=== PATIENT | male | born 1960 | race Caucasian/White ===

== ENCOUNTER 2020-04-03 06:25 | Observation (INO) ==
[2020-04-03] MEDS ORDERED: ONDANSETRON INJ 2 MG/ML 2 ML VIAL IV STA (06:56)
[2020-04-03] MEDS ORDERED: MoRPHine SULFATE 4 MG/ML 1 ML CARP\\VIAL IV PRN (06:56)
[2020-04-03] MEDS ORDERED: SODIUM CHLORIDE 0.9% 500 ML IV SCH (07:00)
[2020-04-03] MEDS: SODIUM CHLORIDE 0.9% 1000ML 1,000 ML IV SCH ×3 (07:56→18:18)
[2020-04-03 08:24] LABS: Basophils # (auto) 0.01 K/uL (0-0.2); Basophils % (auto) 0.1 %; Eosinophils # (auto) 0.01 K/uL (0-0.5); Eosinophils % (auto) 0.1 %; Hematocrit (blood only) 47.6 % (42-52); Hemoglobin 17.2 g/dL (14.0-18.0); Immature Granulocytes # (auto) 0.03 K/uL (0.00-0.02); Immature Granulocytes % (auto) 0.2 %; Lymphocytes # (auto) 1.15 K/uL (1.2-3.4); Lymphocytes % (auto) 7.4 %; Mean Corpuscular Hemoglobin 32.1 pg (25-34); Mean Corpuscular Hgb Conc 36.1 g/dL (32-36); Mean Corpuscular Volume 88.8 fL (80-100); Mean Platelet Volume 11.2 fL (7.4-10.4); Monocytes # (auto) 0.97 K/uL (0.11-0.59); Monocytes % (auto) 6.2 %; Neutrophils # (auto) 13.42 K/uL (1.4-6.5); Platelet Count 254 K/uL (130-400); RDW Coefficient of Variation 12.6 % (11.5-14.5); RDW Standard Deviation 40.2 fL (36.4-46.3); Red Blood Count 5.36 M/uL (4.7-6.1); White Blood Count 15.59 K/uL (4.8-10.8)
[2020-04-03 08:44] LABS: Albumin Level 3.9 gm/dl (3.4-5.0); BUN Creatinine Ratio 9.6 (10-20); Calcium 9.9 mg/dl (8.5-10.1); Creatinine Clr Calc Pharmacy 39.3 ml/min; Est GFR (African American) 35.9; Potassium 4.1 mmol/L (3.5-5.1)
[2020-04-03 08:47] LABS: Albumin Globulin Ratio 0.9 (0.9-2); Bilirubin,Total 0.8 mg/dl (0.2-1); Globulin 4.3 gm/dl (2.5-4.0); Total Protein 8.2 gm/dl (6.4-8.2)
[2020-04-03] MEDS ORDERED: PIPERACILLIN/TAZOBACTAM 4.5 GM/120 ML BAG IV ONE (09:24)
[2020-04-03] MEDS ORDERED: PIPERACILL/TAZOBAC CONSULT ACTIVE PRN (09:24)
[2020-04-03] MEDS ORDERED: SODIUM CHLORIDE 0.9% 1000ML 500 ML IV ONE (09:25)
--- NOTE | 2020-04-03 09:53 | XRay Report ---
XR chest 1V portable CLINICAL HISTORY: SOB, fevers, syncope pain. Dyspnea. COMPARISON STUDY: 11/27/2019 FINDINGS: The bones soft tissues and hemidiaphragms are normal. The cardiomediastinal silhouette is n ormal. The lungs are clear. The pulmonary vasculature is normal. IMPRESSION: Negative chest. ACT 112: Negative or not required by law. The above report was generated using voice recognition software. It may contain grammatical, syntax or spelling errors. Electronically signed by: Krishna Park M.D. 04/03/2020 9:52 AM
--- NOTE | 2020-04-03 12:37 | CT Scan Report ---
CT abd pelvis wo con CT DOSE: 880.13 mGycm HISTORY: Pelvic and left lower quadrant pain diverticulitis, ARF TECHNIQUE: Multiaxial CT images of the abdomen and pelvis were performed without contrast. A dose lo wering technique was utilized adhering to the principles of ALARA. COMPARISON STUDY: None. FINDINGS: Lung bases are clear. Liver spleen and pancreas are unremarkable. 2 mm nonobstructing cortical right renal calcification. No evidence for renal hydronephrosis. The upper abdominal bowel pattern is nonobstructive. Dilation of the bowel within the pelvic region demonstrates considerable wall thickening of the sigmo id colon. There is a trace amount of pericolonic infiltrative change. This appears to be a combinatio n of acute diverticulitis superimposed upon chronic diverticular change. No evidence for abscess collection or obstruction. IMPRESSION: 1. Chronic sigmoid diverticulosis with a small component of acute superimposed diverticulitis. 2. No evidence for abscess collection or obstruction. ACT 112: Negative or not required by law. The above report was generated using voice recognition software. It may contain grammatical, syntax or spelling errors. Electronically signed by: Krishna Park M.D. 04/03/2020 12:30 PM
--- NOTE | 2020-04-03 13:39 | History & Physical Report ---
Date of Service April 03, 2020 Assessment & Plan (1) Diverticulitis: H/O Outpatient CT abd/pelvis on 02/11/2020 with probable mild sigmoid diverticulitis. Was prescribed Cipro 500mg BID and Flagyl 500mg TID x 10 days however reports took 3 days and discontinued secondary to not tolerating No h/o colonoscopy in past In ER pt afebrile, P: 50-66, R: 26 down to 18, BP: 101/63, 97/55, 109/62, 95% on RA WBC: 15, Initial lactate 2.[address] ABD/PELVIS: 1. Chronic sigmoid diverticulosis with a small component of acute superimposed diverticulitis. 2. No evidence for abscess collection or obstruction. -In ER given Zosyn, 1L NSS, zofran -Continue Zosyn with renal dosing -IVF -Clear liquid diet -GI consult -CBC, BMP in am (2) Fever: Likely secondary to diverticulitis reported fever and chills past couple of days Afebrile in ER. WBC: 15, Initial lactate 2.2 down to 1.6 CXR: no acute infiltrate -Covid 19 swab pending from ER -Airborne, contact precautions at this time -CBC in am (3) JOSH (acute kidney injury): Cr: 2.2. Baseline Cr: 1.2 -Monitor renal functions -Hold lisinopril, HCTZ and adjust home meds for renal dosing -Avoid nephrotoxic agents when possible -IVF -If no improvement or worsening consider nephrology consult (4) Syncope: Reported 3 syncopal events over past 24 hours Likely secondary to underlying illness -Tele to monitor for any arrhythmias -orthostatic vital signs (5) HTN (hypertension): BP's on low side in ER -Hold lisinopril and HCTZ (6) Gout: -Decrease allopurinol from 100mg daily to 50mg daily secondary to JOSH. Monitor and may need further decreased dosing if worsening renal functions (7) Depression: Recently started duloxetine -Continue duloxetine, however if renal functions worsen and CrCl<30 plan to hold duloxetine DVT Prophylaxis -SCDs Full Code as per discussion with pt Follows with Dr Herrera for routine care Pt seen by Dr Melgoza. Pt care coordinated with Dr Melgoza. HPI and PE per Dr Melgoza, See addendum for further assessment and plan History of Present Illness This is 59 year old with incompletely treated acute diverticulitis as outpatient and then had 3 syncope episodes at home, first one started the night before ED presentation when he was urinating and felt like he was seeing tunnel vision and then passed out for a couple minutes and found by his girlfriend Ada, then again in subsequent morning when he was about to make bowel movement with bad abdomen pain while bearing down to defecate a loose bowel movement) and he was able to get from toilet to bath tub and passed out there and also found by Ada after some minutes, and then after some time he had a vomiting episode, and then he reports third syncope while EMS tries to get him from chair to stretcher on review of systems: no fever, no headache, no current dizziness or lightheadedness. no abdomen pain. no nausea now. no chest pain. no palpitations. no shortness of breath. -he did not complete outpatient 10 day course of ciprofloxacin for diverticul itis and only around 3 days of outpatient medication due to problems with medication tolerance -ALLERGIES: he denies allergies to medications or foods -FAMILY HISTORY: reports family history of colon cancer of father, patient denies ever having colonoscopy in his own life. -ADMISSION imaging: CT abdomen: Chronic sigmoid diverticulosis with a small component of acute superimposed diverticulitis. No evidence for abscess collection or obstruction -ADMISSION labs: elevated lactic acid of 2.2 and downtrended with IV fluids, WBC on admission 15K/ul, ED physician started IV Zosyn. Continue IV Zosyn and follow the blood cultures Chief Complaint: Fever Primary Care Provider: Kb Herrera DO Allergies Allergy/AdvReac Type Severity Reaction Status Date / Time No Known Allergies Allergy Unverified 04/03/20 06:34 Home Medications Home Medications Medication Instructions Recorded Confirmed Type allopurinol 100 mg PO DAILY 04/03/20 04/03/20 History duloxetine 30 mg PO BID 04/03/20 04/03/20 History hydrochlorothiazide 25 mg PO DAILY 04/03/20 04/03/20 History lisinopril 40 mg PO DAILY 04/03/20 04/03/20 History nicotine 1 patch TRANSDERMAL DAILY 04/03/20 04/03/20 History Past Med/Surg History Medical History (Updated 04/03/20 @ 13:54 by Rlua Leivne PA-C) Depression Gout HTN (hypertension) Osteoarthritis Surgical History (Updated 04/03/20 @ 13:37 by Rula Levine PA-C) No significant past surgical history Family History (Updated 04/03/20 @ 13:43 by Rula Levine PA-C) Father Colorectal cancer Social History (Updated 04/03/20 @ 13:43 by Rula Levine PA-C) Preferred Language: Sami Feels Safe at Home: Yes Smoking Status: Former smoker Hx Alcohol Use: No Hx Substance Use: Yes substance use type: marijuana Last Used Substance Other:: daily use; last used 04/02/2020 Review of Systems Review of Systems: All systems reviewed & are unremarkable except as noted in Subjective Physical Exam Constitutional: comfortable Eyes: PERRL, conjunctivae normal, anicteric sclerae EOM intact bilaterally ENMT: external ear and nose normal, oropharynx normal Neck: trachea midline, no thyromegaly normal visual inspection Respiratory: normal respiratory effort, lungs clear to auscultation Cardiovascular: Rate/Rhythm: + bradycardic Gastrointestinal (Abdomen): Percussion/Palpation: + abdomen tender and abdomen soft Neurologic: PERRL, EOMI, accommodation nl, no face palsy, no dysarthria CN's II-XI intact bilaterally Psychiatric: A+Ox3, euthymic affect Results & Data Results & Data ([facility]) Vital Signs (Past 12 Hours) Vital Signs Temp Pulse Pulse Resp BP BP Pulse Ox 04/03/20 12:40 66 18 109/62 98 04/03/20 11:32 62 12 128/81 99 04/03/20 10:00 68 14 97/55 L 98 04/03/20 08:30 56 L 20 105/59 L 95 04/03/20 07:26 58 L 20 113/75 100 04/03/20 07:07 97 04/03/20 06:39 36.4 C L 50 L 26 H 101/63 95 Laboratory Results Short CBC 04/03/20 Range/Units 07:45 WBC 15.59 H (4.8-10.8) K/uL Hgb 17.2 (14.0-18.0) g/dL Hct 47.6 (42-52) % Plt Count 254 (130-400) K/uL BMP 04/03/20 07:45 Sodium 134 L Potassium 4.1 Chloride 100 Carbon Dioxide 24 BUN 21 H Creatinine 2.21 H Glucose 180 H Calcium 9.9 Liver Function 04/03/20 Range/Units 07:45 Total Bilirubin 0.8 (0.2-1) mg/dl AST 9 L (15-37) U/L ALT 22 (12-78) U/L Alkaline Phosphatase 87 (45-117) U/L Albumin 3.9 (3.4-5.0) gm/dl Diagnostic Findings CT ABD/PELVIS: IMPRESSION: 1. Chronic sigmoid diverticulosis with a small component of acute superimposed diverticulitis. 2. No evidence for abscess collection or obstruction. CXR: IMPRESSION: Negative chest. ECG Rate (beats per minute): 73 Rhythm: sinus rhythm Code Status & VTE Plan VTE Prophylaxis Plan VTE Prophylaxis will be ordered: Yes Supervising Physician Co-Signing Physician Notes I, Dr. Ata Melgoza, have seen and examined the patient and agrees with physician group fitness assistant department head and would like to comment that On exam General: no acute distress HEENT: normal Heart: bradycardia Lungs: clear to auscultation bilaterally Abdomen: soft, tenderness to palpation of lower to left abdomen Neuro/Extremities: no deficits, awake and alert and oriented x 3 Assessment and Plan Syncope -This is 59 year old with incompletely treated acute diverticulitis as outpatient and then had 3 syncope episodes at home, first one started the night before ED presentation when he was urinating and felt like he was seeing tunnel vision and then passed out for a couple minutes and found by his girlfriend Cris guzman, then again in subsequent morning when he was about to make bowel movement with bad abdomen pain while bearing down to defecate a loose bowel movement) and he was able to get from toilet to bath tub and passed out there and also found by Ada after some minutes, and then after some time he had a vomiting episode, and then he reports third syncope while EMS tries to get him from chair to stretcher. -these syncope episodes appear to be vasovagal versus from illness from diverticulitis, infection -rule out COVID-19 -monitor on telemetry ACUTE DIVERTICULITIS -he did not complete outpatient 10 day course of ciprofloxacin for diverticulitis and only around 3 days of outpatient medication due to problems with medication tolerance -denies allergies to medications -reports family history of colon cancer of father, patient denies ever having colonoscopy in his own life. -CT abdomen: Chronic sigmoid diverticulosis with a small component of acute superimposed diverticulitis. No evidence for abscess collection or obstruction -elevated lactic acid of 2.2 and downtrended with IV fluids, WBC on admission 15K/ul, ED physician started IV Zosyn. Continue IV Zosyn and follow the blood cultures -prn pain medication and prn antimetics -request gastroenterology consult to follow while inpatient, patient may benefit from outpatient colonoscopy after resolution of acute inflammation ACUTE KIDNEY INJURY -admission creatinine 2.2, give IV fluids and follow the creatinine Hypertension -blood pressure is not elevated on admission -hold home dose HCTZ and Lisinopril History of gout -no acute flares -continue home dose allopurinol History of Joint pain -continue home dose duloxetine Marijuana use -reports daily marijuana use to help calm him Tobacco History -reports 30 year smoking history but quit 1 month ago Code Status is full code as per my discussion with patient Ada ([phone]) is patients [facility] girlfriend whom he lives with and he would allow her to help with medical decision making if he becomes unable to make medical decisions -My colleague Dr. Oneal will be taking over the care of the patient as hospitalist starting on 04/04/2020
[2020-04-03] MEDS ORDERED: ACETAMINOPHEN 325 MG TAB PO PRN (15:54)
[2020-04-03] MEDS ORDERED: PROMETHAZINE HCL 12.5 MG in SODIUM CHLORIDE 0.9% 50 ML IV PRN (15:54)
--- NOTE | 2020-04-03 16:17 | Electrocardiogram Report ---
Test Reason : Blood Pressure : / mmHG Vent. Rate : 073 BPM Atrial Rate : 073 BPM P-R Int : 194 ms QRS Dur : 090 ms QT Int : 436 ms P-R-T Axes : 055 035 033 degrees QTc Int : 480 ms Normal sinus rhythm Minor Anterior ST elevation, most consistent with repolarization variant Prolonged QT Abnormal ECG No previous ECGs available Confirmed by Melchor Resendiz ([id number]) on 04/03/2020 4:16:57 PM Referred By: REFERRED SELF Confirmed By:Melchor Resendiz
[2020-04-03] MEDS: PIPERACILLIN/TAZOBACTAM 3.375 GM in DEXTROSE 5% 100 ML IV SCH (17:14)
--- NOTE | 2020-04-03 17:14 | Emergency Department Note ---
History of Present Illness General Chief complaint: Syncope Time Seen by Provider: 04/03/20 06:41 Source: patient and RN notes reviewed Mode of arrival: ambulatory Limitations: no limitations History of Present Illness Provider complaint: Syncope, abdominal pain Maximum Pain Intensity: 1 This patient is a 59-year-old male who presents to the emergency department by ambulance after a syncopal episode. Patient states he has had some abdominal pain since early this morning. He felt lightheaded and apparently had a syncopal episode. Patient states he felt as though he might have a bowel movement and "forced" himself up onto the toilet. The patient strained to have a bowel movement and had a subsequent syncopal episode. Patient's significant other called the ambulance. Patient admits to some subjective fevers and chills, left lower quadrant abdominal pain and some shortness of breath. He denies any blood in the stools. Patient was recently treated for diverticulitis as an outpatient. Home Medications Home Medications Medication Instructions Recorded Confirmed Type allopurinol 100 mg PO DAILY 04/03/20 04/03/20 History duloxetine 30 mg PO BID 04/03/20 04/03/20 History hydrochlorothiazide 25 mg PO DAILY 04/03/20 04/03/20 History lisinopril 40 mg PO DAILY 04/03/20 04/03/20 History nicotine 1 patch TRANSDERMAL DAILY 04/03/20 04/03/20 History Allergies Allergy/AdvReac Type Severity Reaction Status Date / Time No Known Allergies Allergy Unverified 04/03/20 06:34 Past Med/Surg History Medical History Depression Gout HTN (hypertension) Osteoarthritis Surgical History No significant past surgical history Family History Father Colorectal cancer Social History Preferred Language: Kuwaiti Communication Ability: Effective 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 and A total of 10 systems reviewed and were otherwise negative Physical Exam Vital Signs Vital Signs - 24 hr 04/03/20 07:26 04/03/20 08:30 04/03/20 10:00 Pulse Rate [Right Finger] 58 L 56 L 68 Pulse Rhythm [Right Finger] Pulse Strength [Right Finger] Respiratory Rate 20 20 14 Respiratory Effort / Characteristics Non-Labored Respiratory Depth Normal Respiratory Pattern Blood Pressure [Right Arm] 113/75 105/59 L 97/55 L Blood Pressure Mean [Right Arm] 87 74 69 Blood Pressure Position [Right Arm] Pulse Oximetry 100 95 98 Oxygen Delivery Method Room Air Room Air Room Air 04/03/20 11:32 04/03/20 12:40 Pulse Rate [Right Finger] 62 66 Pulse Rhythm [Right Finger] Regular Pulse Strength [Right Finger] Normal Respiratory Rate 12 18 Respiratory Effort / Characteristics Non-Labored Spontaneous Respiratory Depth Normal Respiratory Pattern Regular Blood Pressure [Right Arm] 128/81 109/62 Blood Pressure Mean [Right Arm] 96 77 Blood Pressure Position [Right Arm] Lying Pulse Oximetry 99 98 Oxygen Delivery Method Room Air Room Air Vital signs reviewed. General: Generally well-appearing 59-year-old male lying on his right side in some discomfort. HEENT: No scleral icterus, PERRLA, neck supple. Atraumatic. Cardiovascular: Regular rate and rhythm, no extra sounds. Pulmonary: Clear to auscultation bilaterally, normal work of breathing. Abdomen: Soft, some tenderness noted to the left lower quadrant, no rebound or guarding, nondistended, positive bowel sounds. Musculoskeletal: Atraumatic, no peripheral edema. Neurologic: Patient awake alert and oriented x 3. Skin: Warm, dry, no rash Course Administered Medications Duloxetine HCl (Cymbalta) 30 mg PO BID [facility] Stop: 05/03/20 20:59 Last Admin: 04/03/20 20:39 Dose: 30 mg Documented by: [id number] Sodium Chloride (Nss 1000ml) 1,000 mls @ 100 mls/hr IV .Q10H [facility] Stop: 04/04/20 11:53 Last Admin: 04/04/20 01:37 Dose: 100 mls/hr Documented by: [id number] Infusion: 04/04/20 01:37 Dose: 100 mls/hr Documented by: [id number] Admin: 04/03/20 17:14 Dose: 100 mls/hr Documented by: [id number] Piperacillin Sod/Tazobactam (Sod 3.375 gm/ Dextrose) 115 mls @ 28.75 mls/hr IV Q8H [facility]OB[facility]; Protocol Stop: 04/13/20 16:59 Last Infusion: 04/04/20 05:38 Dose: 0 mls/hr Documented by: [id number] Admin: 04/04/20 01:37 Dose: 28.8 mls/hr Documented by: [id number] Infusion: 04/03/20 21:30 Dose: 0 mls/hr Documented by: [id number] Admin: 04/03/20 17:14 Dose: 28.8 mls/hr Documented by: [id number] Discontinued Medications Sodium Chloride (Nss) 500 mls @ 999 mls/hr IV .Q31M [facility] Stop: 04/03/20 07:30 Last Infusion: 04/03/20 09:19 Dose: 0 mls/hr Documented by: [id number] Admin: 04/03/20 07:56 Dose: 999 mls/hr Documented by: [id number] Sodium Chloride (Nss 1000ml) 1,000 mls @ 125 mls/hr IV .Q8H [facility] Stop: 05/03/20 06:59 Last Admin: 04/03/20 18:18 Dose: Not Given Documented by: [id number] Infusion: 04/03/20 18:16 Dose: 0 mls/hr Documented by: [id number] Admin: 04/03/20 07:56 Dose: 125 mls/hr Documented by: [id number] Piperacillin Sod/Tazobactam Sod (Zosyn) 4.5 gm in 120 mls @ 240 mls/hr IV NOW ONE Stop: 04/03/20 09:53 Last Infusion: 04/03/20 12:40 Dose: 0 mls/hr Documented by: [id number] Admin: 04/03/20 11:23 Dose: 240 mls/hr Documented by: [id number] Sodium Chloride (Nss 1000ml) 500 mls @ 999 mls/hr IV .Q31M ONE Stop: 04/03/20 09:55 Last Infusion: 04/03/20 11:53 Dose: 0 mls/hr Documented by: [id number] Admin: 04/03/20 11:24 Dose: 999 mls/hr Documented by: [id number] Morphine Sulfate (Morphine Sulfate) 4 mg IV Q15M PRN PRN Reason: Pain Stop: 04/17/20 06:55 Last Admin: 04/03/20 07:56 Dose: 4 mg Documented by: [id number] Ondansetron HCl (Zofran) 4 mg IV NOW STA Stop: 04/03/20 06:57 Last Admin: 04/03/20 07:56 Dose: 4 mg Documented by: [id number] Medical Decision Making Differential Diagnosis Differential diagnosis: Etiologies such as COVID, biliary colic, cholecystitis, hepatitis, pancreatitis, cardiac disease, pancreatitis, gastritis, peptic ulcer disease, appendicitis, cystitis, diverticulitis, mesenteric ischemia, inflammatory bowel disease, ileus, bowel obstruction, testicular torsion, aortic pathology, shingles, as well as others were considered. Medical Records Attestation: I reviewed the patient's medical records. Home Medications Current Medication List: was personally reviewed by me Laboratory Data Attestation: I reviewed the patient's lab results. Result diagrams: 04/03/20 07:45 04/03/20 07:45 Lab Results 04/03/20 04/03/20 04/03/20 Range/Units 07:45 07:45 07:45 WBC 15.59 H (4.8-10.8) K/uL RBC 5.36 (4.7-6.1) M/uL Hgb 17.2 (14.0-18.0) g/dL Hct 47.6 (42-52) % MCV 88.8 (80-100) fL MCH 32.1 (25-34) pg MCHC 36.1 H (32-36) g/dL RDW Std Deviation 40.2 (36.4-46.3) fL RDW Coeff of Tavares 12.6 (11.5-14.5) % Plt Count 254 (130-400) K/uL MPV 11.2 H (7.4-10.4) fL Immature Gran % (Auto) 0.2 % Neut % (Auto) 86.0 % Lymph % (Auto) 7.4 % [place] % (Auto) 6.2 % Eos % (Auto) 0.1 % Baso % (Auto) 0.1 % Neut # (Auto) 13.42 H (1.4-6.5) K/uL Lymph # (Auto) 1.15 L (1.2-3.4) K/uL [place] # (Auto) 0.97 H (0.11-0.59) K/uL Eos # (Auto) 0.01 (0-0.5) K/uL Baso # (Auto) 0.01 (0-0.2) K/uL Immature Gran # (Auto) 0.03 H (0.00-0.02) K/uL Sodium 134 L (136-145) mmol/L Potassium 4.1 (3.5-5.1) mmol/L Chloride 100 (98-107) mmol/L Carbon Dioxide 24 (21-32) mmol/L Anion Gap 9.0 (3-11) BUN 21 H (7-18) mg/dl Creatinine 2.21 H (0.6-1.4) mg/dl Est Cr Clr Drug Dosing 39.3 ml/min Est GFR ( Amer) 35.9 Est GFR (Non-Af Amer) 31.0 BUN/Creatinine Ratio 9.6 L (10-20) Glucose 180 H (70-99) mg/dl Lactate 2.2 H* (0.4-2.0) mmol/L Calcium 9.9 (8.5-10.1) mg/dl Total Bilirubin 0.8 (0.2-1) mg/dl AST 9 L (15-37) U/L ALT 22 (12-78) U/L Alkaline Phosphatase 87 (45-117) U/L Total Protein 8.2 (6.4-8.2) gm/dl Albumin 3.9 (3.4-5.0) gm/dl Globulin 4.3 H (2.5-4.0) gm/dl Albumin/Globulin Ratio 0.9 (0.9-2) Lipase 84 (73-393) U/L Hepatitis C Ab Screen (Neg) 04/03/20 04/03/20 Range/Units 07:58 09:37 WBC (4.8-10.8) K/uL RBC (4.7-6.1) M/uL Hgb (14.0-18.0) g/dL Hct (42-52) % MCV (80-100) fL MCH (25-34) pg MCHC (32-36) g/dL RDW Std Deviation (36.4-46.3) fL RDW Coeff of Tavares (11.5-14.5) % Plt Count (130-400) K/uL MPV (7.4-10.4) fL Immature Gran % (Auto) % Neut % (Auto) % Lymph % (Auto) % [place] % (Auto) % Eos % (Auto) % Baso % (Auto) % Neut # (Auto) (1.4-6.5) K/uL Lymph # (Auto) (1.2-3.4) K/uL [place] # (Auto) (0.11-0.59) K/uL Eos # (Auto) (0-0.5) K/uL Baso # (Auto) (0-0.2) K/uL Immature Gran # (Auto) (0.00-0.02) K/uL Sodium (136-145) mmol/L Potassium (3.5-5.1) mmol/L Chloride (98-107) mmol/L Carbon Dioxide (21-32) mmol/L Anion Gap (3-11) BUN (7-18) mg/dl Creatinine (0.6-1.4) mg/dl Est Cr Clr Drug Dosing ml/min Est GFR ( Amer) Est GFR (Non-Af Amer) BUN/Creatinine Ratio (10-20) Glucose (70-99) mg/dl Lactate 1.6 (0.4-2.0) mmol/L Calcium (8.5-10.1) mg/dl Total Bilirubin (0.2-1) mg/dl AST (15-37) U/L ALT (12-78) U/L Alkaline Phosphatase (45-117) U/L Total Protein (6.4-8.2) gm/dl Albumin (3.4-5.0) gm/dl Globulin (2.5-4.0) gm/dl Albumin/Globulin Ratio (0.9-2) Lipase (73-393) U/L Hepatitis C Ab Screen Neg (Neg) Imaging Data Radiologist's Impression: CT abd pelvis wo con CT DOSE: 880.13 mGycm HISTORY: Pelvic and left lower quadrant pain diverticulitis, ARF TECHNIQUE: Multiaxial CT images of the abdomen and pelvis were performed without contrast. A dose lowering technique was utilized adhering to the principles of ALARA. COMPARISON STUDY: None. FINDINGS: Lung bases are clear. Liver spleen and pancreas are unremarkable. 2 mm nonobstructing cortical right renal calcification. No evidence for renal hydronephrosis. The upper abdominal bowel pattern is nonobstructive. Dilation of the bowel within the pelvic region demonstrates considerable wall thickening of the sigmoid colon. There is a trace amount of pericolonic i nfiltrative change. This appears to be a combination of acute diverticulitis superimposed upon chronic diverticular change. No evidence for abscess collection or obstruction. IMPRESSION: 1. Chronic sigmoid diverticulosis with a small component of acute superimposed diverticulitis. 2. No evidence for abscess collection or obstruction. ACT 112: Negative or not required by law. The above report was generated using voice recognition software. It may contain grammatical, syntax or spelling errors. Electronically signed by: Krishna Park M.D. 04/03/2020 12:30 PM Dictated: 04/03/20 1225 Transcribed: 04/03/201224 XR chest 1V portable CLINICAL HISTORY: SOB, fevers, syncope pain. Dyspnea. COMPARISON STUDY: 11/27/2019 FINDINGS: The bones soft tissues and hemidiaphragms are normal. The cardiomediastinal silhouette is normal. The lungs are clear. The pulmonary vasculature is normal. IMPRESSION: Negative chest. ACT 112: Negative or not required by law. The above report was generated using voice recognition software. It may contain grammatical, syntax or spelling errors. Electronically signed by: Krishna Park M.D. 04/03/2020 9:52 AM Dictated: 04/03/20 0952 Transcribed: 04/03/2052 ECG Data Attestation: I personally reviewed and interpreted this ECG as follows: Indication: + abdominal pain Rate (beats per minute): 73 Rhythm: + normal sinus ECG Intervals/blocks: + Normal QT-c (480) ECG ST segments: + ST elevation (anterior. likely repolarization variant) ECG Findings: no PACs and no PVCs Blood Pressure Blood Pressure Findings: Normal blood pressure Blood Pressure Disposition: further management by hospitalist MDM Narrative This patient was evaluated and appeared to be in no significant distress. Patient was placed on airborne precautions. IV access was obtained and laboratory work was drawn. An order for cardiac monitoring was placed and the patient is found to be in a normal sinus rhythm with ST elevation in the anterior leads, more likely repolarization abnormality as opposed to ischemic change. Patient's laboratory work is significant for a leukocytosis of 15.6 and a creatinine of 2.2. This is an acute change from just several months ago. Patient does have a lactate of 2.2. He did receive IV hydration with a subsequent lactate at 1.6. CT scan of the abdomen pelvis was ordered however there was a significant delay in obtaining the study. Patient did receive 1 dose of IV Zosyn for an apparent diverticulitis on CT scan. Case was discussed with the [facility] hospitalist service who evaluated the patient for admission and further management. Patient is aware of the plan and agrees. I did speak with his significant other at his request. There was a significant delay in obtaining the CAT scan with a subsequent delay in transfer from the emergency department to his admission bed. Impression & Plan Diverticulitis, Elevated lactic acid level Discharge Plan Visit Data *Final* Discharge Date/Time: 04/03/20 15:12 Chief Complaint: Syncope ED Provider: Mariana Muller Discharge Problem: Diverticulitis, Elevated lactic acid level Patient Disposition: Admitted As Inpatient Discharge Instructions Interventions: ED Discharge Assessment Last Done: 04/03/20 15:12
[2020-04-03] MEDS: DULOXETINE HCL 30 MG CAP PO SCH (20:39)
[2020-04-04] MEDS: PIPERACILLIN/TAZOBACTAM 3.375 GM in DEXTROSE 5% 100 ML IV SCH ×2 (01:37→08:00)
[2020-04-04] MEDS: SODIUM CHLORIDE 0.9% 1000ML 1,000 ML IV SCH (01:37)
[2020-04-04 06:28] LABS: Appearance Urine Clear (Clear); Bacteria Urine Automated Negative (Negative); Bilirubin Urine Negative (Negative); Blood Urine Trace (Negative); Color Urine Yellow; Glucose Urine UA Negative (Negative); Ketones Urine Negative (Negative); Leukocyte Esterase Urine Negative (Negative); Nitrite Urine Negative (Negative); Protein Urine Trace (Negative); RBC Urine Automated 0-4 /hpf (0-4); Specific Gravity Urine 1.016 (1.000-1.030); Urobilinogen Urine Negative (Negative); pH Urine 5.5 (4.5-7.5)
[2020-04-04] MEDS: DULOXETINE HCL 30 MG CAP PO SCH (07:58)
[2020-04-04 08:44] LABS: BUN Creatinine Ratio 14.1 (10-20); Calcium 8.9 mg/dl (8.5-10.1); Creatinine Clr Calc Pharmacy 54.8 ml/min; Est GFR (African American) 53.5; Est GFR (Non-African American) 46.2; Magnesium 2.1 mg/dl (1.8-2.4); Phosphorus 2.8 mg/dl (2.5-4.9); Potassium 3.9 mmol/L (3.5-5.1)
[2020-04-04 08:48] LABS: Basophils # (auto) 0.01 K/uL (0-0.2); Basophils % (auto) 0.1 %; Eosinophils # (auto) 0.03 K/uL (0-0.5); Eosinophils % (auto) 0.3 %; Hematocrit (blood only) 42.1 % (42-52); Hemoglobin 14.3 g/dL (14.0-18.0); Immature Granulocytes # (auto) 0.02 K/uL (0.00-0.02); Immature Granulocytes % (auto) 0.2 %; Lymphocytes # (auto) 1.68 K/uL (1.2-3.4); Lymphocytes % (auto) 15.6 %; Mean Corpuscular Hemoglobin 31.1 pg (25-34); Mean Corpuscular Volume 91.5 fL (80-100); Mean Platelet Volume 10.9 fL (7.4-10.4); Monocytes # (auto) 0.91 K/uL (0.11-0.59); Monocytes % (auto) 8.4 %; Neutrophils # (auto) 8.14 K/uL (1.4-6.5); Neutrophils % (auto) 75.4 %; Platelet Count 236 K/uL (130-400); RDW Coefficient of Variation 12.7 % (11.5-14.5); RDW Standard Deviation 42.6 fL (36.4-46.3); White Blood Count 10.79 K/uL (4.8-10.8)
[2020-04-04] MEDS ORDERED: NICOTINE 21 MG/24 HR TDSY TD SCH (09:00)
[2020-04-04] MEDS ORDERED: allopurinoL 100 MG TAB PO SCH (09:00)
[2020-04-04] MEDS ORDERED: HydrALAZINE HCL 20 MG/ML VIAL IV PRN (11:57)
--- NOTE | 2020-04-04 12:04 | Gastrointestinal Consultation ---
Date of Consultation April 04, 2020 Assessment & Plan (1) Diverticulitis: I discussed with the patient the importance of medication compliance, as he did not complete his antibiotic regimen in January. I would recommend Cipro 500 mg by mouth BID for 10 days and Flagyl 500 mg by mouth TID for 10 days. I would recommend a low fiber diet Will need colonoscopy as an outpatient in 6-8 weeks with [facility] Discussed case with Dr. Oneal History of Present Illness Reason for Consultation: Diverticulitis Attending Physician: Fidelia Oneal MD History of Present Illness Alirio Galeana presented to the ER yesterday with complaints of syncope, as well as LLQ abdominal pain. He was subsequently found to have a fever, elevated WBC count, elevated Cr and CT evidence of diverticulitis. He was subsequently admitted and placed on IVF and IV abx. Of note, he was diagnosed with Diverticulitis on outpatient CT imaging in late January, however, he did not complete his course of antibiotics as prescribed. At the time I saw the patient, he states that he is feeling much better. He has minimal LLQ abdominal pain, 1-2/10 in intensity, chronic, non-radiating, without exacerbating factors. He denies any fevers, chills, nausea, vomiting, hematemesis, melena, hematochezia or further episodes of syncope. He has tolerated clear liquid diet. He is requesting to go home, as he is feeling better. Allergies Allergy/AdvReac Type Severity Reaction Status Date / Time No Known Allergies Allergy Unverified 04/03/20 06:34 Home Medications Home Medications Medication Instructions Recorded Confirmed Type allopurinol 100 mg PO DAILY 04/03/20 04/03/20 History duloxetine 30 mg PO BID 04/03/20 04/03/20 History hydrochlorothiazide 25 mg PO DAILY 04/03/20 04/03/20 History lisinopril 40 mg PO DAILY 04/03/20 04/03/20 History nicotine 1 patch TRANSDERMAL DAILY 04/03/20 04/03/20 History Patient History Medical History Depression Gout HTN (hypertension) Osteoarthritis Surgical History No significant past surgical history Family History Father Colorectal cancer Social History Preferred Language: Scottish 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 Beliefs That Will Affect Care: None Current Living Situation: Significant Other Other Information That Helps Us Care for You: No Feels Safe at Home: Yes Safety Concerns: Feels Safe At This Time Smoking Status: Former smoker Tobacco Type: cigarettes ; Do You Dip or Chew Tobacco: No ; Second Hand Exposure: Yes ; Tobacco Cessation Education Requested by Patient: No Hx Alcohol Use: No Hx Substance Use: Yes substance use type: marijuana Last Used Substance: Hours (ago) Last Used Substance Other:: daily use; last used 04/02/2020 Review of Systems Constitutional: as per Subjective / HPI Eyes: as per Subjective / HPI Ear, Nose, Mouth, Throat: as per Subjective / HPI Respiratory: as per Subjective / HPI Cardiovascular: as per Subjective / HPI Gastrointestinal: as per Subjective / HPI Musculoskeletal: as per Subjective / HPI Integumentary: as per Subjective / HPI Neurologic: as per Subjective / HPI Psychiatric: as per Subjective / HPI Endocrine: as per Subjective / HPI Hematologic / Lymphatic: as per Subjective / HPI Allergy / Immunological: as per Subjective / HPI Physical Exam Constitutional: WD/WN, vitals as above Eyes: PERRL, conjunctivae normal, anicteric sclerae ENMT: external ear and nose normal, oropharynx normal Neck: trachea midline, no thyromegaly Respiratory: normal respiratory effort, lungs clear to auscultation Cardiovascular: RRR, no murmur, no edema Gastrointestinal (Abdomen): Inspection/Auscultation: normal bowel sounds; abdomen not distended Percussion/Palpation: + abdomen tender (LLQ) and abdomen soft; no guarding and abdomen not rigid Skin: no rashes, warm and dry Psychiatric: A+Ox3, euthymic affect Results & Data ([facility]) Vital Signs (Past 12 Hours) Vital Signs Temp Pulse Pulse Resp BP BP Pulse Ox 04/04/20 11:22 36.8 C 68 16 174/94 H 97 04/04/20 08:42 75 04/04/20 07:27 36.8 C 74 18 145/79 H 97 04/04/20 04:05 36.7 C 79 18 125/73 98 04/04/20 01:34 90 04/04/20 01:24 36.8 C 76 16 146/85 H 96 PG Care Time/CCT Total # of Minutes Spent Total Time Spent with Patient: Total time spent is greater than 50% in coordination of care (as documented) at patient's floor/unit and/or counseling patient: Coding Level of Care Code 88072 Inpt Consult Level 3 Diagnoses Diverticulitis K57.92
--- NOTE | 2020-04-04 15:31 | Hospitalist Progress Note ---
Date of Service April 04, 2020 Assessment & Plan (1) Diverticulitis: Present on admission with abdominal pain, vomiting and syncopal episodes CT abd/pelvis showed chronic sigmoid diverticulosis with a small component of acute superimposed diverticulitis. No evidence for abscess collection or obstruction. Recently was starting on Cipro and Flagyl and said that he only took about 3 days Then he said to the gastro team that he had a CT abd done and he was diagnosed with acute diverticulitis in January, but did not take the antibiotics that he was prescribed for at that time Started in the ER with IV zosyn Gastro on board Tolerated low fiber diet Pt wants to go home today Gastro recommended Cipro and flagyl PO for 10 days course Continue Low fiber diet for 6 weeks Follow up with Gastro for outpatient colonoscopy in 6 to 8 weeks Ok from Gastro standpoint to go home (2) Fever: Likely secondary to diverticulitis reported fever and chills past couple of days Afebrile in ER. WBC: 15, Initial lactate 2.2 down to 1.6 COVID 19 screening negative He has been afebrile WBC back to normal CXR: no acute infiltrate Received IV zosyn Will transition abx to Cipro and Flagyl PO (3) JOSH (acute kidney injury): Cr: 2.2. Baseline Cr: 1.2 Mostly due to dehydration Received IV fluid lisinopril, HCTZ on hold Creatinine today 1.5 Will avoid nephrotoxic agents when possible Will resume Lisinopril on discharge Continue to hold HCTZ Check BMP in 1 week Advised pt to stay 1 more night that we can trend the creatinine, but patient refused it (4) Syncope: Reported 3 syncopal events over past 24 hours Likely secondary to underlying illness and dehydratrion Tele monitor showed no arrhythmia Has been walking in the hallway with no discomfort Stable (5) HTN (hypertension): BP's on low side in ER BP elevated today Lisinopril and HCTZ on hold Received IV hydralazine BP improved Will resume Lisinopril on discharge Will hold HCTZ until creatinine back to baseline Continue monitor BP (6) Gout: Will resume allopurinol 100mg (7) Depression: Recently started duloxetine Continue duloxetine, however if renal functions worsen and CrCl<30 plan to hold duloxetine DVT Prophylaxis SCDs/Ambulate Full Code Disposition Pt does not want to stay in the hospital for another night Discharge home today Follow up with your PCP next week Check BMP next week Admission and Anticipated Discharge Date Admission Date: April 03, 2020 Subjective Pt was seen and examined Lying in bed with no distress Pt said that he feels fine He said that he tolerated the low fiber diet He wants to go home because he said that he is feeling better he said that he does not have any abdominal pain Denies any chest pain, palpitation, dizziness and SOB Physical Exam Physical Exam: General- No acute distress Head- atraumatic Eyes- PERRL, EOMI, ENT- oropharynx clear Neck- supple, no JVD Lungs- clear to auscultation Heart- regular rhythm; no murmur Abdomen- normal bowel sounds, soft, nontender Extremities- no calf tenderness Neuro- alert, oriented x 3; PERRL, EOMI; no facial palsy; no dysarthria Skin- warm & dry Results & Data Results & Data ([facility]) Vital Signs (Past 12 Hours) Vital Signs Temp Pulse Pulse Resp BP BP Pulse Ox 04/04/20 13:59 36.8 C 85 16 149/78 H 174/94 H 97 04/04/20 13:00 85 149/78 H 04/04/20 11:22 36.8 C 68 16 174/94 H 97 04/04/20 08:42 75 04/04/20 07:27 36.8 C 74 18 145/79 H 97 04/04/20 04:05 36.7 C 79 18 125/73 98
[2020-04-04] MEDS ORDERED: CIPROFLOXACIN 500 MG TAB PO SCH (16:05)
[2020-04-04] MEDS ORDERED: metroNIDAZOLE 500 MG TAB PO SCH (16:05)
--- NOTE | 2020-04-05 08:26 | Discharge Summary ---
Date of Service April 04, 2020 Admission HPI Per Admitting Provider This is 59 year old with incompletely treated acute diverticulitis as outpatient and then had 3 syncope episodes at home, first one started the night before ED presentation when he was urinating and felt like he was seeing tunnel vision and then passed out for a couple minutes and found by his girlfriend Ada, then again in subsequent morning when he was about to make bowel movement with bad abdomen pain while bearing down to defecate a loose bowel movement) and he was able to get from toilet to bath tub and passed out there and also found by Ada after some minutes, and then after some time he had a vomiting episode, and then he reports third syncope while EMS tries to get him from chair to stretcher on review of systems: no fever, no headache, no current dizziness or lightheadedness. no abdomen pain. no nausea now. no chest pain. no palpitations. no shortness of breath. -he did not complete outpatient 10 day course of ciprofloxacin for diverticulitis and only around 3 days of outpatient medication due to problems with medication tolerance -ALLERGIES: he denies allergies to medications or foods -FAMILY HISTORY: reports family history of colon cancer of father, patient denies ever having colonoscopy in his own life. -ADMISSION imaging: CT abdomen: Chronic sigmoid diverticulosis with a small component of acute superimposed diverticulitis. No evidence for abscess collection or obstruction -ADMISSION labs: elevated lactic acid of 2.2 and downtrended with IV fluids, WBC on admission 15K/ul, ED physician started IV Zosyn. Continue IV Zosyn and follow the blood cultures Admission Exam Per Admitting Provider Constitutional: comfortable Eyes: PERRL, conjunctivae normal, anicteric sclerae EOM intact bilaterally ENMT: external ear and nose normal, oropharynx normal Neck: trachea midline, no thyromegaly normal visual inspection Respiratory: normal respiratory effort, lungs clear to auscultation Cardiovascula + bradycardic Gastrointestinal: Percussion/Palpation: + abdomen tender and abdomen soft Neurologic: PERRL, EOMI, accommodation nl, no face palsy, no dysarthria CN's II-XI intact bilaterally Psychiatric: A+Ox3, euthymic affect Principal Diagnosis Diverticulitis: Fever: JOSH (acute kidney injury): Syncope: HTN (hypertension): Discharge Exam General- No acute distress Head- atraumatic Eyes- PERRL, EOMI, ENT- oropharynx clear Neck- supple, no JVD Lungs- clear to auscultation Heart- regular rhythm; no murmur Abdomen- normal bowel sounds, soft, nontender Extremities- no calf tenderness Neuro- alert, oriented x 3; PERRL, EOMI; no facial palsy; no dysarthria Skin- warm & dry Discharge Data Allergies Allergy/AdvReac Type Severity Reaction Status Date / Time No Known Allergies Allergy Unverified 04/03/20 06:34 Consultations 04/03/20 13:08 ED Decision to Admit Stat 04/03/20 15:54 Consult Gastroenterology Routine Ordered Studies 04/03/20 09:24 CT abd pelvis wo con Stat CT abd pelvis wo con CT DOSE: 880.13 mGycm HISTORY: Pelvic and left lower quadrant pain diverticulitis, ARF TECHNIQUE: Multiaxial CT images of the abdomen and pelvis were performed without contrast. A dose lowering technique was utilized adhering to the principles of ALARA. COMPARISON STUDY: None. FINDINGS: Lung bases are clear. Liver spleen and pancreas are unremarkable. 2 mm nonobstructing cortical right renal calcification. No evidence for renal hydronephrosis. The upper abdominal bowel pattern is nonobstructive. Dilation of the bowel within the pelvic region demonstrates considerable wall thickening of the sigmoid colon. There is a trace amount of pericolonic infiltrative change. This appears to be a combination of acute diverticulitis superimposed upon chronic diverticular change. No evidence for abscess collection or obstruction. IMPRESSION: 1. Chronic sigmoid diverticulosis with a small component of acute superimposed diverticulitis. 2. No evidence for abscess collection or obstruction. ACT 112: Negative or not required by law. The above report was generated using voice recognition software. It may contain grammatical, syntax or spelling errors. Electronically signed by: Krishna Park M.D. 04/03/2020 12:30 PM Dictated: 04/03/20 1225 Transcribed: 04/03/20 1225 XR chest 1V portable CLINICAL HISTORY: SOB, fevers, syncope pain. Dyspnea. COMPARISON STUDY: 11/27/2019 FINDINGS: The bones soft tissues and hemidiaphragms are normal. The cardiomediastinal silhouette is normal. The lungs are clear. The pulmonary vasculature is normal. IMPRESSION: Negative chest. ACT 112: Negative or not required by law. The above report was generated using voice recognition software. It may contain grammatical, syntax or spelling errors. Electronically signed by: Krishna Park M.D. 04/03/2020 9:52 AM Dictated: 04/03/20951 Transcribed: 04/03/20951 Hospital Course (1) Diverticulitis: Present on admission with abdominal pain, vomiting and syncopal episodes CT abd/pelvis showed chronic sigmoid diverticulosis with a small component of acute superimposed diverticulitis. No evidence for abscess collection or obstruction. Recently was starting on Cipro and Flagyl and said that he only took about 3 days Then he said to the gastro team that he had a CT abd done and he was diagnosed with acute diverticulitis in January, but did not take the antibiotics that he was prescribed for at that time Started in the ER with IV zosyn Gastro on board Tolerated low fiber diet Pt wants to go home today Gastro recommended Cipro and flagyl PO for 10 days course Continue Low fiber diet for 6 weeks Follow up with Gastro for outpatient colonoscopy in 6 to 8 weeks Ok from Gastro standpoint to go home (2) Fever: Likely secondary to diverticulitis reported fever and chills past couple of days Afebrile in ER. WBC: 15, Initial lactate 2.2 down to 1.6 COVID 19 screening negative He has been afebrile WBC back to normal CXR: no acute infiltrate Received IV zosyn Will transition abx to Cipro and Flagyl PO (3) JOSH (acute kidney injury): Cr: 2.2. Baseline Cr: 1.2 Mostly due to dehydration Received IV fluid lisinopril, HCTZ on hold Creatinine today 1.5 Will avoid nephrotoxic agents when possible Will resume Lisinopril on discharge Continue to hold HCTZ Check BMP in 1 week Advised pt to stay 1 more night that we can trend the creatinine, but patient refused it (4) Syncope: Reported 3 syncopal events over past 24 hours Likely secondary to underlying illness and dehydratrion Tele monitor showed no arrhythmia Has been walking in the hallway with no discomfort Stable (5) HTN (hypertension): BP's on low side in ER BP elevated today Lisinopril and HCTZ on hold Received IV hydralazine BP improved Will resume Lisinopril on discharge Will hold HCTZ until creatinine back to baseline Continue monitor BP (6) Gout: Will resume allopurinol 100mg (7) Depression: Recently started duloxetine Continue duloxetine, however if renal functions worsen and CrCl<30 plan to hold duloxetine DVT Prophylaxis SCDs/Ambulate Full Code Disposition Pt does not want to stay in the hospital for another night Discharge home today Follow up with your PCP next week Check BMP next week Total Time Total Time Spent Total Time Spent (In Minutes): 35 minutes Total Time Includes: Examination of the Patient, Discharge Planning, Medication Reconciliation, Communication With Other Providers and Other Discharge Plan Discharge Items Patient Disposition: Home - Self-Care Reason For Visit: DIVERTICULITIS,JOSH Discharge Diagnosis: Diverticulitis: Fever: JOSH (acute kidney injury): Syncope: HTN (hypertension): Activity: Resume your previous activity Non-emergency contact: Primary Care Provider Call non-emergency contact if: you have any medication questions, your symptoms worsen and your temperature is above 101 Follow-up/Referrals: Kb Herrera DO [Primary Care Provider] - Diet: Heart Healthy and Low Fiber Addtl Attending Provider Instructions: Follow up with your primary care provider Dr. Herrera within 1 week ( Please call to schedule for the appointment) Follow up with gastroenterology to arrange for a colonoscopy in 6-8 weeks Seek medical attention if your abdominal pain reoccurs or develop any fever Check BMP next week to monitor your kidney function Continue to hold the Hydrochlorothiazide until your kidney function is back to normal Monitor your blood pressure and bring your blood pressure log at your next appointment with your physician Follow up a low fiber diet for 6 weeks Please complete the course of the antibiotic with cipro and flagyl Pending Studies at Discharge: No Stand-Alone Forms: [facility] [id number], Smoking Cessation Medications and DC Order Prescriptions: Continued allopurinol 100 mg tablet 100 mg PO DAILY RF: 0 nicotine 21 mg/24 hr patch 24 hour 1 patch transdermal DAILY RF: 0 hydrochlorothiazide 25 mg tablet 25 mg PO DAILY RF: 0 lisinopril 40 mg tablet 40 mg PO DAILY RF: 0 duloxetine 30 mg capsule,delayed release(DR/EC) 30 mg PO BID RF: 0 Discharge Orders: Discharge Order (Routine); Ordered 04/04/20 Ordered By: Fidelia Oneal Admission Data Admit Date/Time: 04/03/20 13:33 Attending Provider: Fidelia Oneal Admit Provider: Ata Melgoza Primary Care Provider: Kb Herrera Other Providers: Ata Melgoza ; Rusty Davila Other Interventions: Discharge Summary Assessment (RN) Last Done: 04/04/20 13:59 DC Date/Time DO NOT enter until pt leaves facility: 04/04/20 17:45
== END 2020-04-04 17:45 | disposition home or self-care (01) ==
LOC: ED 06:25 → INTOOBSV 13:33 → 2S 13:33 → SUATTDRO 13:33 → 2S 15:12 → 2W 04-04 01:19

== ENCOUNTER 2020-09-04 00:02 | Observation (INO) ==
[2020-09-04] MEDS ORDERED: diphenhydrAMINE 50 MG/ML VIAL ONE (00:22)
[2020-09-04] MEDS ORDERED: DEXAMETHASONE SOD INJ 10 MG/ML VIAL IV ONE (00:24)
[2020-09-04] MEDS ORDERED: FAMOTIDINE 20MG IV PUSH 20 MG/5 ML SYR IV STA (00:27)
--- NOTE | 2020-09-04 00:50 | Emergency Department Note ---
Impression & Plan Allergic reaction, Angioedema ED Provider Note NAME: RAYMUNDO RUIZ JR AGE: 60 SEX: M ARRIVES VIA: Walk-In INFORMANT: Patient ED PROVIDER(S): Mary Renee DO CHIEF COMPLAINT: Painful swallowing PLAN: [facility] Condition: Good MEDICAL DECISION MAKING: This is a 60-year-old male patient who presents to the emergency department with painful swallowing and difficulty breathing. Patient has obvious edema to his uvula and posterior oropharynx as well as his right ear. Patient does take an NICOLAS inhibitor and his symptoms could be secondary to angioedema. Patient also had lobster for dinner and this could be a reaction to shellfish but this would be a new allergy for him. The patient did have some improvement in his symptoms after receiving epinephrine, Benadryl, Pepcid, Decadron and TXA. He will receive FFP to further treat the possibility of angioedema. Triage Nursing notes reviewed and agree them. Additional history obtained from the patient's longtime girlfriend who is at the bedside Prior medical records reviewed Vital Signs: reviewed and unremarkable Differential diagnosis: NICOLAS inhibitor induced angioedema; allergic reaction; anaphylaxis, epiglottitis, foreign body within the airway, COVID-19 ER treatment provided: IV Benadryl, IV Pepcid, IV Decadron, IV TXA, IV FFP Diagnostics interpreted by me: ECG: Normal sinus rhythm at a rate of 77. No ST segment elevation or signs of ischemia. There is no ectopy Cardiac Monitoring: Sinus rhythm at a rate of 84 Laboratory studies: See below HPI: 60/M arrives for evaluation of painful swallowing and difficulty breathing. The patient noticed around 8 PM this evening that he was developing a sore throat more specifically on the left side of his neck. The patient felt that the back of his throat was starting to swell. He then began to notice a change to his voice and difficulty breathing. He became concerned and his girlfriend started to drive him here. In route to the emergency department, the patient felt as if the back of his throat was starting to relax somewhat. He does admit that he had a similar episode to this a couple of months ago with left-sided throat pain that lasted for approximately 1 to 2 days but it was not nearly as severe. The patient did eat a food for dinner that contained lobster but he has had no previous shellfish allergy. The patient does take an NICOLAS inhibitor which she started taking 11 months ago. He has no other known allergies. ROS: See above HPI for pertinent positives & negatives. A total of 10 systems reviewed and were otherwise negative. PAST MEDICAL HISTORY:See Below PAST SURGICAL HISTORY:See Below FAMILY HISTORY:See Below SOCIAL HISTORY:See Below HOME MEDICATIONS:See list ALLERGIES:None VITALS:See Below PHYSICAL EXAMINATION: HEENT: Head - normocephalic and atraumatic. There is edema noted to the right ear pupils are equal, round, and reactive to light. Extraocular eye muscles are intact, and sclera are anicteric. Nose - moist nasal mucosa without discharge. Mouth -there is moderate edema noted to the uvula with severe edema noted in the posterior oropharynx. There is complete obstruction of visualization of the posterior airway. Neck: Supple; moderate fullness over the left anterior neck which is tender to palpation. There is no fullness noted in the submental region of the neck. The right anterior neck is unremarkable. There is no nuchal rigidity Heart: Regular rate and rhythm. There is a normal S1 and S2 with no murmurs, clicks, or gallops appreciated. Lungs: Clear to auscultation bilaterally with no wheezes, rales, or rhonchi. Abdomen: Soft, completely nontender, nondistended, with good bowel sounds. There are no palpable pulsatile masses or hepatosplenomegaly. There is no guarding, rigidity, or rebound noted. Extremities: No evidence of cyanosis, clubbing, or edema. There are easily palpable peripheral pulses. Skin: warm and dry with good turgor and no rashes. ED COURSE: Times/Reassessments: 0010: The patient was evaluated in room a 11. A complete history and physical was performed. An order was placed for continuous cardiac monitoring. The patient was in a normal sinus rhythm at a rate of 84. An IV lock was initiated and a twelve-lead EKG was obtained The patient was given IV Decadron, IV Benadryl and IV Pepcid. 0030: The patient was reevaluated at this time and vitals remained stable. He was feeling slightly better. He was given 1000 mg of TXA IV. Patient was ordered to have 2 units of FFP. I explained the situation to the patient's girlfriend who is now at the bedside. 0050: The patient was reevaluated at this time and thought that he was feeling slightly better. 0120: The patient thought that he was feeling slightly worse and that the right anterior aspect of his neck was starting to feel more full and painful and it was becoming more difficult for him to swallow. I ordered him to have 0.3 mg of IM epi. 0145: Patient continues to feel as if the right anterior aspect of his neck was starting to feel even tighter. The patient's O2 saturations remained normal. I paged for Dr. MINOR from ENT 0200: The patient is now starting to feel better. He states that he is now able to breathe through his nose and his voice is starting to sound more like normal. He remains hemodynamically stable. I discussed the case with ENT. 0235: The patient is able to rest comfortably at this time and breathe more normally. His right ear swelling has resolved and is voice is returning to normal. I discussed the case with Dr. Salazar who will evaluate the patient for further management. 0450: The patient was consented for the FFP. I have personally spent greater than 75 minutes of critical care time in the direct management of this patient. This includes bedside care, interpretation of diagnostic studies, and testing, discussion with consultants, patient, and family members, and other required patient management activities. This 75 minutes is in excess of all separately billable procedures. Mary Renee DO Past Med/Surg History Medical History (Updated 09/04/20 @ 05:01 by Mary Renee DO) Depression Elevated prostate specific antigen (PSA) Gout HTN (hypertension) Osteoarthritis Surgical History No significant past surgical history Family History Father Colorectal cancer Social History Smoking Status: Current every day smoker Tobacco Type: Cigarettes Second Hand Exposure: Yes; Hx Alcohol Use: No Hx Substance Use: Yes Last Used Substance: Hours (ago) Last Used Substance Other:: daily use; last used 04/02/2020 Preferred Language: Moroccan Communication Ability: Effective Jordan Worker Required: No Beliefs That Will Affect Care: None Current Living Situation: Significant Other Feels Safe at Home: Yes Assistive Devices: None Allergies Allergies Allergy/AdvReac Type Severity Reaction Status Date / Time No Known Allergies Allergy Unverified 09/04/20 00:09 Home Meds Home Medications Medication Instructions Recorded Confirmed allopurinol 100 mg PO DAILY 04/03/20 09/04/20 hydrochlorothiazide 25 mg PO DAILY 04/03/20 09/04/20 lisinopril 40 mg PO DAILY 04/03/20 09/04/20 nicotine 1 patch TRANSDERMAL DAILY 04/03/20 09/04/20 duloxetine 60 mg PO DAILY 09/04/20 09/04/20 esomeprazole magnesium 40 mg PO QAM 09/04/20 09/04/20 gabapentin 600 mg PO TID 09/04/20 09/04/20 Results & Data (ED) Vital Signs Vital Signs - 24 hr 09/04/20 00:05 09/04/20 00:34 09/04/20 01:00 Temperature 36.2 C L Temperature Source Oral Pulse Rate 88 78 78 Pulse Rate from SpO2 Sensor 77 77 Respiratory Rate 24 13 16 Respiratory Effort / Characteristics Non-Labored Spontaneous Respiratory Depth Normal Blood Pressure 125/82 113/79 123/86 Blood Pressure Mean 96 81 95 Pulse Oximetry 99 98 98 Oxygen Delivery Method Room Air Room Air Room Air Sepsis New/Unexplained Change in Mental Status N/A Sepsis Action Taken by Nursing No Action Required 09/04/20 01:16 09/04/20 01:30 09/04/20 02:00 Temperature Temperature Source Pulse Rate 76 78 Pulse Rate from SpO2 Sensor 74 76 79 Respiratory Rate 19 12 Respiratory Effort / Characteristics Respiratory Depth Blood Pressure 125/80 110/74 126/73 Blood Pressure Mean 86 78 88 Pulse Oximetry 99 97 98 Oxygen Delivery Method Room Air Room Air Room Air Sepsis New/Unexplained Change in Mental Status Sepsis Action Taken by Nursing 09/04/20 02:30 09/04/20 03:00 09/04/20 03:30 Temperature Temperature Source Pulse Rate 81 83 83 Pulse Rate from SpO2 Sensor 81 84 85 Respiratory Rate 11 L 11 L 18 Respiratory Effort / Characteristics Respiratory Depth Blood Pressure 119/65 130/76 133/81 Blood Pressure Mean 81 83 91 Pulse Oximetry 95 97 98 Oxygen Delivery Method Room Air Room Air Sepsis New/Unexplained Change in Mental Status Sepsis Action Taken by Nursing 09/04/20 04:00 09/04/20 04:30 Temperature Temperature Source Pulse Rate 76 Pulse Rate from SpO2 Sensor 76 82 Respiratory Rate 18 18 Respiratory Effort / Characteristics Respiratory Depth Blood Pressure 119/75 111/60 Blood Pressure Mean 80 81 Pulse Oximetry 96 96 Oxygen Delivery Method Sepsis New/Unexplained Change in Mental Status Sepsis Action Taken by Nursing Laboratory Data Result diagrams: 09/04/20 02:06 09/04/20 02:07 Lab Results 09/04/20 09/04/20 09/04/20 Range/Units 01:35 02:06 02:07 WBC 10.66 (4.8-10.8) K/uL RBC 4.37 L (4.7-6.1) M/uL Hgb 13.4 L (14.0-18.0) g/dL Hct 39.5 L (42-52) % MCV 90.4 (80-100) fL MCH 30.7 (25-34) pg MCHC 33.9 (32-36) g/dL RDW Std Deviation 42.2 (36.4-46.3) fL RDW Coeff of Tavares 12.8 (11.5-14.5) % Plt Count 267 (130-400) K/uL MPV 10.3 (7.4-10.4) fL Immature Gran % (Auto) 0.2 % Neut % (Auto) 67.5 % Lymph % (Auto) 25.0 % [place]haw % (Auto) 5.8 % Eos % (Auto) 1.3 % Baso % (Auto) 0.2 % Neut # (Auto) 7.20 H (1.4-6.5) K/uL Lymph # (Auto) 2.66 (1.2-3.4) K/uL [place] # (Auto) 0.62 H (0.11-0.59) K/uL Eos # (Auto) 0.14 (0-0.5) K/uL Baso # (Auto) 0.02 (0-0.2) K/uL Immature Gran # (Auto) 0.02 (0.00-0.02) K/uL Sodium 136 (136-145) mmol/L Potassium 3.5 (3.5-5.1) mmol/L Chloride 103 (98-107) mmol/L Carbon Dioxide 26 (21-32) mmol/L Anion Gap 7.0 (3-11) BUN 24 H (7-18) mg/dl Creatinine 1.70 H (0.6-1.4) mg/dl Est Cr Clr Drug Dosing 49.2 ml/min Est GFR ( Amer) 49.0 Est GFR (Non-Af Amer) 42.3 BUN/Creatinine Ratio 14.1 (10-20) Glucose 133 H (70-99) mg/dl Calcium 9.0 (8.5-10.1) mg/dl Magnesium 2.3 (1.8-2.4) mg/dl Total Bilirubin 0.4 (0.2-1) mg/dl AST 13 L (15-37) U/L ALT 16 (12-78) U/L Alkaline Phosphatase 79 (45-117) U/L Total Protein 7.0 (6.4-8.2) gm/dl Albumin 3.6 (3.4-5.0) gm/dl Globulin 3.4 (2.5-4.0) gm/dl Albumin/Globulin Ratio 1.1 (0.9-2) SARS-CoV-2 Ag (Rapid) (Negative) Blood Type A Positive Antibody Screen NEGATIVE 09/04/20 Range/Units 03:19 WBC (4.8-10.8) K/uL RBC (4.7-6.1) M/uL Hgb (14.0-18.0) g/dL Hct (42-52) % MCV (80-100) fL MCH (25-34) pg MCHC (32-36) g/dL RDW Std Deviation (36.4-46.3) fL RDW Coeff of Tavares (11.5-14.5) % Plt Count (130-400) K/uL MPV (7.4-10.4) fL Immature Gran % (Auto) % Neut % (Auto) % Lymph % (Auto) % Kershaw % (Auto) % Eos % (Auto) % Baso % (Auto) % Neut # (Auto) (1.4-6.5) K/uL Lymph # (Auto) (1.2-3.4) K/uL [place]ershaw # (Auto) (0.11-0.59) K/uL Eos # (Auto) (0-0.5) K/uL Baso # (Auto) (0-0.2) K/uL Immature Gran # (Auto) (0.00-0.02) K/uL Sodium (136-145) mmol/L Potassium (3.5-5.1) mmol/L Chloride (98-107) mmol/L Carbon Dioxide (21-32) mmol/L Anion Gap (3-11) BUN (7-18) mg/dl Creatinine (0.6-1.4) mg/dl Est Cr Clr Drug Dosing ml/min Est GFR ( Amer) Est GFR (Non-Af Amer) BUN/Creatinine Ratio (10-20) Glucose (70-99) mg/dl Calcium (8.5-10.1) mg/dl Magnesium (1.8-2.4) mg/dl Total Bilirubin (0.2-1) mg/dl AST (15-37) U/L ALT (12-78) U/L Alkaline Phosphatase (45-117) U/L Total Protein (6.4-8.2) gm/dl Albumin (3.4-5.0) gm/dl Globulin (2.5-4.0) gm/dl Albumin/Globulin Ratio (0.9-2) SARS-CoV-2 Ag (Rapid) Negative (Negative) Blood Type Antibody Screen Administered Medications Discontinued Medications Dexamethasone (Dexamethasone Sod Inj 10 Mg/Ml Vial) 10 mg IV ONCE ONE Stop: 09/04/20 00:25 Last Admin: 09/04/20 00:24 Dose: 10 mg Documented by: [id number] Diphenhydramine HCl (Diphenhydramine 50 Mg/Ml Vial) Confirm Administered Dose 50 mg .ROUTE .STK-MED ONE Stop: 09/04/20 00:23 Last Admin: 09/04/20 00:24 Dose: 50 mg Documented by: [id number] Epinephrine HCl (Epinephrine Inj 1 Mg/Ml Amp) 0.3 mg IM NOW STA Stop: 09/04/20 01:15 Last Admin: 09/04/20 01:19 Dose: 0.3 mg Documented by: [id number] Famotidine (Pepcid 20mg Iv Push) 20 mg in 5 mls @ 2.5 mls/min IV NOW STA Stop: 09/04/20 00:28 Last Admin: 09/04/20 00:36 Dose: 2.5 mls/min Documented by: [id number] Tranexamic Acid (Tranexamic Acid / 0.7% Nacl) 1,000 mg in 100 mls @ 600 mls/hr IV NOW STA Stop: 09/04/20 01:27 Last Infusion: 09/04/20 01:34 Dose: 0 mls/hr Documented by: [id number] Admin: 09/04/20 01:23 Dose: 600 mls/hr Documented by: [id number] Discharge Plan Visit Data Chief Complaint: Throat Pain Stated Complaint: HARD TO BREATHE,CHEST PAIN ED Provider: Mary Renee Discharge Problem: Allergic reaction, Angioedema Forms Stand Alone Forms: [facility] Prescriptions Prescriptions: No Action gabapentin 300 mg capsule 600 mg PO TID RF: 0 esomeprazole magnesium 40 mg capsule,delayed release(DR/EC) 40 mg PO QAM RF: 0 duloxetine 60 mg capsule,delayed release(DR/EC) 60 mg PO DAILY RF: 0 allopurinol 100 mg tablet 100 mg PO DAILY RF: 0 nicotine 21 mg/24 hr patch 24 hour 1 patch transdermal DAILY RF: 0 hydrochlorothiazide 25 mg tablet 25 mg PO DAILY RF: 0 lisinopril 40 mg tablet 40 mg PO DAILY RF: 0 Discharge Problem: Allergic reaction Qualifiers: Encounter type: initial encounter Qualified Code(s): T78.40XA - Allergy, unspecified, initial encounter Angioedema Qualifiers: Encounter type: initial encounter Qualified Code(s): T78.3XXA - Angioneurotic edema, initial encounter
[2020-09-04] MEDS ORDERED: EPINEPHrine INJ 1 MG/ML AMP IM STA (01:14)
[2020-09-04] MEDS ORDERED: SODIUM CHLORIDE 0.9% 250 ML IV PRN (01:15)
[2020-09-04] MEDS ORDERED: TRANEXAMIC ACID / 0.7% NACL 1,000 MG/100 ML BAG IV STA (01:18)
[2020-09-04 02:15] LABS: Basophils # (auto) 0.02 K/uL (0-0.2); Basophils % (auto) 0.2 %; Eosinophils # (auto) 0.14 K/uL (0-0.5); Eosinophils % (auto) 1.3 %; Hematocrit (blood only) 39.5 % (42-52); Hemoglobin 13.4 g/dL (14.0-18.0); Immature Granulocytes # (auto) 0.02 K/uL (0.00-0.02); Immature Granulocytes % (auto) 0.2 %; Lymphocytes # (auto) 2.66 K/uL (1.2-3.4); Mean Corpuscular Hemoglobin 30.7 pg (25-34); Mean Corpuscular Hgb Conc 33.9 g/dL (32-36); Mean Corpuscular Volume 90.4 fL (80-100); Mean Platelet Volume 10.3 fL (7.4-10.4); Monocytes # (auto) 0.62 K/uL (0.11-0.59); Monocytes % (auto) 5.8 %; Neutrophils % (auto) 67.5 %; Platelet Count 267 K/uL (130-400); RDW Coefficient of Variation 12.8 % (11.5-14.5); RDW Standard Deviation 42.2 fL (36.4-46.3); Red Blood Count 4.37 M/uL (4.7-6.1); White Blood Count 10.66 K/uL (4.8-10.8)
[2020-09-04 03:34] LABS: Albumin Level 3.6 gm/dl (3.4-5.0); BUN Creatinine Ratio 14.1 (10-20); Creatinine Clr Calc Pharmacy 49.2 ml/min; Est GFR (Non-African American) 42.3; Magnesium 2.3 mg/dl (1.8-2.4); Potassium 3.5 mmol/L (3.5-5.1)
[2020-09-04 03:36] LABS: Albumin Globulin Ratio 1.1 (0.9-2); Bilirubin,Total 0.4 mg/dl (0.2-1); Globulin 3.4 gm/dl (2.5-4.0)
--- NOTE | 2020-09-04 03:48 | History & Physical Report ---
Date of Service September 04, 2020 Assessment & Plan (1) SOB (shortness of breath): Secondary to retropharyngeal swelling (abscess versus phlegmon on initial CT read) No sepsis for now hypertension, stable ARF on CRI (baseline creatinine 1.3) mood disorder, at baseline chronic back pain, elective surgery contemplated by [facility] Hyperglycemia rule out DM past tobacco abuse Medical telemetry given potential for airway obstruction [facility] ENT evaluation RE retropharyngeal swelling (Case discussed with Dr. Jaimes who agrees with antibiotic Rx. He recommends n.p.o. status for now in anticipation of endoscopic procedure and Solu-Medrol 100 mg BID). Baseline UA, monitor creatinine response to IVF Hold NICOLAS inhibitor and diuretic for now given kidney dysfunction. Initiate amlodipine for maintenance blood pressure medication. Check hemoglobin A1c Basal insulin, ISS BG goal [id number] given anticipated hyperglycemia from high- dose IV steroids DVT prophylaxis. SCDs RE possible ENT procedure Recommend pharmacologic anticoagulation with Heparin 5000 units subcutaneous every 8 hours once bleeding risk is minimal and negligible pending ENT evaluation. Full code Text document was generated using [employer] voice recognition software. It may contain grammatical or spelling errors. Kindly contact undersigned for clarification of any documentation item in question. History of Present Illness Chief Complaint: Sore throat, shortness of breath Primary Care Provider: Kb Herrera DO History obtained from patient, family, and records. Medical history significant for hypertension, CRI (baseline creatinine 1.3), mood disorder, chronic back pain, Garcia's esophagus, past tobacco abuse. Last confinement April 2020 for acute diverticulitis. Last night, patient noted sudden onset odynophagia, sore throat symptoms without fever, and chills. Had some lobster about 3 hours before onset of symptoms. No chest pain. No rash, no pruritus. Some shortness of breath because he felt like his throat was closing. No tooth ache symptoms or denture problems as per patient. Voice change noted. No unusual cough symptoms. May have had a transient episode about 6 months ago. At the ER, patient received Decadron, Benadryl, Famotidine, FFP for possible anaphylaxis/angioedema. Patient currently feeling better. Medical History as above hx PSA elevation, patient following with [facility] Surgical History : None Family History : Hypertension Personal/Social history : Past tobacco abuse, occasional EtOH intake, disabled Allergies Allergy/AdvReac Type Severity Reaction Status Date / Time No Known Allergies Allergy Unverified 09/04/20 00:09 Home Medications Medication Instructions Recorded Confirmed Type allopurinol 100 mg PO DAILY 04/03/20 09/04/20 History hydrochlorothiazide 25 mg PO DAILY 04/03/20 09/04/20 History lisinopril 40 mg PO DAILY 04/03/20 09/04/20 History nicotine 1 patch TRANSDERMAL DAILY 04/03/20 09/04/20 History duloxetine 60 mg PO DAILY 09/04/20 09/04/20 History esomeprazole magnesium 40 mg PO QAM 09/04/20 09/04/20 History gabapentin 600 mg PO TID 09/04/20 09/04/20 History Past Med/Surg History Medical History Depression Elevated prostate specific antigen (PSA) Gout HTN (hypertension) Osteoarthritis Surgical History No significant past surgical history Family History Father Colorectal cancer Social History Smoking Status: Former smoker Tobacco Type: Cigarettes Smoking End Date: quit once week ago; Second Hand Exposure: Yes; Hx Alcohol Use: No Hx Substance Use: No Preferred Language: Icelandic Communication Ability: Effective Brusher Required: No Beliefs That Will Affect Care: None Current Living Situation: Significant Other Current Living Situation Comment: with girlfriend Ada Feels Safe at Home: Yes Safety Concerns: Feels Safe At This Time Assistive Devices: Denture - Upper, Denture - Lower and Glasses Review of Systems Review of Systems: As per HPI, all 10 systems reviewed, all other ROS negative Physical Exam Physical Exam: GENERAL: Comfortable, pleasant, no stridor, no respiratory distress SKIN: Normal color, warm HEENT: Mcclelland palpebral conjunctivae, no ptosis, dry buccal mucosa, minimal pharyngeal congestion NECK : Supple, no tenderness CHEST : CTA, no tenderness HEART : RRR, no obvious murmurs ABDOMEN: Some distention, nontender EXTREMITIES : No LE swelling/tenderness, no other conspicuous deformities noted NEUROLOGIC : Coherent, no facial asymmetry, no other gross focality Results & Data Results & Data ([facility]) Vital Signs (Past 12 Hours) Vital Signs Temp Pulse Resp BP Pulse Ox 09/04/20 03:00 83 11 L 130/76 97 09/04/20 02:30 81 11 L 119/65 95 09/04/20 02:00 78 12 126/73 98 09/04/20 01:30 76 19 110/74 97 09/04/20 01:16 125/80 99 09/04/20 01:00 78 16 123/86 98 09/04/20 00:34 78 13 113/79 98 09/04/20 00:05 36.2 C L 88 24 125/82 99 Laboratory Results Laboratory Results WBC 10.66 K/uL (4.8-10.8) 09/04/20 02:06 RBC 4.37 M/uL (4.7-6.1) L 09/04/20 02:06 Hgb 13.4 g/dL (14.0-18.0) L 09/04/20 02:06 Hct 39.5 % (42-52) L 09/04/20 02:06 MCV 90.4 fL (80-100) 09/04/20 02:06 MCH 30.7 pg (25-34) 09/04/20 02:06 MCHC 33.9 g/dL (32-36) 09/04/20 02:06 RDW Std Deviation 42.2 fL (36.4-46.3) 09/04/20 02:06 RDW Coeff of Tavares 12.8 % (11.5-14.5) 09/04/20 02:06 Plt Count 267 K/uL (130-400) 09/04/20 02:06 MPV 10.3 fL (7.4-10.4) 09/04/20 02:06 Immature Gran % (Auto) 0.2 % 09/04/20 02:06 Neut % (Auto) 67.5 % 09/04/20 02:06 Lymph % (Auto) 25.0 % 09/04/20 02:06 [place] % (Auto) 5.8 % 09/04/20 02:06 Eos % (Auto) 1.3 % 09/04/20 02:06 Baso % (Auto) 0.2 % 09/04/20 02:06 Neut # (Auto) 7.20 K/uL (1.4-6.5) H 09/04/20 02:06 Lymph # (Auto) 2.66 K/uL (1.2-3.4) 09/04/20 02:06 [place] # (Auto) 0.62 K/uL (0.11-0.59) H 09/04/20 02:06 Eos # (Auto) 0.14 K/uL (0-0.5) 09/04/20 02:06 Baso # (Auto) 0.02 K/uL (0-0.2) 09/04/20 02:06 Immature Gran # (Auto) 0.02 K/uL (0.00-0.02) 09/04/20 02:06 Sodium 136 mmol/L (136-145) 09/04/20 02:07 Potassium 3.5 mmol/L (3.5-5.1) 09/04/20 02:07 Chloride 103 mmol/L (98-107) 09/04/20 02:07 Carbon Dioxide 26 mmol/L (21-32) 09/04/20 02:07 Anion Gap 7.0 (3-11) 09/04/20 02:07 BUN 24 mg/dl (7-18) H 09/04/20 02:07 Creatinine 1.70 mg/dl (0.6-1.4) H 09/04/20 02:07 Est Cr Clr Drug Dosing 49.2 ml/min 09/04/20 02:07 Est GFR ( Amer) 49.0 09/04/20 02:07 Est GFR (Non-Af Amer) 42.3 09/04/20 02:07 BUN/Creatinine Ratio 14.1 (10-20) 09/04/20 02:07 Glucose 133 mg/dl (70-99) H 09/04/20 02:07 Calcium 9.0 mg/dl (8.5-10.1) 09/04/20 02:07 Magnesium 2.3 mg/dl (1.8-2.4) 09/04/20 02:07 Total Bilirubin 0.4 mg/dl (0.2-1) 09/04/20 02:07 AST 13 U/L (15-37) L 09/04/20 02:07 ALT 16 U/L (12-78) 09/04/20 02:07 Alkaline Phosphatase 79 U/L (45-117) 09/04/20 02:07 Total Protein 7.0 gm/dl (6.4-8.2) 09/04/20 02:07 Albumin 3.6 gm/dl (3.4-5.0) 09/04/20 02:07 Globulin 3.4 gm/dl (2.5-4.0) 09/04/20 02:07 Albumin/Globulin Ratio 1.1 (0.9-2) 09/04/20 02:07 SARS-CoV-2 Ag (Rapid) Negative (Negative) 09/04/20 03:19 Blood Type A Positive 09/04/20 01:35 Antibody Screen NEGATIVE 09/04/20 01:[address] neck initial read: Chronic appearing right cerebellar infarcts. Soft tissue thickening hypopharynx left greater than the right. Diffuse retropharyngeal soft tissue thickening with subtle low-attenuation extending from C2-C6 measuring up to 1 cm in thickness suspicious for retropharyngeal phlegmon/abscess. Mildly thickened epiglottitis. Unable to exclude appendicitis in appropriate clinical setting. Close glottis which could be related to breath-hold. No enlarged cervical lymph nodes. Chest x-ray as per my interpretation no congestion, no infiltrate EKG as per my interpretation : Rate 75, NSR, normal axis, 1 AVB no ischemia
[2020-09-04] MEDS ORDERED: AMPICILLIN/SULBACTAM SOD 3,000 MG in 0.9 % SODIUM CHLORIDE 100 ML IV STA (04:34)
[2020-09-04] MEDS ORDERED: AMPICILLIN/SULBACTAM CONSULT ACTIVE PRN (05:25)
[2020-09-04] MEDS ORDERED: POTASSIUM CHLORIDE 40 MEQ in SODIUM CHLORIDE 0.9% 1000ML 1,000 ML IV SCH (06:06)
[2020-09-04] MEDS ORDERED: ACETAMINOPHEN 325 MG TAB PO PRN (06:06)
[2020-09-04] MEDS ORDERED: INSULIN GLARGINE SOLOSTAR 100 UNITS/ML 3 ML PEN SC STA (06:06)
[2020-09-04] MEDS ORDERED: GLUCAGON FOR INJ 1 MG VIAL SQ PRN (06:06)
[2020-09-04] MEDS ORDERED: PROMETHAZINE HCL 12.5 MG in SODIUM CHLORIDE 0.9% 50 ML IV PRN (06:06)
[2020-09-04] MEDS ORDERED: traMADol HCL 50 MG TABLET PO PRN (06:06)
[2020-09-04] MEDS ORDERED: GLUCOSE 40% GEL 15 GM TUBE PO PRN (06:06)
[2020-09-04] MEDS ORDERED: DEXTROSE 50% 50 ML SYRINGE IV PRN (06:06)
[2020-09-04] MEDS ORDERED: GLUCOSE 10 TABS/TUBE PO PRN (06:06)
[2020-09-04] MEDS ORDERED: INSULIN ASPART 100 UNITS/ML 3 ML PEN SC SCH ×2 (06:06→11:30)
[2020-09-04] MEDS ORDERED: CARBOHYDRATES FOR HYPOGLYCEMIA PO PRN (06:06)
[2020-09-04] MEDS: AMPICILLIN/SULBACTAM SOD 3,000 MG in 0.9 % SODIUM CHLORIDE 100 ML IV SCH ×3 (06:55→11:52)
--- NOTE | 2020-09-04 07:28 | XRay Report ---
XR chest 1V portable HISTORY: 60 years-old Male sob acute shortness of breath COMPARISON: CT soft tissue neck of same day, chest radiographs 04/03/2020 TECHNIQUE: Portable AP view of the chest FINDINGS: Cardiomediastinal and hilar silhouettes are within normal limits. There is no pneumothorax, pleural e ffusion, airspace consolidation or overt pulmonary edema. Degenerative changes of the shoulders and s pine. IMPRESSION: No acute process. ACT 112: Negative or not required by law. The above report was generated using voice recognition software. It may contain grammatical, syntax o r spelling errors. Electronically signed by: Дмитрий Floyd M.D. 09/04/2020 7:27 AM
--- NOTE | 2020-09-04 07:47 | Electrocardiogram Report ---
Test Reason : Blood Pressure : / mmHG Vent. Rate : 077 BPM Atrial Rate : 077 BPM P-R Int : 202 ms QRS Dur : 090 ms QT Int : 394 ms P-R-T Axes : 032 -09 022 degrees QTc Int : 445 ms Normal sinus rhythm with 1st degree AV block Normal ECG When compared with ECG of 03-APR-2020 07:26, ID is slightly longer Confirmed by Mani Alcala ([id number]) on 09/04/2020 7:46:56 AM Referred By: REFERRED SELF Confirmed By:Tyson Alcala
[2020-09-04] MEDS: GABAPENTIN 300 MG CAP PO SCH ×2 (08:30→13:47)
--- NOTE | 2020-09-04 08:38 | ENT Consultation ---
Date of Consultation September 04, 2020 Assessment & Plan (1) Angioedema: All the findings and CT scan was consistent with angioedema. His uvular swelling has subsided. His voice has improved. He is able to swallow. There is no sign of retropharyngeal abscess. He should respond well to Solu-Medrol. At this point I do not feel laryngoscopy is indicated and that he is greatly improved. No surgical intervention contemplated at this time. (2) Allergic reaction: (3) SOB (shortness of breath): History of Present Illness Reason for Consultation: Angioedema Attending Physician: Rob Tripp MD History of Present Illness This 60-year-old gentleman had acute onset of throat swelling after his dinner which included lobster at 8 PM. He presented to the emergency room and was treated by Dr. Renee. I was called to 1:40 AM because of increasing swelling however she stated that the patient was finally improving after injection of epinephrine. I was called again at [address] Tripp when he admitted the patient and saw the CT scan showing possible retropharyngeal abscess. He was still improving at that time therefore came in at 6 AM and saw the patient. At that time he feels that his throat is much less swollen, he was able to talk were last night he was unable to talk, and he was able to swallow liquids whereas last evening he was unable to swallow. I reviewed the CT scan which did indeed show uvular edema and epiglottic edema and left arytenoid edema however the glottis looked open on the CT scan. Allergies Allergy/AdvReac Type Severity Reaction Status Date / Time No Known Allergies Allergy Unverified 09/04/20 00:09 Home Medications Medication Instructions Recorded Confirmed Type allopurinol 100 mg PO DAILY 04/03/20 09/04/20 History hydrochlorothiazide 25 mg PO DAILY 04/03/20 09/04/20 History lisinopril 40 mg PO DAILY 04/03/20 09/04/20 History nicotine 1 patch TRANSDERMAL DAILY 04/03/20 09/04/20 History duloxetine 60 mg PO DAILY 09/04/20 09/04/20 History esomeprazole magnesium 40 mg PO QAM 09/04/20 09/04/20 History gabapentin 600 mg PO TID 09/04/20 09/04/20 History Patient History Medical History Depression Elevated prostate specific antigen (PSA) Gout HTN (hypertension) Osteoarthritis Surgical History No significant past surgical history Family History Father Colorectal cancer Social History Smoking Status: Former smoker Tobacco Type: Cigarettes Smoking End Date: quit once week ago; Second Hand Exposure: Yes; Hx Alcohol Use: No Hx Substance Use: No Preferred Language: Mauritian Communication Ability: Effective Component Overhaul Operator Required: No Beliefs That Will Affect Care: None Current Living Situation: Significant Other Current Living Situation Comment: with girlfriend Ada Feels Safe at Home: Yes Safety Concerns: Feels Safe At This Time Assistive Devices: Denture - Upper, Denture - Lower and Glasses Physical Exam Constitutional: WD/WN, vitals as above well developed and + acute distress (His voice was good and you was able to swallow, much improved from last courtney) Eyes: PERRL, conjunctivae normal, anicteric sclerae ENMT: Ears: + TM abnormality (TMs normal with slight cerumen) Nose: + turbinate abnormality (Slight swelling of the nasal turbinates) Mouth: + oropharynx abnormality (Uvula is swollen to small finger size, was thumb sized earlier in the eveni) Neck: trachea midline, no thyromegaly Respiratory: normal respiratory effort and able to speak in complete sentences Cardiovascular: RRR, no murmur, no edema Results & Data ([facility]) Vital Signs (Past 12 Hours) Vital Signs Temp Pulse Pulse Resp BP BP Pulse Ox 09/04/20 06:51 36.7 C 85 15 125/74 98 09/04/20 06:17 36.8 C 84 20 132/78 98 09/04/20 05:39 81 18 134/78 99 09/04/20 05:24 81 18 116/74 97 09/04/20 05:15 116/74 97 09/04/20 05:03 36.8 C 77 18 119/72 98 09/04/20 05:02 119/72 99 09/04/20 04:30 18 111/60 96 09/04/20 04:00 76 18 119/75 96 09/04/20 03:30 83 18 133/81 98 09/04/20 03:00 83 11 L 130/76 97 09/04/20 02:30 81 11 L 119/65 95 09/04/20 02:00 78 12 126/73 98 09/04/20 01:30 76 19 110/74 97 09/04/20 01:16 125/80 99 09/04/20 01:00 78 16 123/86 98 09/04/20 00:34 78 13 113/79 98 09/04/20 00:05 36.2 C L 88 24 125/82 99 (1) Angioedema Encounter type: initial encounter Qualified Code(s): T78.3XXA - Angioneurotic edema, initial encounter (2) Allergic reaction Encounter type: initial encounter Qualified Code(s): T78.40XA - Allergy, unspecified, initial encounter
[2020-09-04 08:46] LABS: Estimated Average Glucose 126 mg/dl
--- NOTE | 2020-09-04 08:50 | CT Scan Report ---
CT SCAN OF THE NECK WITHOUT IV CONTRAST CLINICAL HISTORY: Sore throat. COMPARISON STUDY: No priors. TECHNIQUE: Unenhanced CT scan of the soft tissues of the neck was performed from the skull base to th e upper chest. Images are reviewed in the axial, sagittal, and coronal planes. IV contrast was not a dministered as per the referring clinician. Note that the examination was performed in significantly suboptimal fashion without IV contrast. A dose lowering technique was utilized adhering to the princ iplbernard of JOSE L. CT DOSE: 803.97 mGy.cm FINDINGS: Pharynx: There is marked soft tissue edema and inflammation seen involving the pharyngeal soft tissue s. This causes mild narrowing of the airway. The epiglottis is thickened. There is mild infiltration of the parapharyngeal fat. There is also retropharyngeal edema. No organized fluid collection is seen on this unenhanced examination. There is no evidence of mass lesion. The vocal cords are symmetric. The patient is edentulous. Lymphadenopathy: No cervical lymphadenopathy is seen. There is atherosclerotic calcification of the c arotid bulbs. Thyroid: Normal in size and attenuation. Salivary glands: The parotid and submandibular glands are within normal limits. Brain parenchyma: Chronic lacunar infarcts are noted in the right cerebellum. The visualized brain pa renchyma is otherwise normal in appearance. Skeletal structures: Imaged portions of the calvarium at the skull base are within normal limits. The cervical spine appears intact noting multilevel spondylosis. No lytic or blastic lesion is seen. Orbits: The bony orbits are intact. Orbital contents are normal as visualized. Sinuses and mastoids: Trace mucosal thickening is seen in the left maxillary antrum. The paranasal si nuses are otherwise clear. The mastoid air cells are well pneumatized. Lung apices: Visualized apical lung parenchyma is clear. IMPRESSION: 1. There is diffuse soft tissue thickening and edema seen throughout the pharyngeal soft tissues cons istent with a nonspecific pharyngitis. 2. There is mild infiltration of the parapharyngeal fat bilaterally, as well as significant retrophar yngeal soft tissue thickening and edema. Retropharyngeal phlegmonous change is not excluded. 3. No organized fluid collection is clearly identified on this unenhanced examination. If there is cl inical concern for retropharyngeal abscess then a contrast enhanced study should be obtained. 4. There is also thickening of the epiglottis. Epiglottitis is not excluded in the appropriate clinic al setting. 5. Inflammation/edema causes mild narrowing of the pharyngeal airway. 6. No cervical lymphadenopathy is identified. ACT 112: Negative or not required by law. Electronically signed by: Hakeem Miller M.D. 09/04/2020 8:48 AM
[2020-09-04] MEDS ORDERED: FAMOTIDINE 20 MG TAB PO SCH (09:00)
[2020-09-04] MEDS ORDERED: amLODIPine BESYLATE 5 MG TAB PO SCH (09:00)
[2020-09-04] MEDS ORDERED: allopurinoL 100 MG TAB PO SCH (09:00)
[2020-09-04] MEDS ORDERED: PANTOprazole 40 MG TAB PO SCH (09:00)
[2020-09-04] MEDS ORDERED: CETIRIZINE HCL 10 MG TABLET PO SCH (09:00)
[2020-09-04] MEDS ORDERED: DULoxetine HCL 60 MG CAP PO SCH (09:00)
[2020-09-04] MEDS ORDERED: methylPREDNISolone 100 MG in SYRINGE 0 ML IV SCH (09:00)
[2020-09-04] MEDS ORDERED: NICOTINE 21 MG/24 HR TDSY TD SCH (09:00)
[2020-09-04 10:05] LABS: Appearance Urine Clear (Clear); Bilirubin Urine Negative (Negative); Blood Urine Negative (Negative); Color Urine Yellow; Glucose Urine UA Negative (Negative); Ketones Urine Trace (Negative); Leukocyte Esterase Urine Negative (Negative); Nitrite Urine Negative (Negative); Protein Urine Negative (Negative); Specific Gravity Urine 1.022 (1.000-1.030); Urobilinogen Urine Negative (Negative)
[2020-09-04] MEDS ORDERED: Nursing to Pharmacy Communication SCH (11:45)
--- NOTE | 2020-09-04 13:00 | Hospitalist Progress Note ---
Date of Service September 04, 2020 Assessment & Plan (1) Allergic reaction: (2) Angioedema: Sore throat, shortness of breath likely secondary to angioedema, possible anaphylactic reaction Likely secondary to lobster allergy versus lisinopril allergic reaction --Soft tissue neck: 1. There is diffuse soft tissue thickening and edema seen throughout the pharyngeal soft tissues consistent with a nonspecific pharyngitis. 2. There is mild infiltration of the parapharyngeal fat bilaterally, as well as significant retropharyngeal soft tissue thickening and edema. Retropharyngeal phlegmonous change is not excluded. 3. No organized fluid collection is clearly identified on this unenhanced exami nation. If there is clinical concern for retropharyngeal abscess then a contrast enhanced study should be obtained. 4. There is also thickening of the epiglottis. Epiglottitis is not excluded in the appropriate clinical setting. 5. Inflammation/edema causes mild narrowing of the pharyngeal airway. 6. No cervical lymphadenopathy is identified. --ENT Dr. Jaimes consulted, retropharyngeal abscess unlikely, does not recommend antibiotics at this time Recommend Medrol Dosepak, antihistamines --Patient back to baseline according to him --Discharge plan: Medrol Dosepak Zyrtec 20 mg daily Famotidine 20 mg twice daily Benadryl as needed Epinephrine as needed Refer to manager rental for serologic testing --Discussed in detail and at length with patient Advised not to consume shellfish or seafood at this Advised to stop lisinopril Educated on signs and symptoms of allergy, anaphylactic reaction, use of EpiPen, steps to take during an emergency Verbalized understanding, agreement Mild creatinine elevation --Baseline 1.3, 1.7 on discharge day --Advised to discontinue lisinopril and HCTZ No NSAIDs --Repeat basic metabolic profile on follow-up with PCP next Hypertension --Lisinopril discontinued in light of possible angioedema HCTZ discontinued in light of creatinine elevation --Start amlodipine 5 mg p.o. daily Follow-up with PCP next week Prediabetes --Hemoglobin A1c 6.0 --Follow-up as outpatient Chronic right cerebellar infarcts --No known history of CVA in the past --Start aspirin 81 mg p.o. daily Further evaluation, management, follow-up as an outpatient Disposition Discharge to home Follow-up with PCP in 1 week Refer to allergy clinic Admission and Anticipated Discharge Date Admission Date: September 04, 2020 Subjective Follow-up for angioedema, possible anaphylactic reaction, etc. Seen sitting up in bed, comfortable, not in distress, in good spirits, oriented x3 He feels much better overall No shortness of breath, sore throat; voice is back to normal Denies headache, dizziness, chest pain, abdominal pain, nausea vomiting No problems with swallowing Ambulating with no problems States that he feels like he is back to his baseline level States he is ready and would like to be discharged today Review of Systems Review of Systems: All systems reviewed & are unremarkable except as noted in Subjective Physical Exam Physical Exam: General- oriented x 3, not in distress, speaks in sentences with no effort or accessory muscle use Head- atraumatic Eyes- PERRL, EOMI, anicteric ENT- oropharynx clear Neck- supple, no JVD, no adenopathy, no thyromegaly; carotids +2/2, no bruits appreciated Lungs- clear to auscultation bilaterally, no rales/wheezes Heart- normal rate, regular rhythm; no murmur, no gallop, no rub appreciated Abdomen- normal bowel sounds, nondistended, soft, nontender, no masses or hepatosplenomegaly Extremities- no pretibial edema, no calf tenderness; peripheral pulses intact Neuro- alert, oriented x 3; CN 2-12 grossly intact; motor 5/5 bilaterally;sensation 100% on all extremities; no other gross focal neurologic deficits Skin- warm & dry Results & Data Results & Data ([facility]) Vital Signs (Past 12 Hours) Vital Signs Temp Pulse Pulse Resp BP BP Pulse Ox 09/04/20 11:29 36.4 C L 96 H 20 165/103 H 97 09/04/20 09:54 86 09/04/20 06:51 36.7 C 85 15 125/74 98 09/04/20 06:17 36.8 C 84 20 132/78 98 09/04/20 05:39 81 18 134/78 99 09/04/20 05:24 81 18 116/74 97 09/04/20 05:15 116/74 97 09/04/20 05:03 36.8 C 77 18 119/72 98 09/04/20 05:02 119/72 99 09/04/20 04:30 18 111/60 96 09/04/20 04:00 76 18 119/75 96 09/04/20 03:30 83 18 133/81 98 09/04/20 03:00 83 11 L 130/76 97 09/04/20 02:30 81 11 L 119/65 95 09/04/20 02:00 78 12 126/73 98 09/04/20 01:30 76 19 110/74 97 09/04/20 01:16 125/80 99 09/04/20 01:00 78 16 123/86 98 Laboratory Results Laboratory Results - last 24 hr 09/04/20 09/04/20 09/04/20 01:35 02:06 02:07 WBC 10.66 RBC 4.37 L Hgb 13.4 L Hct 39.5 L MCV 90.4 MCH 30.7 MCHC 33.9 RDW Std Deviation 42.2 RDW Coeff of Tavares 12.8 Plt Count 267 MPV 10.3 Immature Gran % (Auto) 0.2 Neut % (Auto) 67.5 Lymph % (Auto) 25.0 Fisher % (Auto) 5.8 Eos % (Auto) 1.3 Baso % (Auto) 0.2 Neut # (Auto) 7.20 H Lymph # (Auto) 2.66 Fisher # (Auto) 0.62 H Eos # (Auto) 0.14 Baso # (Auto) 0.02 Immature Gran # (Auto) 0.02 Sodium 136 Potassium 3.5 Chloride 103 Carbon Dioxide 26 Anion Gap 7.0 BUN 24 H Creatinine 1.70 H Est Cr Clr Drug Dosing 49.2 Est GFR ( Amer) 49.0 Est GFR (Non-Af Amer) 42.3 BUN/Creatinine Ratio 14.1 Glucose 133 H POC Glucose Estimat Average Glucose Hemoglobin A1c Calcium 9.0 Magnesium 2.3 Total Bilirubin 0.4 AST 13 L ALT 16 Alkaline Phosphatase 79 Total Protein 7.0 Albumin 3.6 Globulin 3.4 Albumin/Globulin Ratio 1.1 Urine Color Urine Appearance Urine pH Ur Specific Bonnie Urine Protein Urine Glucose (UA) Urine Ketones Urine Blood Urine Nitrite Urine Bilirubin Urine Urobilinogen Ur Leukocyte Esterase Hepatitis C Ab Screen SARS-CoV-2 Ag (Rapid) Blood Type A Positive Antibody Screen NEGATIVE 09/04/20 09/04/20 09/04/20 03:19 07:08 07:16 WBC RBC Hgb Hct MCV MCH MCHC RDW Std Deviation RDW Coeff of Tavares Plt Count MPV Immature Gran % (Auto) Neut % (Auto) Lymph % (Auto) Fisher % (Auto) Eos % (Auto) Baso % (Auto) Neut # (Auto) Lymph # (Auto) Fisher # (Auto) Eos # (Auto) Baso # (Auto) Immature Gran # (Auto) Sodium Potassium Chloride Carbon Dioxide Anion Gap BUN Creatinine Est Cr Clr Drug Dosing Est GFR ( Amer) Est GFR (Non-Af Amer) BUN/Creatinine Ratio Glucose POC Glucose 163 H Estimat Average Glucose 126 Hemoglobin A1c 6.0 H Calcium Magnesium Total Bilirubin AST ALT Alkaline Phosphatase Total Protein Albumin Globulin Albumin/Globulin Ratio Urine Color Urine Appearance Urine pH Ur Specific Bonnie Urine Protein Urine Glucose (UA) Urine Ketones Urine Blood Urine Nitrite Urine Bilirubin Urine Urobilinogen Ur Leukocyte Esterase Hepatitis C Ab Screen SARS-CoV-2 Ag (Rapid) Negative Blood Type Antibody Screen 09/04/20 09/04/20 09/04/20 07:16 09:40 11:38 WBC RBC Hgb Hct MCV MCH MCHC RDW Std Deviation RDW Coeff of Tavares Plt Count MPV Immature Gran % (Auto) Neut % (Auto) Lymph % (Auto) Fisher % (Auto) Eos % (Auto) Baso % (Auto) Neut # (Auto) Lymph # (Auto) Fisher # (Auto) Eos # (Auto) Baso # (Auto) Immature Gran # (Auto) Sodium Potassium Chloride Carbon Dioxide Anion Gap BUN Creatinine Est Cr Clr Drug Dosing Est GFR ( Amer) Est GFR (Non-Af Amer) BUN/Creatinine Ratio Glucose POC Glucose 147 H Estimat Average Glucose Hemoglobin A1c Calcium Magnesium Total Bilirubin AST ALT Alkaline Phosphatase Total Protein Albumin Globulin Albumin/Globulin Ratio Urine Color Yellow Urine Appearance Clear Urine pH 7.0 Ur Specific Bonnie 1.022 Urine Protein Negative Urine Glucose (UA) Negative Urine Ketones Trace H Urine Blood Negative Urine Nitrite Negative Urine Bilirubin Negative Urine Urobilinogen Negative Ur Leukocyte Esterase Negative Hepatitis C Ab Screen Neg SARS-CoV-2 Ag (Rapid) Blood Type Antibody Screen (1) Allergic reaction Encounter type: initial encounter Qualified Code(s): T78.40XA - Allergy, unspecified, initial encounter (2) Angioedema Encounter type: initial encounter Qualified Code(s): T78.3XXA - Angioneurotic edema, initial encounter
[2020-09-05] MEDS ORDERED: INSULIN GLARGINE SOLOSTAR 100 UNITS/ML 3 ML PEN SC SCH (09:00)
== END 2020-09-04 14:51 | disposition home or self-care (01) ==
LOC: ED 00:02 → 2W 00:02 → OBSVTOIN 04:34 → INTOOBSV 04:34 → 2W 05:45

== ENCOUNTER 2021-03-02 06:13 | Inpatient (IN) ==
--- NOTE | 2021-01-27 09:23 | Anesthesiology Consultation ---
Date of Service January 27, 2021 Assessment & Plan (1) Encounter for pre-operative examination: COVID screening: Per assessment on 01/26: Travel screen negative, no known COVID- 19 positive contacts or current COVID-19 related symptoms. Surgeon arranging preop COVID testing. Awaiting results. Chart Review Chart Review: Acceptable Risk for Surgery and Patient NOT seen in Pre Admission Testing History Surgery Operation Date: 03/02/21 10:35 Proposed Procedures p Spine L3-S1 Decompression Fusion,; Spinal Cord Monitoring - Leo Raman DO Height/Weight Height: 5 ft 9 in Weight: 88.451 kg Allergies Allergy/AdvReac Type Severity Reaction Status Date / Time lisinopril Allergy Severe Swelling Verified 12/22/20 14:14 of Lip/Tongue/Throat Medications Home Medications Medication Instructions Recorded Confirmed Last Taken allopurinol 100 mg PO QAM 04/03/20 01/26/21 Unknown nicotine 1 patch TRANSDERMAL QAM 04/03/20 01/26/21 Unknown cetirizine 10 mg PO QAM #30 tab 09/04/20 01/26/21 Unknown diphenhydramine HCl 25 mg PO Q6H PRN #20 cap 09/04/20 01/26/21 Unknown duloxetine 60 mg PO QAM 09/04/20 01/26/21 Unknown epinephrine [EpiPen 2-Max] 0.3 mg IM UD PRN #2 ea 09/04/20 01/26/21 Unknown esomeprazole magnesium 40 mg PO QAM 09/04/20 01/26/21 Unknown famotidine 20 mg PO BID #60 tab 09/04/20 01/26/21 Unknown gabapentin 600 mg PO TID 09/04/20 01/26/21 Unknown sulfamethoxazole 800 1 tab PO Q12H #6 tab 10/13/20 01/26/21 Unknown mg-trimethoprim 160 mg tablet amlodipine 10 mg PO QAM 12/22/20 01/26/21 Unknown aspirin [Ecotrin Low Strength] 81 mg PO QDD 12/22/20 01/26/21 Unknown atorvastatin 10 mg PO QAM 12/22/20 01/26/21 Unknown Past Medical History Medical History Degenerative disc disease Depression Diverticular disease Elevated prostate specific antigen (PSA) GERD (gastroesophageal reflux disease) Gout Hiatal hernia HTN (hypertension) Hyperlipidemia Osteoarthritis Transient ischemic attack (TIA) remote hx > unknown to pt time of event, no further issue, was found on ct scan a few yrs ago Past Family History Family History Father Colorectal cancer Past Surgical History Surgical History History of colonoscopy History of esophagogastroduodenoscopy (EGD) History of tonsillectomy History of tooth extraction Hx of prostate biopsy benign Social History Smoking Status: Current every day smoker tobacco type: cigarettes Smoking cigarettes per day: 10 cig a day Do You Dip or Chew Tobacco: No Hx Alcohol Use: No Hx Substance Use: Yes substance use type: marijuana Substance Use Type Other:: HS (for sleep) Lab Results Anesthesia Preop Results Results Anesthesia Widget: WBC 6.00 K/uL (4.8-10.8) 01/12/21 Hgb 15.3 g/dL (14.0-18.0) 01/12/21 Hct 42.8 % (42-52) 01/12/21 Plt 262 K/uL (130-400) 01/12/21 Na 138 mmol/L (136-145) 01/12/21 K 4.0 mmol/L (3.5-5.1) 01/12/21 Cl 105 mmol/L (98-107) 01/12/21 CO2 30 mmol/L (21-32) 01/12/21 BUN 12 mg/dl (7-18) 01/12/21 Creat 1.08 mg/dl (0.6-1.4) 01/12/21 Glucose Level 108 mg/dl (70-99) H 01/12/21 PT 9.7 Seconds (9.0-12.0) 01/12/21 PTT 23.2 Seconds (21.0-31.0) 01/12/21 INR 1.0 (0.9-1.1) 01/12/21 Urine Ketones Negative (Negative) 01/12/21 Urine Blood Trace (Negative) H 01/12/21 Urine Nitrite Negative (Negative) 01/12/21 Urine Bilirubin Negative (Negative) 01/12/21 Urine Urobilinogen Negative (Negative) 01/12/21 Urine Leukocyte Esterase Negative (Negative) 01/12/21 Urine WBC (Auto) 1-5 /hpf (0-5) 01/12/21 Urine RBC (Auto) 0-4 /hpf (0-4) 01/12/21 Urine Hyaline Casts (Auto) 0 /lpf (0-5) 01/12/21 Urine Epithelial Cells (Auto) 0-5 /lpf (0-5) 01/12/21 Urine Bacteria (Auto) Negative (Negative) 01/12/21 Blood Type A Positive 01/12/21 Antibody Screen NEGATIVE 01/12/21 Testing Electrocardiogram Date: 09/04/20 Findings: + NSR @ (77bpm) With first-degree AV block. Chest X-Ray Date: 09/04/20 Findings: + NAD
[~2021-03-02 06:13] MED LIST: ACETAMINOPHEN 500 MG TAB PO SCH; CeleBREX 200 MG CAP PO SCH; GABAPENTIN 600 MG DOSE PO SCH; LR 15ML/HR IV SCH; ceFAZolin 2000MG 2,000 MG/15 ML SYR IV SCH
[2021-03-02] MEDS ORDERED: MIDAZOLAM HCL 1 MG/ML 2ML VIAL ONE (06:38)
[2021-03-02] MEDS ORDERED: fentaNYL citrate 100 MCG/2 ML VIAL ONE ×2 (06:38→08:21)
[2021-03-02] MEDS ORDERED: ROCURONIUM BROMIDE 10 MG/ML 5 ML VIAL IV ONE (06:38)
[2021-03-02] MEDS ORDERED: ONDANSETRON INJ 2 MG/ML 2 ML VIAL ONE (06:38)
[2021-03-02] MEDS ORDERED: PROPOFOL IV EMULSION 10 MG/ML 20 ML VIAL IV ONE (06:38)
[2021-03-02] MEDS ORDERED: LIDOCAINE 2% 2 ML VIAL/AMP(20MG/ML) INFIL ONE (06:38)
[2021-03-02] MEDS ORDERED: BUPIVACAINE/EPINEPHRINE 0.5% MPF 1:200,000 30 ML VIAL ONE (07:05)
--- NOTE | 2021-03-02 07:32 | History & Physical Bridge Note ---
Date of Service March 02, 2021 History & Physical Bridge Note I have examined the patient, reviewed the History & Physical and in the interval since the performance of the History & Physical I have noted the following changes of clinical significance: no changes noted
--- NOTE | 2021-03-02 07:33 | History & Physical Report ---
Date of Service March 02, 2021 Assessment & Plan (1) Neurogenic claudication due to lumbar spinal stenosis: Admission and Anticipated Discharge Date Admission Date: L3-S1 lumbar decompression and fusion History of Present Illness Chief Complaint: Back and leg pain Primary Care Provider: Kb Herrera DO This is a 60-year-old male presents with chronic persistent back and bilateral leg pain. Failing course of nonoperative care is here for surgical invention. Allergies Allergy/AdvReac Type Severity Reaction Status Date / Time lisinopril Allergy Severe Swelling Verified 03/02/21 06:39 of Lip/Tongue/Throat Home Medications Medication Instructions Recorded Confirmed Type allopurinol 100 mg PO QAM 04/03/20 03/02/21 History nicotine 1 patch TRANSDERMAL QAM 04/03/20 03/02/21 History cetirizine 10 mg PO QAM #30 tab 09/04/20 03/02/21 Rx diphenhydramine HCl 25 mg PO Q6H PRN #20 cap 09/04/20 03/02/21 Rx duloxetine 60 mg PO QAM 09/04/20 03/02/21 History epinephrine [EpiPen 2-Max] 0.3 mg IM UD PRN #2 ea 09/04/20 03/02/21 Rx esomeprazole magnesium 40 mg PO QAM 09/04/20 03/02/21 History famotidine 20 mg PO BID #60 tab 09/04/20 03/02/21 Rx gabapentin 600 mg PO TID 09/04/20 03/02/21 History amlodipine 10 mg PO QAM 12/22/20 03/02/21 History aspirin [Ecotrin Low Strength] 81 mg PO QDD 12/22/20 03/02/21 History atorvastatin 10 mg PO QAM 12/22/20 03/02/21 History Past Med/Surg History Medical History Degenerative disc disease Depression Diverticular disease Elevated prostate specific antigen (PSA) GERD (gastroesophageal reflux disease) Gout Hiatal hernia HTN (hypertension) Hyperlipidemia Osteoarthritis Transient ischemic attack (TIA) remote hx > unknown to pt time of event, no further issue, was found on ct scan a few yrs ago Surgical History History of colonoscopy History of esophagogastroduodenoscopy (EGD) History of tonsillectomy History of tooth extraction Hx of prostate biopsy benign Family History Father Colorectal cancer Social History Smoking Status: Current every day smoker Tobacco Type: Cigarettes Cigarettes Per Day: 10 cig a day; Second Hand Exposure: Yes; Do You Dip or Chew Tobacco: No; Tobacco Cessation Education Requested by Patient: No Hx Alcohol Use: No Hx Substance Use: Yes Substance Use Type Other:: HS (for sleep) Preferred Language: [place] Communication Ability: Effective Branch Banker Required: No Beliefs That Will Affect Care: None Current Living Situation: Spouse Current Living Situation Comment: with girlfriend Ada Other Information That Helps Us Care for You: No Feels Safe at Home: Yes Safety Concerns: Feels Safe At This Time Assistive Devices: Denture - Upper, Denture - Lower and Glasses Physical Exam Physical Exam: Patient is alert and oriented Heart regular in rhythm Lungs clear to auscultation Results & Data ([facility]) Vital Signs (Past 12 Hours) Vital Signs Temp Pulse Resp BP Pulse Ox 03/02/21 07:04 36.7 C 66 20 162/93 H 99
[2021-03-02] MEDS ORDERED: SUCCINYLCHOLINE 100MG/5ML SYR IV ONE (08:23)
[2021-03-02] MEDS ORDERED: DEXAMETHASONE SOD INJ 4 MG/ML VIAL ONE (08:33)
[2021-03-02] MEDS ORDERED: FLUMAZENIL 0.1 MG/1 ML 10 ML VIAL IV PRN (09:04)
[2021-03-02] MEDS ORDERED: PROMETHAZINE HCL 12.5 MG in SODIUM CHLORIDE 0.9% 50 ML IV PRN ×2 (09:04→12:30)
[2021-03-02] MEDS ORDERED: NALOXONE HCL 0.4 MG/1 ML VIAL/CARP IV PRN ×2 (09:04→12:30)
[2021-03-02] MEDS ORDERED: ATROPINE SULFATE 0.1 MG/ML 10ML SYR IV PRN (09:04)
[2021-03-02] MEDS ORDERED: ePHEDrine sulfate 50 MG/ML AMP IV PRN (09:04)
[2021-03-02] MEDS ORDERED: LABETALOL HCL IV 5 MG/ML 20ML IV PRN (09:04)
[2021-03-02] MEDS ORDERED: ONDANSETRON INJ 2 MG/ML 2 ML VIAL IV PRN ×2 (09:04→12:30)
[2021-03-02] MEDS ORDERED: FLOSEAL HEMOSTATIC MATRIX 10ML TOP ONE (09:55)
--- NOTE | 2021-03-02 10:07 | Operative Report ---
Post Operative Report Pre & Post Diagnosis Operation Date: 03/02/21 07:45 Pre-Op Diagnosis: Neurogenic claudication due to lumbar spinal stenosis Post-Op Diagnosis: Neurogenic claudication due to lumbar spinal stenosis I identified the patient and participated in the time-out.: Yes Procedure Operation Date: 03/02/21 07:45 Actual Procedures #1 lumbar decompression with bilateral medial facetectomies and foraminotomies L3-4, L4-5 and L5-S1. #2 posterior spinal fusion L4-5 and L5-S1. #3 placement of posterior instrumentation L4-5 L5-S1. #4 interbody fusion L5-S1. #5 placement peek cage 15 x 26 mm at L5-S1. #6 placement locally harvested morselized autograft in the posterior gutters. #7 placement infuse collagen sponge, master graft in the posterior lateral gutters and I factor in the interbody space. Surgeon Leo Raman, [place] Shelby Ayala Estimated Blood Loss 350 Findings Consistent with Post-Op Diagnosis Specimens None Indications This is a 60-year-old male who presents with above-mentioned diagnosis after failing course of nonoperative care is here for the above-mentioned procedure. Description of Procedure Patient was met with identified informed consent obtained. Patient was then taken to the operative suite underwent ablation placed in a prone position the Refugio table top Cristian frame. All bony prominences well-padded eyes inspected to ensure no external pressure placed upon them. This point the lumbar spine was prepped and draped in a sterile fashion. Sharp dissection with the assistance of Bovie cautery was performed down to and exposing the lamina and transverse processes of L 4 L5 and the sacral ala bilaterally. From a caudal cephalad fashion complete laminectomy of L5 L4 and partial laminectomy L3 was performed including bilateral medial facetectomies and foraminotomies addressing severe spinal stenosis. Pedicle screws were then placed in an L4-L5 and S1 levels bilaterally with assistance of fluoroscopy and appropriately sized tristian placed. By way of a transforaminal approach on the right a complete discectomy of L5-S1 was performed endplates curetted to subcortically bone and a 15 x 26 mm peek cage filled with I factor tapped in position. The rods were then locked into final position bilaterally. The transverse processes of L4-L5 and sacral ala burred to subcortical bleeding bone. Infuse collagen sponge master graft local autograft was then placed in the posterior lateral gutters. 15 round ARIS drain inserted. The incision was then closed with 1 Vicryl in the fascia 2-0 Vicryl subcutaneously and 4 Monocryl for final skin closure. Steri-Strip sterile dressings placed. Patient will continue PACU stable condition. Please note spinal cord monitoring visualized at the procedure no changes noted. Lastly Shelby Ayala was present at the entire surgery involved the patient positioning complex portions of the surgery and final skin closure. I attest to the content of the Intraoperative Record and any orders documented therein. Any exceptions are noted below.
[2021-03-02] MEDS: fentaNYL citrate 100 MCG/2 ML VIAL IV PRN ×4 (10:28→10:45)
[2021-03-02] MEDS: HYDROmorphone INJ 1 MG/ML SYRINGE IV PRN ×2 (10:55→11:11)
--- NOTE | 2021-03-02 11:32 | Fluoroscopy Report ---
FL lumbar spine 2-3V CLINICAL HISTORY: L3-S1 DECOMPRESSION AND FUSION COMPARISON STUDY: None. FLUOROSCOPY TIME: 20 seconds. FLUOROSCOPIC IMAGES: 2 FINDINGS: Fluoroscopy was provided during L5-S1 discectomy with interbody spacer placement. There is a posterior decompression with bilateral pleural screws at the L4, L5 and S1 levels. Hardware is inta ct. IMPRESSION: Fluoroscopy provided during L5-S1 discectomy and posterior decompression with L4-S1 bila teral pedicle screw fusion. ACT 112: Negative or not required by law. Electronically signed by: Mauricio Ashraf M.D. 03/02/2021 11:31 AM
--- NOTE | 2021-03-02 12:12 | Anesthesiology Progress Note ---
Date of Service March 02, 2021 Anesthesia Post Procedure Vital Signs Vital Signs: Temp Pulse Resp BP Pulse Ox 03/02/21 11:35 36.4 C L 85 13 107/79 99 03/02/21 11:25 36.4 C L 84 16 101/66 100 03/02/21 11:15 74 18 131/70 100 03/02/21 11:05 84 18 116/81 100 03/02/21 10:55 92 H 18 123/71 100 03/02/21 10:45 88 18 122/64 100 03/02/21 10:35 92 H 18 106/62 100 03/02/21 10:25 88 18 113/76 100 03/02/21 10:18 36.6 C 88 18 112/76 100 03/02/21 07:04 36.7 C 66 20 162/93 H 99 Pain Intensity Posterior Back: Pain Intensity: 4 Transfer of Care Handoff Completed per policy Notes Mental Status: alert / awake / arousable Patient Amnestic to Procedure: Yes Nausea / Vomiting: adequately controlled Pain: adequately controlled Airway Patency, RR, SpO2: stable & adequate BP & HR: stable & adequate Hydration State: stable & adequate Anesthetic Complications: no major complications apparent
[2021-03-02] MEDS: LACTATED RINGER'S 1,000 ML IV SCH ×2 (12:25→21:35)
[2021-03-02] MEDS ORDERED: FAMOTIDINE 20 MG TAB PO PRN (12:30)
[2021-03-02] MEDS ORDERED: ALUMINUM/MAGNESIUM SUSP 30 ML UDC PO PRN (12:30)
[2021-03-02] MEDS ORDERED: DO NOT ADMINISTER PNEUMOCOCCAL VACCINE PRN (12:30)
[2021-03-02] MEDS ORDERED: diphenhydrAMINE Capsule 25 MG CAP PO PRN ×2 (12:30)
[2021-03-02] MEDS ORDERED: HYDROmorphone INJ 1 MG/ML SYRINGE IV PRN (12:30)
[2021-03-02] MEDS ORDERED: traMADol HCL 50 MG TABLET PO PRN (12:30)
[2021-03-02] MEDS ORDERED: hydrOXYzine HCl 25 MG TAB PO PRN (12:30)
[2021-03-02] MEDS ORDERED: METOCLOPRAMIDE HCL INJ 5 MG/ML 2 ML VIAL IV PRN (12:30)
[2021-03-02] MEDS ORDERED: ACETAMINOPHEN 1,000 MG/100 ML VIAL IV PRN (12:30)
[2021-03-02] MEDS ORDERED: LORazepam 0.5 MG TAB PO PRN (12:30)
[2021-03-02] MEDS ORDERED: HYDROmorphone INJ 0.5 MG/0.5 ML SYR IV PRN (12:30)
[2021-03-02] MEDS ORDERED: ACETAMINOPHEN 500 MG TAB PO PRN (12:30)
[2021-03-02] MEDS ORDERED: MAGNESIUM HYDROXIDE SUSP 30 ML UDC PO PRN (12:30)
[2021-03-02] MEDS ORDERED: SOD PHOSPHATE/SOD BIPHOSPHATE ENEMA 132 ML BTL PR PRN (12:30)
[2021-03-02] MEDS ORDERED: LORazepam 0.5 MG/1 ML VIAL IV PRN (12:30)
[2021-03-02] MEDS ORDERED: ONDANSETRON 4 MG OD TAB PO PRN (12:30)
[2021-03-02] MEDS ORDERED: DO NOT ADMINISTER FLU VACCINE PRN (12:30)
--- NOTE | 2021-03-02 12:49 | Hospitalist Consultation ---
Date of Consultation March 02, 2021 Assessment & Plan (1) S/P spinal surgery: This is a 60yo m with a PMH of HTN, HLD, CKD III, BPH, depression, anxiety, GERD and other medical problems listed below who is POD #0 s/p lumbar decompression with bilateral medial facetectomies and foraminotomies L3-4, L4-5 and L5-S1 and posterior spinal fusion L4-5 and L5-S1. POD #0 s/p lumbar decompression with bilateral medial facetectomies and foraminotomies L3-4, L4-5 and L5-S1 and posterior spinal fusion L4-5 and L5-S1 by Dr. Raman Per ortho for pain control, wound care, anticoagulation and activities Monitor H&H for post op anemia (EBL 350 ml, pre-op hgb 15.3) Continue incentive spirometry, PT/OT when appropriate (2) HTN (hypertension): Continue amlodipine (3) Hyperlipidemia: Continue atorvastatin (4) Transient ischemic attack (TIA): Remote history. Continue baby aspirin, statin (5) Depression: Stable. Continue duloxetine (6) Tobacco use: Smokes 1/2 ppd. Nicotine patch offered (7) GERD (gastroesophageal reflux disease): Continue PPI, H2 zach PCP: Javier Dispo: Per primary service Patient seen in collaboration with Dr. Marks. Please see addendum. Supervising Physician Co-Signing Physician Notes I saw this patient with the physician assistant program manager, I participated in the history, physical, review of systems, and physical examon this consult. I reviewed the medications with the patient and the physician assistant program manager and helped reconcile the medications. I helped take a detailed family and social history as well. I formulated the assessment and plan personally with the physician assistant program manager and went over it with the patient. ROS-No Headache, No Visual Changes, No Nausea, No Vomiting, No Fever, No Chills, No Neck Pain or Stiffness, No Chest Pain, No Palpitations, No SOB, No JACK, No Cough, No Sputum, No Wheezing, No Abdominal Pain, No Diarrhea, No Hematemesis, No Hemoptysis, No Unexpected Weight Loss, No Flank pain, No Melena, No Hematochezia, No Frequency, No Urgency, No Burning, No Hematuria, No Rashes, No Diaphoresis. Appetite is Normal, mild leg numbness, burning is gone, sore back Physical Exam Gen-AAO x 3, NAD, Afebrile Head-NCAT, EOMI, PERRLA, Anicteric Sclera, No Posterior Pharyngeal Erythema Neck-Supple, No JVD, No Thyromegaly, No Masses, No LAD, No Bruits Lungs-Clear to Auscultation Bilaterally, No Rales, No Rhonchi, No Wheezing, No Crepitus Chest-No S4, +S1, +S2, No S3, No Murmurs, No Rubs, No Gallops, No Ectopy Abdomen-Soft, Bowel Sounds Present, Non Tender, Non Distended, No Hepatomegaly, No Splenomegaly, No Palpable Masses, No Rebound, No Rigidity, No Guarding Musculoskeletal-Sore back c movement, No CVAT Extremities-No Cyanosis, No Clubbing, No Edema Nuero-Cranial Nerves II-XII grossly intact, Motor WNL, DTRs WNL, Strength WNL, Non Focal Psych-Normal Mood History of Present Illness Reason for Consultation: Postop medical management Attending Physician: Leo Raman DO History of Present Illness This is a 60yo m with a PMH of HTN, HLD, CKD III, BPH, depression, anxiety, GERD and other medical problems listed below who is POD #0 s/p lumbar decompression with bilateral medial facetectomies and foraminotomies L3-4, L4-5 and L5-S1 and posterior spinal fusion L4-5 and L5-S1. Patient is feeling well postoperatively. Endorses minimal surgical site discomfort. Denies pain in bilateral lower extremities. Does have some paresthesias in left lower extremity. No longer has burning pain in feet that was present prior to surgery. Denies any fever, chills, lightheadedness, visual changes, chest pain, shortness of breath, nausea, vomiting, abdominal pain or dysuria. Receives prim molly care from Dr. Herrera. Allergies Allergy/AdvReac Type Severity Reaction Status Date / Time lisinopril Allergy Severe Swelling Verified 03/02/21 06:39 of Lip/Tongue/Throat Home Medications Medication Instructions Recorded Confirmed Type allopurinol 100 mg PO QAM 04/03/20 03/02/21 History nicotine 1 patch TRANSDERMAL QAM 04/03/20 03/02/21 History cetirizine 10 mg PO QAM #30 tab 09/04/20 03/02/21 Rx diphenhydramine HCl 25 mg PO Q6H PRN #20 cap 09/04/20 03/02/21 Rx duloxetine 60 mg PO QAM 09/04/20 03/02/21 History epinephrine [EpiPen 2-Max] 0.3 mg IM UD PRN #2 ea 09/04/20 03/02/21 Rx esomeprazole magnesium 40 mg PO QAM 09/04/20 03/02/21 History famotidine 20 mg PO BID #60 tab 09/04/20 03/02/21 Rx gabapentin 600 mg PO TID 09/04/20 03/02/21 History amlodipine 10 mg PO QAM 12/22/20 03/02/21 History aspirin [Ecotrin Low Strength] 81 mg PO QDD 12/22/20 03/02/21 History atorvastatin 10 mg PO QAM 12/22/20 03/02/21 History Patient History Medical History (Updated 03/02/21 @ 13:56 by Iris Jones PA-C) Degenerative disc disease Depression Diverticular disease Elevated prostate specific antigen (PSA) GERD (gastroesophageal reflux disease) Gout Hiatal hernia HTN (hypertension) Hyperlipidemia Osteoarthritis Transient ischemic attack (TIA) remote hx > unknown to pt time of event, no further issue, was found on ct scan a few yrs ago Surgical History (Updated 03/02/21 @ 13:56 by Iris Jones PA-C) History of colonoscopy History of esophagogastroduodenoscopy (EGD) History of tonsillectomy History of tooth extraction Hx of prostate biopsy benign Family History Father Colorectal cancer Social History (Updated 03/02/21 @ 12:48 by Iris Jones PA-C) Smoking Status: Current every day smoker Tobacco Type: Cigarettes Cigarettes Per Day: 10 cig a day; Second Hand Exposure: Yes; Do You Dip or Chew Tobacco: No; Tobacco Cessation Education Requested by Patient: No Hx Alcohol Use: No Hx Substance Use: Yes Substance Use Type Other:: HS (for sleep) Preferred Language: German Communication Ability: Effective Knife Setter Required: No Beliefs That Will Affect Care: None Current Living Situation: Spouse Current Living Situation Comment: with girlfriend Ada Other Information That Helps Us Care for You: No Feels Safe at Home: Yes Safety Concerns: Feels Safe At This Time Assistive Devices: Denture - Upper, Denture - Lower and Glasses Review of Systems Review of Systems: At least ten systems reviewed and negative except as noted in the HPI. Physical Exam Physical Exam: General Appearance: WD/WN, vitals as above, NAD, lying in bed, pleasant, conversing easily Head: normocephalic, atraumatic Eyes: normal inspection, PERRL, conjunctivae normal, anicteric sclerae ENT: external ear and nose normal, oropharynx normal Neck: normal visual inspection, trachea midline, no thyromegaly Respiratory: normal respiratory effort, lungs clear to auscultation, no wheeze, rales, rhonchi. No accessory muscle use Cardiovascular: regular rate, rhythm, no murmur, normal peripheral pulses, no BLE edema Abdomen/GI: normal bowel sounds, soft, nontender, no hepatosplenomegaly Extremities/Musculoskeletal: +Lumbosacral spinal dressing c/d/i. +ARIS drain visualized. No cyanosis or clubbing, extremities motor strength 5/5 Neurologic: PERRL, CN's II-XI intact bilaterally and moves all extremities Psychiatric: A+Ox3, euthymic affect Skin: no rashes, normal color, warm/dry Results & Data Results & Data ([facility]) Vital Signs (Past 12 Hours) Vital Signs Temp Pulse Resp BP Pulse Ox 03/02/21 11:35 36.4 C L 85 13 107/79 99 03/02/21 11:25 36.4 C L 84 16 101/66 100 03/02/21 11:15 74 18 131/70 100 03/02/21 11:05 84 18 116/81 100 03/02/21 10:55 92 H 18 123/71 100 03/02/21 10:45 88 18 122/64 100 03/02/21 10:35 92 H 18 106/62 100 03/02/21 10:25 88 18 113/76 100 03/02/21 10:18 36.6 C 88 18 112/76 100 03/02/21 07:04 36.7 C 66 20 162/93 H 99 Diagnostic Findings Lumbar Spine X-Ray 03/02/21 07:45 FL lumbar spine 2-3V CLINICAL HISTORY: L3-S1 DECOMPRESSION AND FUSION COMPARISON STUDY: None. FLUOROSCOPY TIME: 20 seconds. FLUOROSCOPIC IMAGES: 2 FINDINGS: Fluoroscopy was provided during L5-S1 discectomy with interbody spacer placement. There is a posterior decompression with bilateral pleural screws at the L4, L5 and S1 levels. Hardware is intact. IMPRESSION: Fluoroscopy provided during L5-S1 discectomy and posterior decompression with L4-S1 bilateral pedicle screw fusion. ACT 112: Negative or not required by law. Electronically signed by: Mauricio Ashraf M.D. 03/02/2021 11:31 AM
[2021-03-02] MEDS: oxyCODONE HCL IR 5 MG TAB (IMMEDIATE RELEASE) PO PRN ×3 (13:06→21:35)
[2021-03-02] MEDS ORDERED: fentaNYL citrate 100 MCG/2 ML VIAL IV ONE (13:26)
[2021-03-02] MEDS ORDERED: HYDROmorphone INJ 0.5 MG/0.5 ML SYR IV ONE (13:26)
[2021-03-02] MEDS: GABAPENTIN 300 MG CAP PO SCH ×2 (14:25→21:32)
[2021-03-02] MEDS: ceFAZolin 2000MG 2,000 MG/15 ML SYR IV SCH (16:31)
[2021-03-02] MEDS: ASPIRIN 81 MG ECTAB PO SCH (16:31)
[2021-03-02] MEDS: DOCUSATE SODIUM/SENNA 50/8.6MG TAB PO SCH (21:31)
[2021-03-02] MEDS: FAMOTIDINE 20 MG TAB PO SCH (21:31)
[2021-03-03] MEDS: ceFAZolin 2000MG 2,000 MG/15 ML SYR IV SCH (00:39)
[2021-03-03] MEDS: LACTATED RINGER'S 1,000 ML IV SCH (05:51)
[2021-03-03] MEDS: oxyCODONE HCL IR 5 MG TAB (IMMEDIATE RELEASE) PO PRN ×5 (05:57→23:57)
[2021-03-03] MEDS: POLYETHYLENE (MIRALAX) 17 GM PACK PO SCH ×4 (05:57→23:30)
[2021-03-03 06:45] LABS: Hematocrit (blood only) 33.9 % (42-52); Hemoglobin 11.7 g/dL (14.0-18.0); Immature Granulocytes # (auto) 0.05 K/uL (0.00-0.02); Immature Granulocytes % (auto) 0.3 %; Lymphocytes # (auto) 1.25 K/uL (1.2-3.4); Lymphocytes % (auto) 6.9 %; Mean Corpuscular Hgb Conc 34.5 g/dL (32-36); Mean Corpuscular Volume 89.7 fL (80-100); Mean Platelet Volume 10.4 fL (7.4-10.4); Monocytes # (auto) 1.16 K/uL (0.11-0.59); Monocytes % (auto) 6.4 %; Neutrophils # (auto) 15.68 K/uL (1.4-6.5); Neutrophils % (auto) 86.4 %; Platelet Count 234 K/uL (130-400); RDW Standard Deviation 42.2 fL (36.4-46.3); Red Blood Count 3.78 M/uL (4.7-6.1); White Blood Count 18.14 K/uL (4.8-10.8)
[2021-03-03 07:18] LABS: BUN Creatinine Ratio 11.7 (10-20); Calcium 8.5 mg/dl (8.5-10.1); Creatinine Clr Calc Pharmacy 75.9 ml/min; Est GFR (African American) 80.3 ml/min; Est GFR (Non-African American) 69.3 ml/min; Potassium 3.9 mmol/L (3.5-5.1)
[2021-03-03] MEDS: amLODIPine BESYLATE 5 MG TAB PO SCH (08:57)
[2021-03-03] MEDS: DULoxetine HCL 60 MG CAP PO SCH (08:58)
[2021-03-03] MEDS: CETIRIZINE HCL 10 MG TABLET PO SCH (08:58)
[2021-03-03] MEDS: ATORVASTATIN 10 MG TAB PO SCH (08:58)
[2021-03-03] MEDS: allopurinoL 100 MG TAB PO SCH (08:58)
[2021-03-03] MEDS: GABAPENTIN 300 MG CAP PO SCH ×3 (08:59→20:13)
[2021-03-03] MEDS: NICOTINE 21 MG/24 HR TDSY TD SCH (08:59)
[2021-03-03] MEDS: FAMOTIDINE 20 MG TAB PO SCH ×2 (08:59→20:12)
[2021-03-03] MEDS: PANTOprazole 40 MG TAB PO SCH (09:00)
--- NOTE | 2021-03-03 12:25 | Orthopedic Progress Note ---
Date of Service March 03, 2021 Assessment & Plan (1) Neurogenic claudication due to lumbar spinal stenosis: Admission and Anticipated Discharge Date Admission Date: March 02, 2021 At this time we will continue physical therapy monitor his ARIS output anticipate discharge home in the next few days. Subjective Back pain controlled leg symptoms markedly improved Physical Exam Physical Exam: On exam patient is good strength testing appears comfortable. Results & Data ([facility]) Vital Signs (Past 12 Hours) Vital Signs Temp Pulse Pulse Resp BP Pulse Ox 03/03/21 11:49 36.5 C 73 18 130/70 98 03/03/21 07:30 36.6 C 78 18 138/80 99 03/03/21 03:00 36.6 C 89 14 113/67 99
[2021-03-03] MEDS: ASPIRIN 81 MG ECTAB PO SCH (17:21)
--- NOTE | 2021-03-03 17:30 | Hospitalist Progress Note ---
Date of Service March 03, 2021 Assessment & Plan (1) S/P spinal surgery: Patient is a 60 yr male with H/O HTN, HLD, CKD III, BPH, depression, anxiety, GERD and other medical problems listed below who is POD #0 s/p lumbar decompression with bilateral medial facetectomies and foraminotomies L3-4, L4-5 and L5-S1 and posterior spinal fusion L4-5 and L5-S1. S/P L4-S1 decompression fusion surgery by Dr. Raman POD #1 Postoperative blood loss anemia-expected Wound Care, DVT prophylaxis, activity as per primary team Pain control Continue bowel regimen to prevent constipation Continue spirometry Leukocytosis likely reactive Monitor CBC PT/OT (2) HTN (hypertension): Continue amlodipine (3) Hyperlipidemia: Continue atorvastatin (4) Transient ischemic attack (TIA): Continue aspirin, statin (5) Depression: Continue duloxetine (6) Tobacco use: Smokes 1/2 ppd. Counseled to quit (7) GERD (gastroesophageal reflux disease): Continue PPI, Famotidine DVT Px: SCDs CODE STATUS Full code Disposition: Per primary service Admission and Anticipated Discharge Date Admission Date: March 02, 2021 Subjective Patient is seen and examined at bedside Back pain is better today + Flatus, no bowel movement this morning Left leg numbness much improved today States having nausea overnight but resolved Denies chest pain, dizziness, dyspnea, abdominal pain Offers no other complaints Review of Systems Review of Systems: All systems reviewed & are unremarkable except as noted in HPI & below Physical Exam Physical Exam: Physical Exam: Vitals signs as noted above General Appearance:Moderately built and nourished, no apparent distress Head: normocephalic, Atraumatic Eyes: normal inspection, EOMI Neck: supple, Trachea midline Respiratory/Chest: Normal breath sounds, CTA Cardiovascular: S1, S2, No murmur Abdomen/GI:Soft, Non tender, Bowel sounds present Back: Surgical site in dressing, +drain Extremities/Musculoskeletal:normal inspection, no edema Neurologic/Psych:AAOX3, grossly no focal neurological deficits Skin: normal color, warm Results & Data Results & Data ([facility]) Vital Signs (Past 12 Hours) Vital Signs Temp Pulse Pulse Resp BP Pulse Ox 03/03/21 14:54 36.6 C 75 20 134/72 100 03/03/21 14:22 36.4 C L 76 16 183/66 H 99 03/03/21 11:49 36.5 C 73 18 130/70 98 03/03/21 07:30 36.6 C 78 18 138/80 99 Laboratory Results Short CBC 03/03/21 Range/Units 06:10 WBC 18.14 H (4.8-10.8) K/uL Hgb 11.7 L (14.0-18.0) g/dL Hct 33.9 L (42-52) % Plt Count 234 (130-400) K/uL BMP 03/03/21 06:10 Sodium 139 Potassium 3.9 Chloride 107 Carbon Dioxide 25 BUN 13 Creatinine 1.13 Glucose 124 H Calcium 8.5
[2021-03-03] MEDS: DOCUSATE SODIUM/SENNA 50/8.6MG TAB PO SCH (20:13)
[2021-03-04] MEDS: POLYETHYLENE (MIRALAX) 17 GM PACK PO SCH ×2 (05:19→12:19)
[2021-03-04] MEDS: oxyCODONE HCL IR 5 MG TAB (IMMEDIATE RELEASE) PO PRN ×2 (05:20→09:19)
[2021-03-04 06:01] LABS: Hematocrit (blood only) 32.9 % (42-52); Hemoglobin 11.1 g/dL (14.0-18.0); Mean Corpuscular Hemoglobin 30.8 pg (25-34); Mean Corpuscular Hgb Conc 33.7 g/dL (32-36); Mean Corpuscular Volume 91.4 fL (80-100); Mean Platelet Volume 10.2 fL (7.4-10.4); Platelet Count 199 K/uL (130-400); RDW Standard Deviation 43.9 fL (36.4-46.3); White Blood Count 11.05 K/uL (4.8-10.8)
[2021-03-04 06:41] LABS: Calcium 8.2 mg/dl (8.5-10.1); Est GFR (Non-African American) 79.3 ml/min; Potassium 3.8 mmol/L (3.5-5.1)
[2021-03-04] MEDS: DULoxetine HCL 60 MG CAP PO SCH (07:46)
[2021-03-04] MEDS: GABAPENTIN 300 MG CAP PO SCH (07:46)
[2021-03-04] MEDS: PANTOprazole 40 MG TAB PO SCH (07:46)
[2021-03-04] MEDS: allopurinoL 100 MG TAB PO SCH (07:46)
[2021-03-04] MEDS: amLODIPine BESYLATE 5 MG TAB PO SCH (07:46)
[2021-03-04] MEDS: ATORVASTATIN 10 MG TAB PO SCH (07:46)
[2021-03-04] MEDS: FAMOTIDINE 20 MG TAB PO SCH (07:46)
[2021-03-04] MEDS: CETIRIZINE HCL 10 MG TABLET PO SCH (07:46)
[2021-03-04] MEDS: NICOTINE 21 MG/24 HR TDSY TD SCH (07:47)
--- NOTE | 2021-03-04 08:20 | Discharge Summary ---
Date of Service March 04, 2021 Admission HPI Per Admitting Provider This is a 60-year-old male presents with chronic persistent back and bilateral leg pain. Failing course of nonoperative care is here for surgical invention. Principal Diagnosis Lumbar spinal stenosis with neurogenic claudication Discharge Data Allergies Allergy/AdvReac Type Severity Reaction Status Date / Time lisinopril Allergy Severe Swelling Verified 03/02/21 06:39 of Lip/Tongue/Throat Consultations 03/02/21 12:30 Consult Hospitalist Routine Procedures Performed Operation Date: 03/02/21 07:45 Actual Procedures p L4-S1 Decompression Fusion with Insertion of Interbody, Application of Bone Morphogenetic Protein, Spinal Cord Monitoring(Not Applicable) - Leo Raman DO Ordered Studies 03/02/21 07:45 FL lumbar spine 2-3V Routine Hospital Course (1) Neurogenic claudication due to lumbar spinal stenosis: Patient with lumbar decompression fusion tolerates well second orthopedic for postoperative. Postop day 1 he was up and ambulating progressive postop day #2. Excellent strength testing. Pain well controlled. Subsequently discharged home. Discharge orders instructions from the chart for further review. Total Time Total Time Spent Total Time Spent (In Minutes): 20 minutes Discharge Plan Discharge Items Patient Disposition: Home - Home Health Services Reason For Visit: Spondylolisthesis, Lumbar Region Discharge Diagnosis: Lumbar spinal stenosis with spondylolisthesis Activity: As commented below Non-emergency contact: Primary Care Provider Call non-emergency contact if: you have any medication questions Follow-up/Referrals: Kb Herrera DO [Primary Care Provider] - Diet: Regular Addtl Attending Provider Instructions: ACTIVITY RECOMMENDATIONS: SELF CARE INSTRUCTIONS AFTER THORACIC/LUMBAR FUSIONS 1. You may walk to your tolerance. It is good exercise for your legs and back. Expect some back and intermittent leg aches and pains. 2. You may perform "counter-top" level activities (make a sandwich, haider with a project, etc.). 3. No bending or lifting of more than 10 pounds or back twisting of any nature (roll like a log when turning in bed). 4. You may ride in a car for 20-30 minutes at a time. No driving until after your first visit with your doctor. 5. Frequent changes of position and restricting sitting to 30 minutes at a time will help limit the amount of back spasms and stiffness you may experience. 6. You may discontinue the use of ambulatory aids (cane, crutches, etc.) once your strength and confidence allow. 7. You may lotus notes administrator the shower and let water strike your incision when you arrive home at least once daily. Do not take a tub bath, sit in a hot tub or go into a swimming pool until after your first recheck in the office. SPECIAL CARE INSTRUCTIONS: VERY IMPORTANT TO READ AND REVIEW A. Your surgical incision has been closed with a cosmetic suture under the skin that will dissolve in about 6 weeks. In 14 days, you can use a pair of clean scissors and cut the suture that is left outside of the skin at the ends of your incision. 1. The small skin tapes can be removed 7 days after surgery if they have not fallen off by that point. 2. You may keep the wound open to air as much as possible to promote healing after post-op day number 5 unless told otherwise by your doctor. 3. If you think the wound looks like it is becoming infected (redness or worsening drainage) and/or you are experiencing fever, chill or worsening back pain and muscle spasms, contact the office so that we may evaluate you as soon as possible. B. Complications are uncommon, but please contact us if you have any signs or symptoms of: 1. wound infection (fever higher than 102.5 degrees F, redness, separation of wound, drainage, or increasing pain from the incision) 2. blood clots in legs (pain, swelling, redness and warmth in legs) 3. urinary tract infection (fever higher than 102.5 degrees F, burning upon urination or increased frequency of urination) 4. nerve problems (inability to walk on your toes or heels, numbness, loss of bowel or bladder control) 5. any other symptoms that concern you C. Please call the office at if you have any concerns or questions about your operation or recovery. D. No smoking! Smoking drastically decreases the chance of a solid fusion. E. Do not take any anti-inflammatory medications (Indocin, Advil, Motrin, Aspirin, Naprosyn, etc.) as these may inhibit the chance of a solid fusion. Tylenol is okay to take for pain. MANAGING PAIN AFTER SPINAL SURGERY 1. Narcotic medication is intended for short-term use and will be provided for surgical pain. Surgical pain usually lasts for a period of 4-6 weeks. Narcotic medication includes Percocet, Vicodin, Darvocet, Tylenol #3 or Lortab. 2. Longer-term pain is more appropriately treated with non-narcotic medication such as Tylenol ES. 3. Muscle spasm is not appropriately treated with narcotics. Muscle relaxers such as Soma, Flexeril or Skelaxin can be used along with Tylenol ES. 4. Remember that we all live with some "aches and pains". This is not unusual or uncommon after an injury or as we get older. a. Back pain is expected and may include muscle spasms for 4 to 6 weeks after surgery. The pain should gradually improve. If the pain worsens for no apparent reason, please contact the office. b. Intermittent leg pain may also be experienced and should not be concerned about unless it worsens for no apparent reason. If so, please contact the office. 5. We will provide appropriate medication within the normal guidelines of their prescribed use. We will also be very cautious and aware of potential abuse and extended duration of patients' medication needs. a. Pain medications are for your comfort and to assist with sleep and rest so that the tissue can heal. They are not provided in order to return to normal activity and should not be used through the day. To do so or worsening pain at night can result from ongoing tissue damage and development of tolerance to the prescribed medicine. 6. Please allow 2-3 days to process refills. Prescriptions will not be mailed but must be picked up at the office. FOLLOW UP VISIT: Keep your scheduled follow-up appointment. Any questions, please call the office at . Pending Studies at Discharge: No Stand-Alone Forms: [facility], [facility] C[facility] Medications and DC Order Prescriptions: New tramadol 50 mg tablet 50 mg PO Q6H PRN (Reason: pain, moderate) Qty: 30 RF: 0 oxycodone 5 mg tablet 5 mg PO Q6H PRN (Reason: pain, severe) Qty: 30 RF: 0 Continued gabapentin 300 mg capsule 600 mg PO TID RF: 0 esomeprazole magnesium 40 mg capsule,delayed release(DR/EC) 40 mg PO QAM RF: 0 duloxetine 60 mg capsule,delayed release(DR/EC) 60 mg PO QAM RF: 0 cetirizine 10 mg Tablet 10 mg PO QAM Qty: 30 RF: 2 famotidine 20 mg Tablet 20 mg PO BID Qty: 60 RF: 1 diphenhydramine HCl 25 mg capsule 25 mg PO Q6H PRN (Reason: itching) Qty: 20 RF: 0 epinephrine [EpiPen 2-Max] 0.3 mg/0.3 mL auto-injector 0.3 mg IM UD PRN (Reason: anaphylaxis) Qty: 2 RF: 0 allopurinol 100 mg tablet 100 mg PO QAM RF: 0 nicotine 21 mg/24 hr patch 24 hour 1 patch transdermal QAM RF: 0 atorvastatin 10 mg Tablet 10 mg PO QAM RF: 0 amlodipine 5 mg tablet 10 mg PO QAM RF: 0 aspirin [Ecotrin Low Strength] 81 mg tablet,delayed release (DR/EC) 81 mg PO QDD RF: 0 Discharge Orders: Discharge Order (Routine); Ordered 03/04/21 Ordered By: Leo Raman Admission Data Admit Date/Time: 03/02/21 10:26 Attending Provider: Leo Raman Admit Provider: Leo Raman Primary Care Provider: Kb Herrera Other Providers: [facility],Home Health ; Zhang Mane
[2021-03-04] MEDS ORDERED: dexAMETHasone 8 MG in SYRINGE 0 ML IV SCH (09:00)
[2021-03-04] MEDS ORDERED: bisacodyL 10 MG SUPP PR PRN (10:08)
--- NOTE | 2021-03-04 13:17 | Hospitalist Progress Note ---
Date of Service March 04, 2021 Assessment & Plan (1) S/P spinal surgery: Patient is a 60 yr male with H/O HTN, HLD, CKD III, BPH, depression, anxiety, GERD and other medical problems listed below who is POD #0 s/p lumbar decompression with bilateral medial facetectomies and foraminotomies L3-4, L4-5 and L5-S1 and posterior spinal fusion L4-5 and L5-S1. S/P L4-S1 decompression fusion surgery by Dr. Raman POD #2 Postoperative blood loss anemia-expected Wound Care, DVT prophylaxis, activity as per primary team Pain control Continue bowel regimen to prevent constipation Continue spirometry Leukocytosis trended down Monitor CBC Continue PT/OT Needs follow-up with surgery upon discharge (2) HTN (hypertension): Continue amlodipine (3) Hyperlipidemia: Continue atorvastatin (4) Transient ischemic attack (TIA): Continue aspirin, statin (5) Depression: Continue duloxetine (6) Tobacco use: Smokes 1/2 ppd. Counseled to quit (7) GERD (gastroesophageal reflux disease): Continue PPI, Famotidine DVT Px: SCDs CODE STATUS Full code Disposition: Per primary service Advised to follow-up with PCP in 1 week upon discharge Admission and Anticipated Discharge Date Admission Date: March 02, 2021 Subjective Patient is seen and examined at bedside Back pain is controlled No new complaints Left leg numbness slowly improving Denies chest pain, dizziness, dyspnea, abdominal pain Review of Systems Review of Systems: All systems reviewed & are unremarkable except as noted in HPI & below Physical Exam Physical Exam: Physical Exam: Vitals signs as noted above General Appearance:Moderately built and nourished, no apparent distress Head: normocephalic, Atraumatic Eyes: normal inspection, EOMI Neck: supple, Trachea midline Respiratory/Chest: Normal breath sounds, CTA Cardiovascular: S1, S2, No murmur Abdomen/GI:Soft, Non tender, Bowel sounds present Back: Surgical site in dressing, +drain Extremities/Musculoskeletal:normal inspection, no edema Neurologic/Psych:AAOX3, grossly no focal neurological deficits Skin: normal color, warm Results & Data Results & Data ([facility]) Vital Signs (Past 12 Hours) Vital Signs Temp Pulse Pulse Pulse Resp BP BP 03/04/21 08:48 36.6 C 73 70 68 16 107/79 122/75 03/04/21 06:10 36.6 C 70 16 122/75 Pulse Ox 03/04/21 08:48 96 03/04/21 06:10 96 Laboratory Results Short CBC 03/04/21 Range/Units 05:43 WBC 11.05 H (4.8-10.8) K/uL Hgb 11.1 L (14.0-18.0) g/dL Hct 32.9 L (42-52) % Plt Count 199 (130-400) K/uL BMP 03/04/21 05:43 Sodium 138 Potassium 3.8 Chloride 105 Carbon Dioxide 29 BUN 17 Creatinine 1.01 Glucose 122 H Calcium 8.2 L
== END 2021-03-04 13:27 | disposition home health service (06) | DRG 455 ==
LOC: ASU 06:13 → 3E 10:26

== ENCOUNTER 2023-03-31 07:16 | Inpatient (IN) ==
--- NOTE | 2023-03-07 13:59 | PAT Medication Instructions ---
Medication Instructions Date of Service March 07, 2023 Home Medications Medication Instructions Recorded cetirizine 10 mg tablet 10 mg PO QAM #30 tabs 09/04/20 diphenhydramine HCl 25 mg capsule 25 mg PO Q6H PRN itching #20 caps 09/04/20 epinephrine 0.3 mg/0.3 mL 0.3 mg (0.3 mL) IM UD PRN 09/04/20 injection, auto-injector (EpiPen anaphylaxis #2 ea 2-Max) famotidine 20 mg tablet 20 mg PO BID #60 tabs 09/04/20 oxycodone 5 mg tablet 5 mg PO Q6H PRN pain, severe #30 03/03/21 tabs tramadol 50 mg tablet 50 mg PO Q6H PRN pain, moderate 03/03/21 #30 tabs alfuzosin 10 mg tablet,extended 10 mg PO DAILY #90 tabs 02/03/23 release 24 hr (Uroxatral) sulfamethoxazole 800 1 tab PO BID 2 weeks #28 tabs 02/09/23 mg-trimethoprim 160 mg tablet (Bactrim DS) allopurinol 100 mg tablet 100 mg PO QAM cetirizine 10 mg tablet 10 mg PO QAM diphenhydramine HCl 25 mg capsule 25 mg PO Q6H PRN duloxetine 60 mg capsule,delayed release 60 mg PO QAM epinephrine 0.3 mg/0.3 mL injection, auto-injector (EpiPen 2-Max) 0.3 mg (0.3 mL) IM UD PRN esomeprazole magnesium 40 mg capsule,delayed release 40 mg PO QAM famotidine 20 mg tablet 20 mg PO BID gabapentin 300 mg capsule 600 mg PO TID amlodipine 5 mg tablet 10 mg PO QAM aspirin 81 mg tablet,delayed release (Ecotrin Low Strength) 81 mg PO QDD atorvastatin 10 mg tablet 10 mg PO QAM oxycodone 5 mg tablet 5 mg PO Q6H PRN tramadol 50 mg tablet 50 mg PO Q6H PRN alfuzosin 10 mg tablet,extended release 24 hr (Uroxatral) 10 mg PO DAILY sulfamethoxazole 800 mg-trimethoprim 160 mg tablet (Bactrim DS) 1 tab PO BID celecoxib 200 mg capsule (Celebrex) 200 mg PO QAM finasteride 5 mg tablet 5 mg PO QAM Continue as directed alfuzosin 10 mg tablet,extended release 24 hr (Uroxatral) 10 mg PO DAILY epinephrine 0.3 mg/0.3 mL injection, auto-injector (EpiPen 2-Max) 0.3 mg (0.3 mL) IM UD PRN(if needed) ASK your surgeon for instructions celecoxib 200 mg capsule (Celebrex) 200 mg PO QAM ASK your prescriber and surgeon aspirin 81 mg tablet,delayed release (Ecotrin Low Strength) 81 mg PO QDD DO NOT take the morning of surgery cetirizine 10 mg tablet 10 mg PO QAM diphenhydramine HCl 25 mg capsule 25 mg PO Q6H PRN Take morning of surgery With a small sip of water, OTHERWISE NOTHING TO EAT OR DRINK AFTER MIDNIGHT: allopurinol 100 mg tablet 100 mg PO QAM duloxetine 60 mg capsule,delayed release 60 mg PO QAM esomeprazole magnesium 40 mg capsule,delayed release 40 mg PO QAM famotidine 20 mg tablet 20 mg PO BID gabapentin 300 mg capsule 600 mg PO TID amlodipine 5 mg tablet 10 mg PO QAM atorvastatin 10 mg tablet 10 mg PO QAM sulfamethoxazole 800 mg-trimethoprim 160 mg tablet (Bactrim DS) 1 tab PO BID finasteride 5 mg tablet 5 mg PO QAM oxycodone 5 mg tablet 5 mg PO Q6H PRN(if needed) tramadol 50 mg tablet 50 mg PO Q6H PRN(if needed) Take evening before surgery diphenhydramine HCl 25 mg capsule 25 mg PO Q6H PRN(if needed) famotidine 20 mg tablet 20 mg PO BID gabapentin 300 mg capsule 600 mg PO TID sulfamethoxazole 800 mg-trimethoprim 160 mg tablet (Bactrim DS) 1 tab PO BID oxycodone 5 mg tablet 5 mg PO Q6H PRN(if needed) tramadol 50 mg tablet 50 mg PO Q6H PRN(if needed) Other Notes If you have any questions please call us at [phone] or [phone] or [phone] or [phone]
--- NOTE | 2023-03-17 10:53 | Anesthesiology Consultation ---
Date of Service March 17, 2023 Assessment & Plan (1) Encounter for pre-operative examination: - COVID screening: Per assessment on 03/17: No known COVID-19 positive contacts or current COVID-19 related symptoms. Travel screen negative. Patient vaccinated. At surgeon discretion if preop Covid testing being done. - S/P L3-S1 decompression/fusion (03/02/21): Grade view 1, MAC#3, ETT 7.5 at [facility], [place] Chart Review Chart Review: Acceptable Risk for Surgery and Patient NOT seen in Pre Admission Testing History Surgery Operation Date: 03/31/23 07:45 Proposed Procedures p L3-L4 Decompression and Fusion, Spinal Cord Monitoring - Leo Raman, Height/Weight Height: 5 ft 9 in Weight: 96.9 kg Allergies Allergy/AdvReac Type Severity Reaction Status Date / Time hydrochlorothiazide Allergy Severe Swelling Verified 03/07/23 10:41 of Lip/Tongue/Throat lisinopril Allergy Severe Swelling Verified 03/07/23 10:40 of Lip/Tongue/Throat Medications Home Medications Medication Instructions Recorded Confirmed Last Taken allopurinol 100 mg tablet 100 mg PO QAM 04/03/20 03/07/23 03/01/21 06:00 cetirizine 10 mg tablet 10 mg PO QAM #30 tabs 09/04/20 03/07/23 03/01/21 06:00 diphenhydramine HCl 25 mg capsule 25 mg PO Q6H PRN itching #20 caps 09/04/20 Unknown duloxetine 60 mg capsule,delayed 60 mg PO QAM 09/04/20 03/07/23 03/01/21 06:00 release epinephrine 0.3 mg/0.3 mL 0.3 mg (0.3 mL) IM UD PRN 09/04/20 03/07/23 Unknown injection, auto-injector (EpiPen anaphylaxis #2 ea 2-Max) esomeprazole magnesium 40 mg 40 mg PO QAM 09/04/20 03/07/23 03/01/21 18:00 capsule,delayed release famotidine 20 mg tablet 20 mg PO BID #60 tabs 09/04/20 03/07/23 03/01/21 06:00 gabapentin 300 mg capsule 600 mg PO TID 09/04/20 03/07/23 03/01/21 06:00 amlodipine 5 mg tablet 10 mg PO QAM 12/22/20 03/07/23 03/01/21 06:00 aspirin 81 mg tablet,delayed 81 mg PO QDD 12/22/20 03/07/23 02/27/21 06:00 release (Ecotrin Low Strength) atorvastatin 10 mg tablet 10 mg PO QAM 12/22/20 03/07/23 03/01/21 06:00 oxycodone 5 mg tablet 5 mg PO Q6H PRN pain, severe #30 03/03/21 03/07/23 Unknown tabs tramadol 50 mg tablet 50 mg PO Q6H PRN pain, moderate 03/03/21 03/07/23 Unknown #30 tabs alfuzosin 10 mg tablet,extended 10 mg PO DAILY #90 tabs 02/03/23 03/07/23 Unknown release 24 hr (Uroxatral) sulfamethoxazole 800 1 tab PO BID 2 weeks #28 tabs 02/09/23 03/07/23 Unknown mg-trimethoprim 160 mg tablet (Bactrim DS) celecoxib 200 mg capsule (Celebrex) 200 mg PO QAM 03/07/23 03/07/23 Unknown finasteride 5 mg tablet 5 mg PO QAM 03/07/23 03/07/23 Unknown Past Medical History Medical History BPH (benign prostatic hyperplasia) Degenerative disc disease Depression Diverticular disease GERD (gastroesophageal reflux disease) Gout Hiatal hernia History of CVA (cerebrovascular accident) Remote hx found incidentally on CTS several years ago HTN (hypertension) Hx of migraines No issue x years Hyperlipidemia Osteoarthritis Peripheral neuropathy LEs Exercise / Class Metabolic Activity III < 4 Walking/Shop/Light housework (uses cane) Past Family History Family History Father Colorectal cancer Past Surgical History Surgical History History of colonoscopy History of esophagogastroduodenoscopy (EGD) History of lumbar surgery L3-S1 decompression/fusion 03/02/21: Grade view 1, MAC#3, ETT 7.5 at [facility], [place] History of tonsillectomy History of tooth extraction Hx of prostate biopsy benign Past Anesthesia History No Hx of Anesthesia Complications and No Family Hx of Anesthesia Complications History of PONV No Hx of PONV and No Hx of Motion Sickness Social History Smoking Status: Current every day smoker tobacco type: cigarettes Smoking cigarettes per day: 20 cigs/day Do You Dip or Chew Tobacco: No Hx Alcohol Use: No Hx Substance Use: Yes substance use type: marijuana (Nighttime (inhaled, for sleep)) Review of Systems Patient denies chest pain, shortness of breath, fever, chills, cough, wheezing, palpitations. Physical Exam Vital Signs VITALS BP 143/81 P 80 TEMP 98.0 SP02 97%RA RESP 16 PHYSICAL Mildly decreased cervical extension range of motion. Full TMJ range of motion. TMD 4 finger breaths Mallampati Score 2 Dentition: full upper/lower dentures Lungs: clear throughout to auscultation Cardiac: regular rate and rhythm, no murmurs noted Spine: normal Carotid arteries: negative bruit Extremities: no LE edema Lab Results Anesthesia Preop Results Results Anesthesia Widget: WBC 8.64 K/ul (4.8-10.8) 03/17/23 Hgb 14.3 g/dl (14.0-18.0) 03/17/23 Hct 40.8 % (42.0-52.0) L 03/17/23 Plt 259 K/uL (130-400) 03/17/23 Na 137 mmol/L (136-145) 03/17/23 K 3.9 mmol/L (3.5-5.1) 03/17/23 Cl 104 mmol/L (98-107) 03/17/23 CO2 26 mmol/L (21-32) 03/17/23 BUN 13 mg/dl (6-23) 03/17/23 Creat 1.04 mg/dl (0.6-1.4) 03/17/23 Glucose Level 91 mg/dl (70-99(Fasting)) 03/17/23 PT 10.3 Seconds (9.0-12.0) 03/17/23 PTT 25.9 Seconds (21.0-31.0) 03/17/23 INR 0.9 (0.9-1.1) 03/17/23 Urine Color Yellow 03/17/23 Urine Appearance Clear (Clear) 03/17/23 Urine pH 7.5 (4.5-7.5) 03/17/23 Urine Specific [place] 1.012 (1.000-1.030) 03/17/23 Urine Protein Negative (Negative) 03/17/23 Urine Glucose (UA) Negative (Negative) 03/17/23 Urine Ketones Negative (Negative) 03/17/23 Urine Blood Negative (Negative) 03/17/23 Urine Nitrite Negative (Negative) 03/17/23 Urine Bilirubin Negative (Negative) 03/17/23 Urine Urobilinogen Negative (Negative) 03/17/23 Urine Leukocyte Esterase Negative (Negative) 03/17/23 Blood Type A Positive 03/17/23 Antibody Screen NEGATIVE 03/17/23 Testing Electrocardiogram Date: 03/17/23 NSR at 72bpm. Chest X-Ray Date: 03/17/23 Findings: + NAD COVID-19 Risk Screen Screening Information COVID-19 Screen Date: 03/17/23 Exposure 21 Days Family/Household +COVID Last 21 Days: No Exposure 10 Days Any COVID Exposure Last 10 Days: No Symptoms Last 10 Days Experienced COVID Sx Last 10 Days: No + COVID 0-90 Days COVID + in Last 0-90 Days: No
[2023-03-31] MEDS ORDERED: HYDROmorphone INJ 2 MG/ML SYR/VIAL IV PRN (08:32)
[2023-03-31] MEDS ORDERED: ATROPINE SULFATE 0.1 MG/ML 10ML SYR IV PRN (08:32)
[2023-03-31] MEDS ORDERED: ePHEDrine sulfate 50 MG/ML AMP IV PRN (08:32)
[2023-03-31] MEDS ORDERED: fentaNYL citrate PF 100 MCG/2 ML VIAL IV PRN (08:32)
[2023-03-31] MEDS ORDERED: ONDANSETRON INJ 2 MG/ML 2 ML VIAL IV PRN ×2 (08:32→13:30)
[2023-03-31] MEDS ORDERED: PROPOFOL IV EMULSION 10 MG/ML 20 ML VIAL IV ONE (08:35)
[2023-03-31] MEDS ORDERED: LIDOCAINE 2% 2 ML VIAL/AMP(20MG/ML) INFIL ONE (08:36)
[2023-03-31] MEDS ORDERED: MIDAZOLAM HCL 1 MG/ML 2ML VIAL ONE (08:36)
[2023-03-31] MEDS ORDERED: fentaNYL citrate PF 100 MCG/2 ML VIAL ONE (08:36)
[2023-03-31] MEDS ORDERED: ROCURONIUM BROMIDE 10 MG/ML 5 ML VIAL IV ONE ×2 (08:36→10:52)
--- NOTE | 2023-03-31 09:01 | History & Physical Bridge Note ---
Date of Service March 31, 2023 History & Physical Bridge Note I have examined the patient, reviewed the History & Physical and in the interval since the performance of the History & Physical I have noted the following changes of clinical significance: no changes noted
--- NOTE | 2023-03-31 09:02 | History & Physical Report ---
Date of Service March 31, 2023 Assessment & Plan (1) Neurogenic claudication due to lumbar spinal stenosis: Plan: L3-L4 decompression and fusion with hardware removal L4-S1 History of Present Illness Chief Complaint: Back and leg pain Primary Care Provider: Kb Herrera DO This is a 62 old male presents with chronic system back and leg pain and failing since course of nonoperative care is here for surgical invention. Allergies Allergy/AdvReac Type Severity Reaction Status Date / Time hydrochlorothiazide Allergy Severe Swelling Verified 03/31/23 07:39 of Lip/Tongue/Throat lisinopril Allergy Severe Swelling Verified 03/31/23 07:39 of Lip/Tongue/Throat Home Medications Medication Instructions Recorded Confirmed Type allopurinol 100 mg tablet 100 mg PO QAM 04/03/20 03/31/23 History (Zyloprim) duloxetine 60 mg capsule,delayed 60 mg PO QAM 09/04/20 03/31/23 History release (Cymbalta) epinephrine 0.3 mg/0.3 mL 0.3 mg (0.3 mL) IM UD PRN 09/04/20 03/31/23 Rx injection, auto-injector (EpiPen anaphylaxis #2 ea 2-Max) esomeprazole magnesium 40 mg 40 mg PO QAM 09/04/20 03/31/23 History capsule,delayed release (Nexium) gabapentin 300 mg capsule 600 mg PO TID 09/04/20 03/31/23 History amlodipine 5 mg tablet 10 mg PO QAM 12/22/20 03/31/23 History aspirin 81 mg tablet,delayed 81 mg PO QDD 12/22/20 03/31/23 History release (Ecotrin Low Strength) atorvastatin 10 mg tablet 10 mg PO QAM 12/22/20 03/31/23 History alfuzosin 10 mg tablet,extended 10 mg PO DAILY #90 tabs 02/03/23 03/31/23 Rx release 24 hr (Uroxatral) sulfamethoxazole 800 1 tab PO BID 2 weeks #28 tabs 02/09/23 03/31/23 Rx mg-trimethoprim 160 mg tablet (Bactrim DS) celecoxib 200 mg capsule (Celebrex) 200 mg PO QAM 03/07/23 03/31/23 History finasteride 5 mg tablet 5 mg PO QAM 03/07/23 03/31/23 History cetirizine 10 mg tablet (Zyrtec) 10 mg PO QAM 03/31/23 03/31/23 History diphenhydramine HCl 25 mg capsule 25 mg PO Q6H PRN itching 03/31/23 03/31/23 History (Benadryl) famotidine 20 mg tablet (Pepcid) 20 mg PO BID 03/31/23 03/31/23 History Past Med/Surg History Medical History BPH (benign prostatic hyperplasia) Degenerative disc disease Depression Diverticular disease GERD (gastroesophageal reflux disease) Gout Hiatal hernia History of CVA (cerebrovascular accident) Remote hx found incidentally on CTS several years ago HTN (hypertension) Hx of migraines No issue x years Hyperlipidemia Osteoarthritis Peripheral neuropathy LEs Surgical History History of colonoscopy History of esophagogastroduodenoscopy (EGD) History of lumbar surgery L3-S1 decompression/fusion 03/02/21: Grade view 1, MAC#3, ETT 7.5 at [facility] History of tonsillectomy History of tooth extraction Hx of prostate biopsy benign Family History Father Colorectal cancer Social History Smoking Status: Current every day smoker Tobacco Type: Cigarettes Cigarettes Per Day: 20 cigs/day; Second Hand Exposure: Yes (in the past); Do You Dip or Chew Tobacco: No; Tobacco Cessation Education Requested by Patient: No Hx Alcohol Use: No Hx Substance Use: Yes Substance Use Type Other:: HS (for sleep) Preferred Language: Irish Communication Ability: Effective Visual Impairment: No Limitations Signal Operator Linguist Required: No Beliefs That Will Affect Care: None Current Living Situation: Significant Other Current Living Situation Comment: with girlfriend Ada Other Information That Helps Us Care for You: No Feels Safe at Home: Yes Safety Concerns: Feels Safe At This Time Assistive Devices: Cane, Denture - Upper, Denture - Lower and Glasses Assistive Devices Comment: cane prn Physical Exam Physical Exam: Patient is alert and oriented Heart regular rhythm Lungs clear Results & Data Results & Data Vital Signs (Past 12 Hours) Vital Signs Temp Pulse Resp BP Pulse Ox O2 Del Method 03/31/23 07:50 36.9 C 75 20 141/81 H 99 Room Air
[2023-03-31] MEDS ORDERED: ceFAZolin 330 MG/ML 1 GM VIAL ONE (09:27)
[2023-03-31] MEDS ORDERED: BUPIVACAINE/EPINEPHRINE 0.25% 1:200,000 30 ML VIAL ONE (09:27)
[2023-03-31] MEDS ORDERED: ePHEDrine sulfate 50 MG/ML AMP ONE ×2 (10:13→11:26)
[2023-03-31] MEDS ORDERED: FLOSEAL HEMOSTATIC MATRIX 10ML TOP ONE (10:36)
[2023-03-31] MEDS ORDERED: HYDROmorphone INJ 2 MG/ML SYR/VIAL ONE (11:51)
--- NOTE | 2023-03-31 11:53 | Operative Report ---
Post Operative Report Pre & Post Diagnosis Operation Date: 03/31/23 08:55 Pre-Op Diagnosis: Neurogenic claudication due to lumbar spinal stenosis Post-Op Diagnosis: Neurogenic claudication due to lumbar spinal stenosis I identified the patient and participated in the time-out.: Yes Procedure Operation Date: 03/31/23 08:55 Actual Procedures 1. Removal of posterior instrumentation L4-S1. #2 exploration of fusion L4-S1. #3 lumbar decompression with bilaterally facetectomies and foraminotomies L2-L3 L3-4 per #4 posterior spinal fusion L3-L4. #5 placement posterior instrumentation L3-L5 #6 interbody fusion L3-L4. #7 placement of Spira 13 x 26 mm L3-L4. #8 placement locally harvested morselized autograft in the posterior gutters. #9 placement of I factor amount of the test interbody space and posterior lateral gutters. Surgeon Leo Raman, Baseball Player Srini Arreguin Estimated Blood Loss 250 Findings Consistent with Post-Op Diagnosis Specimens none Indications This is a 62-year-old male who presents above-mentioned diagnosis and failing since course of nonoperative care is here for surgical invention. Description of Procedure Patient was met with identified informed consent obtained. Patient was then taken to the operative suite underwent ablation placed in a prone position the [place] table top Cristian frame. All bony prominences well-padded eyes inspected to ensure no external pressure for spine. This point the lumbar spine was prepped and draped in a sterile fashion. Sharp dissection with the assistance of Bovie cautery was performed down to and exposing the lamina transverse processes of L3 and the instrumentation L4-L5 and S1 levels bilaterally. Then proceeded move the hardware bilaterally noting fractures of the S1 pedicle screws but evidence of marked maturation of the bone graft in the posterior gutters. I then performed a complete laminectomy of L3 partial L2 including bilateral medial facetectomies and foraminotomies addressing severe spinal stenosis. Pedicle screws were then placed at L3 L4-5 bilaterally with assistance of fluoroscopy and the properly sized tristian contoured and placed. Bilateral transforaminal approach on the right a complete discectomy of L3-L4 was performed endplates corrected to subcortical bleeding bone and a 13 x 26 mm Spira cage with I factor tapped the position. The rods were then locked in final position bilaterally. The transverse processes of L3 3 L4 burred to subcortically bone. I factor amount of the test and locally harvested morselized graft was placed in the posterior gutters. 15 round ARIS drain inserted. The incision was then closed with 1 Vicryl to fascia 2-0 Vicryl subcutaneously and 4 Monocryl for final skin closure. Steri-Strips sterile dressing placed. Patient waken taken to PACU stable condition. Please note spinal cord monitoring was utilized at the procedure no changes noted. Lastly Srini Arreguin was present at the entire surgeon while the patient positioning complex portion of the surgery and final skin closure. I attest to the content of the Intraoperative Record and any orders documented therein. Any exceptions are noted below.
[2023-03-31] MEDS ORDERED: MAGNESIUM HYDROXIDE SUSP 30 ML UDC PO PRN (13:30)
[2023-03-31] MEDS ORDERED: PROMETHAZINE HCL 12.5 MG in SODIUM CHLORIDE 0.9% 50 ML IV PRN (13:30)
[2023-03-31] MEDS ORDERED: ACETAMINOPHEN 1,000 MG/100 ML VIAL IV PRN (13:30)
[2023-03-31] MEDS ORDERED: HYDROmorphone INJ 0.5 MG/0.5 ML SYR IV PRN (13:30)
[2023-03-31] MEDS ORDERED: NALOXONE HCL 0.4 MG/1 ML VIAL/CARP IV PRN (13:30)
[2023-03-31] MEDS ORDERED: DO NOT ADMINISTER PNEUMOCOCCAL VACCINE PRN (13:30)
[2023-03-31] MEDS ORDERED: FAMOTIDINE 20 MG TAB PO PRN (13:30)
[2023-03-31] MEDS ORDERED: LORazepam 2 MG/1 ML VIAL IV PRN (13:30)
[2023-03-31] MEDS ORDERED: ONDANSETRON 4 MG OD TAB PO PRN (13:30)
[2023-03-31] MEDS ORDERED: ALUMINUM/MAGNESIUM SUSP 30 ML UDC PO PRN (13:30)
[2023-03-31] MEDS ORDERED: LORazepam 0.5 MG TAB PO PRN (13:30)
[2023-03-31] MEDS ORDERED: bisacodyL 10 MG SUPP PR PRN (13:30)
[2023-03-31] MEDS ORDERED: ACETAMINOPHEN 500 MG TAB PO PRN (13:30)
[2023-03-31] MEDS ORDERED: DO NOT ADMINISTER FLU VACCINE PRN (13:30)
[2023-03-31] MEDS ORDERED: METOCLOPRAMIDE HCL INJ 5 MG/ML 2 ML VIAL IV PRN (13:30)
[2023-03-31] MEDS ORDERED: HYDROmorphone INJ 1 MG/ML SYRINGE IV PRN (13:30)
[2023-03-31] MEDS ORDERED: hydrOXYzine HCl 25 MG TAB PO PRN (13:30)
[2023-03-31] MEDS ORDERED: diphenhydrAMINE Capsule 25 MG CAP PO PRN ×2 (13:30)
[2023-03-31] MEDS ORDERED: SOD PHOSPHATE/SOD BIPHOSPHATE ENEMA 132 ML BTL PR PRN (13:30)
[2023-03-31] MEDS ORDERED: traMADol HCL 50 MG TABLET PO PRN (13:30)
[2023-03-31] MEDS: LACTATED RINGER'S 1,000 ML IV SCH ×2 (13:54→18:33)
[2023-03-31] MEDS ORDERED: EPINEPHrine INJ 1 MG/ML AMP IM PRN (13:56)
--- NOTE | 2023-03-31 14:05 | Fluoroscopy Report ---
FL lumbar spine 2-3V CLINICAL HISTORY: L3-4 DFI COMPARISON STUDY: Lumbar spine fluoroscopic images March 02, 2021. FLUOROSCOPY TIME: 10 seconds. dee Castellanos: 6.88 mGy FLUOROSCOPIC IMAGES: 2 FINDINGS: Fluoroscopy was provided during hardware removal. Previous L5-S1 spacer is noted as well as portions of the S1 pedicle screws. Posterior decompression is noted with interval L3-L4 discectomy w ith interbody spacer placement. There are bilateral pedicle screws at the L3, L4 and L5 levels. The h ardware is intact. IMPRESSION: Fluoroscopy provided during hardware removal, L3-L4 discectomy, posterior decompression and L3-L5 pedicle screw fusion. ACT 112: Negative or not required by law. Electronically signed by: Mauricio Ashraf M.D. 03/31/2023 2:03 PM
[2023-03-31] MEDS: GABAPENTIN 300 MG CAP PO SCH ×2 (14:09→20:36)
--- NOTE | 2023-03-31 14:13 | Hospitalist Consultation ---
Date of Consultation March 31, 2023 Assessment & Plan (1) S/P spinal surgery: (2) BPH with obstruction/lower urinary tract symptoms: (3) Neurogenic claudication due to lumbar spinal stenosis: (4) GERD (gastroesophageal reflux disease): (5) Depression: (6) HTN (hypertension): (7) Hyperlipidemia: (8) Tobacco use: Plan This is a 62yo M with a PMH of hypertension, history of CVA, tobacco use disorder, prediabetes, history of migraine headaches, depression, BPH and spinal stenosis of lumbar region who is s/p POD #0 s/p removal of posterior instrumentation L4-S1, lumbar decompression and fusion L2-L5 by Dr. Raman. S/p spinal surgery POD #0 s/p removal of posterior instrumentation L4-S1, lumbar decompression and fusion L2-L5 by Dr. Raman Per ortho for pain control, wound care, anticoagulation and activities Monitor H&H (pre-op hgb 14.3), continue incentive spirometry, PT/OT when appropriate HTN Normotensive. Continue amlodipine, alfuzosin BPH Continue finasteride, alfuzosin Tobacco use disorder Nicotine patch ordered, interested in cessation Pre-diabetes Will obtain a1c, carb consistent diet Depression Continue Cymbalta DVT Ppx: SCDs Code status: FULL PCP: Minor Dispo: Per primary service Patient seen in collaboration with Dr. Villeda. Please see addendum. I spent a total of 60 minutes coordinating, documenting, and providing care for this patient excluding time spent in the performance of separately billed services. Supervising Physician Co-Signing Physician Notes I have seen and examined the patient and have discussed the case with the provider above. I agree with the assessment and plan as stated. 62 yo M POD# 0 s/p lumbar surgery. Doing well, pain is controlled. He reports that his preop right leg pain is now resolved post operatively and "I could just hug Dr. Raman." Physical exam as above. Medications reviewed. Cont plan as outlined above. Thank you for this consultation. DO Ronal History of Present Illness Reason for Consultation: post op med mgmt Attending Physician: Leo Raman DO History of Present Illness This is a 62yo M with a PMH of hypertension, history of CVA, tobacco use di sorder, prediabetes, history of migraine headaches, depression, BPH and spinal stenosis of lumbar region who is s/p POD #0 s/p removal of posterior instrumentation L4-S1, lumbar decompression and fusion L2-L5 by Dr. Raman. Patient is comfortable postoperatively with some discomfort at surgical site but denies any margairta pain at this time. Neurogenic pain in bilateral lower extremities has improved since surgery. Denies any paresthesias. Tolerating clear liquid diet without issue. Denies any nausea, vomiting or abdominal pain. No fever, chills, lightheadedness, chest pain, shortness of breath. Erazo catheter in place. No diarrhea. History of previous spinal surgery L1-L3 in 2020. Follow[address] Gaxiola in clinic. Currently smokes 1 pack a day but is interested in using this opportunity to quit. Recently completed 2 week course of Bactrim for prostatitis. Allergies Allergy/AdvReac Type Severity Reaction Status Date / Time hydrochlorothiazide Allergy Severe Swelling Verified 03/31/23 07:39 of Lip/Tongue/Throat lisinopril Allergy Severe Swelling Verified 03/31/23 07:39 of Lip/Tongue/Throat Home Medications Medication Instructions Recorded Confirmed Type allopurinol 100 mg tablet 100 mg PO QAM 04/03/20 03/31/23 History (Zyloprim) duloxetine 60 mg capsule,delayed 60 mg PO QAM 09/04/20 03/31/23 History release (Cymbalta) epinephrine 0.3 mg/0.3 mL 0.3 mg (0.3 mL) IM UD PRN 09/04/20 03/31/23 Rx injection, auto-injector (EpiPen anaphylaxis #2 ea 2-Max) esomeprazole magnesium 40 mg 40 mg PO QAM 09/04/20 03/31/23 History capsule,delayed release (Nexium) gabapentin 300 mg capsule 600 mg PO TID 09/04/20 03/31/23 History amlodipine 5 mg tablet 10 mg PO QAM 12/22/20 03/31/23 History aspirin 81 mg tablet,delayed 81 mg PO QDD 12/22/20 03/31/23 History release (Ecotrin Low Strength) atorvastatin 10 mg tablet 10 mg PO QAM 12/22/20 03/31/23 History alfuzosin 10 mg tablet,extended 10 mg PO DAILY #90 tabs 02/03/23 03/31/23 Rx release 24 hr (Uroxatral) celecoxib 200 mg capsule (Celebrex) 200 mg PO QAM 03/07/23 03/31/23 History finasteride 5 mg tablet 5 mg PO QAM 03/07/23 03/31/23 History cetirizine 10 mg tablet (Zyrtec) 10 mg PO QAM 03/31/23 03/31/23 History diphenhydramine HCl 25 mg capsule 25 mg PO Q6H PRN itching 03/31/23 03/31/23 History (Benadryl) famotidine 20 mg tablet (Pepcid) 20 mg PO BID 03/31/23 03/31/23 History Patient History Medical History BPH (benign prostatic hyperplasia) Degenerative disc disease Depression Diverticular disease GERD (gastroesophageal reflux disease) Gout Hiatal hernia History of CVA (cerebrovascular accident) Remote hx found incidentally on CTS several years ago HTN (hypertension) Hx of migraines No issue x years Hyperlipidemia Osteoarthritis Peripheral neuropathy LEs Surgical History History of colonoscopy History of esophagogastroduodenoscopy (EGD) History of lumbar surgery L3-S1 decompression/fusion 03/02/21: Grade view 1, MAC#3, ETT 7.5 at [facility] History of tonsillectomy History of tooth extraction Hx of prostate biopsy benign Family History Father Colorectal cancer Social History Smoking Status: Current every day smoker Tobacco Type: Cigarettes Cigarettes Per Day: 20 cigs/day; Second Hand Exposure: Yes (in the past); Do You Dip or Chew Tobacco: No; Tobacco Cessation Education Requested by Patient: No Hx Alcohol Use: No Hx Substance Use: Yes Substance Use Type Other:: HS (for sleep) Preferred Language: Vietnamese Communication Ability: Effective Visual Impairment: No Limitations Mixing Pan Tender Required: No Beliefs That Will Affect Care: None Current Living Situation: Significant Other Current Living Situation Comment: with girlfriend Ada Other Information That Helps Us Care for You: No Feels Safe at Home: Yes Safety Concerns: Feels Safe At This Time Assistive Devices: Cane, Denture - Upper, Denture - Lower, Glasses, Walker and Wheelchair Assistive Devices Comment: cane prn Review of Systems Review of Systems: At least ten systems reviewed and negative except as noted in the HPI. Physical Exam Physical Exam: General Appearance: WD/WN, vitals as above, NAD, sitting up in bed, pleasant, conversing easily Head: normocephalic, atraumatic Eyes: normal inspection, PERRL, conjunctivae normal, anicteric sclerae ENT: external ear and nose normal, oropharynx normal Neck: normal visual inspection, trachea midline, no thyromegaly Respiratory: normal respiratory effort, lungs clear to auscultation, no wheeze, rales, rhonchi. No accessory muscle use Cardiovascular: regular rate, rhythm, no murmur, normal peripheral pulses, no BLE edema Abdomen/GI: normal bowel sounds, soft, nontender, no hepatosplenomegaly Extremities/Musculoskeletal: +spinal dressing c/d/i. +ARIS drain with serosanguineous output. No cyanosis or clubbing, extremities motor strength 5/5 Neurologic: PERRL, CN's II-XI intact bilaterally and moves all extremities Psychiatric: A+Ox3, euthymic affect Skin: no rashes, normal color, warm/dry Results & Data Results & Data Vital Signs (Past 12 Hours) Vital Signs Temp Pulse Pulse Resp BP BP Pulse Ox 03/31/23 13:59 36.5 C 84 17 115/70 96 03/31/23 13:30 36.7 C 76 18 128/64 95 03/31/23 13:00 79 18 116/61 94 03/31/23 12:50 36.6 C 80 20 121/68 94 03/31/23 12:40 82 14 121/70 94 03/31/23 12:30 92 H 14 133/72 98 03/31/23 12:23 36.3 C L 76 17 132/76 99 03/31/23 07:50 36.9 C 75 20 141/81 H 99 O2 Del Method O2 Flow Rate 03/31/23 13:59 Room Air 03/31/23 13:30 Room Air 03/31/23 13:00 Room Air 03/31/23 12:50 Room Air 03/31/23 12:40 Room Air 03/31/23 12:30 Room Air 03/31/23 12:23 Oxymask 6 03/31/23 07:50 Room Air Laboratory Results pre-op hgb 14.3 Diagnostic Findings Lumbar Spine X-Ray 03/31/23 08:55 FL lumbar spine 2-3V CLINICAL HISTORY: L3-4 DFI COMPARISON STUDY: Lumbar spine fluoroscopic images March 02, 2021. FLUOROSCOPY TIME: 10 seconds. Ka, r: 6.88 mGy FLUOROSCOPIC IMAGES: 2 FINDINGS: Fluoroscopy was provided during hardware removal. Previous L5-S1 spacer is noted as well as portions of the S1 pedicle screws. Posterior decompression is noted with interval L3-L4 discectomy with interbody spacer placement. There are bilateral pedicle screws at the L3, L4 and L5 levels. The hardware is intact. IMPRESSION: Fluoroscopy provided during hardware removal, L3-L4 discectomy, posterior decompression and L3-L5 pedicle screw fusion. ACT 112: Negative or not required by law. Electronically signed by: Mauricio Ashraf M.D. 03/31/2023 2:03 PM
[2023-03-31] MEDS ORDERED: NICOTINE 21 MG/24 HR TDSY TD ONE (14:38)
--- NOTE | 2023-03-31 15:08 | Anesthesiology Progress Note ---
Date of Service March 31, 2023 Anesthesia Post Procedure Vital Signs Vital Signs: Temp Pulse Pulse Resp BP BP Pulse Ox 03/31/23 14:27 98.1 F 85 17 119/69 96 03/31/23 13:59 97.7 F 84 17 115/70 96 03/31/23 13:30 98.1 F 76 18 128/64 95 03/31/23 13:00 79 18 116/61 94 03/31/23 12:50 97.9 F 80 20 121/68 94 03/31/23 12:40 82 14 121/70 94 03/31/23 12:30 92 H 14 133/72 98 03/31/23 12:23 97.3 F L 76 17 132/76 99 03/31/23 07:50 98.4 F 75 20 141/81 H 99 O2 Del Method O2 Flow Rate 03/31/23 14:27 Room Air 03/31/23 13:59 Room Air 03/31/23 13:30 Room Air 03/31/23 13:00 Room Air 03/31/23 12:50 Room Air 03/31/23 12:40 Room Air 03/31/23 12:30 Room Air 03/31/23 12:23 Oxymask 6 03/31/23 07:50 Room Air Pain Intensity Back: Pain Intensity: 2 Bilateral Leg: Pain Intensity: 10 Transfer of Care Handoff Completed per policy Notes Mental Status: alert / awake / arousable and participated in evaluation Patient Amnestic to Procedure: Yes Nausea / Vomiting: adequately controlled Pain: adequately controlled Airway Patency, RR, SpO2: stable & adequate BP & HR: stable & adequate Hydration State: stable & adequate Anesthetic Complications: no major complications apparent and Pt Satisfied with anesthetic care
[2023-03-31] MEDS: ASPIRIN 81 MG ECTAB PO SCH (16:38)
[2023-03-31] MEDS: ceFAZolin 2000MG 2,000 MG/15 ML SYR IV SCH (17:36)
[2023-03-31] MEDS: oxyCODONE HCL IR 5 MG TAB (IMMEDIATE RELEASE) PO PRN (18:40)
[2023-03-31] MEDS: FAMOTIDINE 20 MG TAB PO SCH (20:35)
[2023-03-31] MEDS: DOCUSATE SODIUM/SENNA 50/8.6MG TAB PO SCH (20:36)
[2023-04-01] MEDS: oxyCODONE HCL IR 5 MG TAB (IMMEDIATE RELEASE) PO PRN (00:50)
[2023-04-01] MEDS: LACTATED RINGER'S 1,000 ML IV SCH (00:50)
[2023-04-01] MEDS: ceFAZolin 2000MG 2,000 MG/15 ML SYR IV SCH (00:51)
[2023-04-01] MEDS: POLYETHYLENE (MIRALAX) 17 GM PACK PO SCH ×3 (05:48→18:00)
[2023-04-01 06:42] LABS: Basophils # (auto) 0.01 K/uL (0-0.2); Basophils % (auto) 0.1 %; Hematocrit (blood only) 33.5 % (42.0-52.0); Hemoglobin 11.7 g/dl (14.0-18.0); Immature Granulocytes # (auto) 0.09 K/uL (0.01-0.20); Immature Granulocytes % (auto) 0.5 %; Lymphocytes % (auto) 6.3 %; Mean Corpuscular Hgb Conc 34.9 g/dL (32.0-36.0); Mean Corpuscular Volume 88.6 fL (80.0-100.0); Mean Platelet Volume 10.1 fL (9.4-12.4); Monocytes # (auto) 0.78 K/uL (0.11-0.59); Monocytes % (auto) 4.5 %; Neutrophils # (auto) 15.51 K/uL (1.40-6.50); Neutrophils % (auto) 88.6 %; Platelet Count 213 K/uL (130-400); RDW Coefficient of Variation 12.7 % (11.5-14.5); Red Blood Count 3.78 M/uL (4.70-6.10); White Blood Count 17.49 K/ul (4.8-10.8)
[2023-04-01 07:00] LABS: BUN Creatinine Ratio 18.1 (10-20); Calcium 8.9 mg/dl (8.6-10.3); Creatinine Clr Calc Pharmacy 90.2 ml/min; Est GFR (African American) 98.9 ml/min; Est GFR (Non-African American) 85.3 ml/min; Potassium 3.9 mmol/L (3.5-5.1)
[2023-04-01] MEDS: FAMOTIDINE 20 MG TAB PO SCH ×2 (08:07→20:13)
[2023-04-01] MEDS: FINASTERIDE 5 MG TAB PO SCH (08:07)
[2023-04-01] MEDS: amLODIPine BESYLATE 5 MG TAB PO SCH (08:08)
[2023-04-01] MEDS: CETIRIZINE HCL 10 MG TABLET PO SCH (08:08)
[2023-04-01] MEDS: GABAPENTIN 300 MG CAP PO SCH ×3 (08:09→20:14)
[2023-04-01] MEDS: ATORVASTATIN 10 MG TAB PO SCH (08:09)
[2023-04-01] MEDS: PANTOprazole 40 MG TAB PO SCH (08:10)
[2023-04-01] MEDS: DULoxetine HCL 60 MG CAP PO SCH (08:10)
[2023-04-01] MEDS: allopurinoL 100 MG TAB PO SCH (08:10)
[2023-04-01] MEDS: NICOTINE 21 MG/24 HR TDSY TD SCH (08:14)
[2023-04-01] MEDS: dexAMETHasone 6 MG in SYRINGE 0 ML IV SCH (08:16)
[2023-04-01] MEDS: TAMSULOSIN HCL 0.4 MG CAP PO SCH (08:38)
--- NOTE | 2023-04-01 10:59 | Orthopedic Progress Note ---
Date of Service April 01, 2023 Assessment & Plan (1) Neurogenic claudication due to lumbar spinal stenosis: Plan: At this time we will continue physical therapy monitor his ARIS output. He has expressed interest in being discharged tomorrow. This is is acceptable most likely will be discharged home with his drains in place and have him follow-up in the office next Monday or Monday for removal. Admission and Anticipated Discharge Date Admission Date: March 31, 2023 Subjective Back pain is controlled leg symptoms markedly improved Physical Exam Physical Exam: Patient is in the chair at the bedside. Is constricted testing. Results & Data Vital Signs (Past 12 Hours) Vital Signs Temp Pulse Resp BP Pulse Ox O2 Del Method 04/01/23 07:15 36.5 C 77 16 134/76 95 Room Air 04/01/23 03:52 36.6 C 80 16 116/68 96 Room Air
--- NOTE | 2023-04-01 14:15 | Hospitalist Progress Note ---
Date of Service April 01, 2023 Assessment & Plan (1) S/P spinal surgery: (2) BPH with obstruction/lower urinary tract symptoms: (3) Neurogenic claudication due to lumbar spinal stenosis: (4) GERD (gastroesophageal reflux disease): (5) Depression: (6) HTN (hypertension): (7) Hyperlipidemia: (8) Tobacco use: Plan This is a 62yo M with a PMH of hypertension, history of CVA, tobacco use disorder, prediabetes, history of migraine headaches, depression, BPH and spinal stenosis of lumbar region who is s/p elective lumbar spinal surgery by Dr. Raman on 03/31 Lumbar spinal stenosis with neurogenic claudication s/p spinal surgery 03/31 POD #1 s/p removal of posterior instrumentation L4-S1, lumbar decompression and fusion L2-L5 by Dr. Raman Pain management, DVT ppx, activities per ortho HTN-BP stable, continue home amlodipine, alfuzosin BPH- Continue finasteride, alfuzosin Tobacco use disorder-continue nicotine patch, interested in cessation Depression - Continue Cymbalta Leukocytosis-likely reactive due to steroid, recheck in a.m. patient looks well, afebrile and no source of infection DVT Ppx: Per primary team Dispo: Per primary service Admission and Anticipated Discharge Date Admission Date: March 31, 2023 Subjective Patient was seen and examined at bedside. He feels good. Pain is controlled. Tolerating diet without issues. He would like the Erazo to come out. No fever, chills, chest pain or shortness of breath, nausea or vomiting. Passed gas, no bowel movement yet. Review of Systems Review of Systems: All systems reviewed & are unremarkable except as noted in Subjective Physical Exam 2 Physical Exam: General: Sitting comfortably in chair, not in distress, on room air HEENT: EOMI, NATI, MMM Chest: Clear breath sounds bilaterally, no wheezes or crackles CVS: Regular rate and rhythm, normal heart sounds, no murmur Abdomen: Soft, non tender, not distended, normal bowel sounds Neuro: Awake, alert, oriented, conversing well, non focal Extremities: No cyanosis, clubbing or edema MSK: Back dressing intact-ARIS drain with serosanguineous output : Erazo with clear urine Results & Data Results & Data Vital Signs (Past 12 Hours) Vital Signs Temp Pulse Resp BP Pulse Ox O2 Del Method 04/01/23 11:00 36.4 C L 74 16 145/80 H 99 Room Air 04/01/23 07:15 36.5 C 77 16 134/76 95 Room Air 04/01/23 03:52 36.6 C 80 16 116/68 96 Room Air Laboratory Results Short CBC 04/01/23 Range/Units 06:26 WBC 17.49 H (4.8-10.8) K/ul Hgb 11.7 L (14.0-18.0) g/dl Hct 33.5 L (42.0-52.0) % Plt Count 213 (130-400) K/uL BMP 04/01/23 06:26 Sodium 137 Potassium 3.9 Chloride 105 Carbon Dioxide 27 BUN 17 Creatinine 0.94 Glucose 146 H Calcium 8.9 Medications Administered Current Inpatient Medications Acetaminophen (Acetaminophen 500 Mg Tab) 1,000 mg PO Q8H PRN PRN Reason: MILD Pain Scale 1,2,3 & Pre PT Stop: 04/30/23 13:29 Al Hydrox/Mg Hydrox/Simethicone (Aluminum/Magnesium Susp 30 Ml Udc) 30 ml PO Q6H PRN PRN Reason: Dyspepsia Stop: 04/30/23 13:29 Allopurinol (Allopurinol 100 Mg Tab) 100 mg PO [facility] Stop: 05/01/23 08:59 Last Admin: 04/01/23 08:10 Dose: 100 mg Amlodipine Besylate ([facility]ylate 5 Mg Tab) [facility] Stop: 05/01/23 08:59 Last Admin: 04/01/23 08:08 Dose: 10 mg Aspirin (Aspirin 81 Mg Ectab) 81 mg PO QDD [facility] Stop: 04/30/23 16:29 Last Admin: 03/31/23 16:38 Dose: 81 mg Atorvastatin Calcium ([facility]orvastatin 10 Mg Tab) [facility] Stop: 05/01/23 08:59 Last Admin: 04/01/23 08:09 Dose: 10 mg Bisacodyl (Bisacodyl 10 Mg Supp) 10 mg [place] DAILY PRN PRN Reason: Constipation Stop: 04/30/23 13:29 Cetirizine HCl (Cetirizine Hcl 10 Mg Tablet) [facility] Stop: 05/01/23 08:59 Last Admin: 04/01/23 08:08 Dose: 10 mg Diphenhydramine HCl (Diphenhydramine Capsule 25 Mg Cap) 25 mg PO Q6H PRN PRN Reason: itching Stop: 04/30/23 13:29 Duloxetine HCl (Duloxetine Hcl 60 Mg Cap) 60 mg PO QAM [facility] Stop: 05/01/23 08:59 Last Admin: 04/01/23 08:10 Dose: 60 mg Epinephrine HCl (Epinephrine Inj 1 Mg/Ml Amp) 0.3 mg IM UD PRN PRN Reason: anaphylaxis Stop: 04/30/23 13:55 Famotidine (Famotidine 20 Mg Tab) 20 mg PO BID [facility] Stop: 04/30/23 20:59 Last Admin: 04/01/23 08:07 Dose: 20 mg Famotidine (Famotidine 20 Mg Tab) 20 mg PO Q12H PRN PRN Reason: Dyspepsia Stop: 04/30/23 13:29 Finasteride (Finasteride 5 Mg Tab) 5 mg PO QAM [facility] Stop: 05/01/23 08:59 Last Admin: 04/01/23 08:07 Dose: 5 mg Gabapentin (Gabapentin 300 Mg Cap) 600 mg PO TID [facility] Stop: 04/30/23 13:59 Last Admin: 04/01/23 13:48 Dose: 600 mg Hydromorphone HCl (Hydromorphone Inj 0.5 Mg/0.5 Ml Syr) 0.5 mg IV Q3H PRN PRN Reason: MODERATE Pain (Scale 4,5,6) & Pre PT Stop: 04/14/23 13:29 Hydromorphone HCl (Hydromorphone Inj 1 Mg/Ml Syringe) 1 mg IV Q3H PRN PRN Reason: SEVERE Pain (Scale 7,8,9,10) Stop: 04/14/23 13:29 Hydroxyzine HCl (Hydroxyzine Hcl 25 Mg Tab) 25 mg PO Q8H PRN PRN Reason: Anxiety Stop: 04/30/23 13:29 Promethazine HCl 12.5 mg/ (Sodium Chloride) 50.5 mls @ 202 mls/hr IV Q6H PRN PRN Reason: Nausea &/or Vomiting Stop: 04/30/23 13:29 Dexamethasone 6 mg/ Syringe 1.5 mls @ 1 mls/min IV DAILY [facility] Stop: 04/03/23 09:02 Last Admin: 04/01/23 08:16 Dose: 1 mls/min Influenza Virus Vaccine Quadrival (Do Not Administer Flu Vaccine) 1 each N/A PRN PRN PRN Reason: Notification Stop: 04/30/23 13:29 Lorazepam (Lorazepam 0.5 Mg Tab) 0.5 mg PO Q8H PRN PRN Reason: Sedation/Anxiety Stop: 04/30/23 13:29 Lorazepam (Lorazepam 2 Mg/1 Ml Vial) 0.5 mg IV Q8H PRN PRN Reason: Sedation/Anxiety Stop: 04/30/23 13:29 Magnesium Hydroxide (Magnesium Hydroxide Susp 30 Ml Udc) 30 ml PO Q24H PRN PRN Reason: Constipation Stop: 04/30/23 13:29 Metoclopramide HCl (Metoclopramide Hcl Inj 5 Mg/Ml 2 Ml Vial) 10 mg IV Q6H PRN PRN Reason: Nausea &/or Vomiting Stop: 04/30/23 13:29 Miscellaneous (Remove Nicoderm Patch) 1 each N/A DAILY@0859 [facility] Stop: 05/01/23 08:58 Last Admin: 04/01/23 08:06 Dose: 1 each Naloxone HCl (Naloxone Hcl 0.4 Mg/1 Ml Vial/Carp) 0.1 mg IV Q5M PRN PRN Reason: Oversedation/Resp depression Stop: 04/30/23 13:29 Nicotine (Nicotine 21 Mg/24 Hr Tdsy) 21 mg TD DAILY [facility] Stop: 05/01/23 08:59 Last Admin: 04/01/23 08:14 Dose: 21 mg Ondansetron HCl (Ondansetron Inj 2 Mg/Ml 2 Ml Vial) 4 mg IV Q6H PRN PRN Reason: Nausea &/or Vomiting Stop: 04/30/23 13:29 Ondansetron HCl (Ondansetron 4 Mg Od Tab) 4 mg PO Q6H PRN PRN Reason: Nausea Stop: 04/30/23 13:29 Oxycodone HCl (Oxycodone Hcl Ir 5 Mg Tab (Immediate Release)) 5 - 10 mg PO Q4H PRN PRN Reason: Pain & Pre PT Stop: 04/14/23 13:29 Last Admin: 04/01/23 00:50 Dose: 10 mg Pantoprazole Sodium (Pantoprazole 40 Mg Tab) 40 mg PO QAM [facility] Stop: 05/01/23 08:59 Last Admin: 04/01/23 08:10 Dose: 40 mg Pneumococcal Polyvalent Vaccine (Do Not Administer Pneumococcal Vaccine) 1 each N/A PRN PRN PRN Reason: Notification Stop: 04/30/23 13:29 Polyethylene Glycol (Polyethylene (Miralax) 17 Gm Pack) 17 gm PO Q6 [facility] Stop: 05/01/23 05:59 Last Admin: 04/01/23 11:29 Dose: 17 gm Senna/Docusate Sodium (Docusate Sodium/Senna 50/8.6mg Tab) 2 tab PO HS [facility] Stop: 04/30/23 20:59 Last Admin: 03/31/23 20:36 Dose: 2 tab Sodium Biphosphate/Sodium Phosphate (Sod Phosphate/Sod Biphosphate Enema 132 Ml Btl) 132 ml [place] ONE PRN PRN Reason: Constipation Stop: 04/30/23 13:29 Tamsulosin HCl (Tamsulosin Hcl 0.4 Mg Cap) 0.4 mg PO DAILY [facility] Stop: 05/01/23 08:59 Last Admin: 04/01/23 08:38 Dose: 0.4 mg Tramadol HCl (Tramadol Hcl 50 Mg Tablet) 50 - 100 mg PO Q4H PRN PRN Reason: Moderate-Severe pain & Pre PT Stop: 04/30/23 13:29
[2023-04-01] MEDS: ASPIRIN 81 MG ECTAB PO SCH (16:35)
[2023-04-01] MEDS: DOCUSATE SODIUM/SENNA 50/8.6MG TAB PO SCH (20:13)
[2023-04-02] MEDS: POLYETHYLENE (MIRALAX) 17 GM PACK PO SCH ×2 (00:09→06:34)
[2023-04-02 07:30] LABS: Hematocrit (blood only) 34.8 % (42.0-52.0); Hemoglobin 12.1 g/dl (14.0-18.0); Mean Corpuscular Hemoglobin 30.6 pg (25.0-34.0); Mean Corpuscular Hgb Conc 34.8 g/dL (32.0-36.0); Mean Corpuscular Volume 88.1 fL (80.0-100.0); Mean Platelet Volume 10.7 fL (9.4-12.4); Platelet Count 239 K/uL (130-400); RDW Coefficient of Variation 12.9 % (11.5-14.5); RDW Standard Deviation 42.2 fL (36.4-46.3); Red Blood Count 3.95 M/uL (4.70-6.10); White Blood Count 16.61 K/ul (4.8-10.8)
--- NOTE | 2023-04-02 07:41 | Discharge Summary ---
Date of Service April 02, 2023 Admission HPI Per Admitting Provider This is a 62 old male presents with chronic system back and leg pain and failing since course of nonoperative care is here for surgical invention. Discharge Data Consultations 03/31/23 13:30 Consult Hospitalist Routine Procedures Performed Operation Date: 03/31/23 08:55 Actual Procedures p L3-L4 Decompression and Fusion with , Spinal Cord Monitoring(Not Applicable) - Leo Raman DO s hardware removal L4-S1(Not Applicable) - Leo Raman DO Hospital Course (1) Neurogenic claudication due to lumbar spinal stenosis: Patient is a pleasant 62-year-old male with history physical examination radiographic images consistent with the above-mentioned diagnosis. For this reason is brought to the operating room and undergone a lumbar decompression at L3-4 with removal of previous hardware from L4 to sacrum. He left the operating room with a ARIS drain and Erazo in place and is transferred to PACU in stable condition. He is then transferred to the orthopedic floor. He is placed on GI DVT prophylaxis. He was seen by physical therapy postoperative day #1. Throughout his hospital course his calves remained supple nontender his dressings remain clean dry and intact. Postoperative day #2 he was deemed safe for home discharge. We are going to maintain his ARIS drain he will have that removed in the office either Monday or Monday depending on the drainage. He is lift nothing heavier than 5 to 7 pounds he should change positions frequently. He should not shower while the ARIS drain is in place. They may change dressing once daily until there is no more drainage. He should not drive until he is seen in the office in 2 weeks. He is to be seen for his postoperative visit in 2 weeks or sooner if he developed any increased pain, increased numbness or tingling, or severe drainage.
[2023-04-02 07:52] LABS: Calcium 9.2 mg/dl (8.6-10.3); Creatinine Clr Calc Pharmacy 92.2 ml/min; Est GFR (African American) 101.5 ml/min; Est GFR (Non-African American) 87.6 ml/min; Potassium 3.9 mmol/L (3.5-5.1)
[2023-04-02] MEDS: amLODIPine BESYLATE 5 MG TAB PO SCH (08:08)
[2023-04-02] MEDS: FAMOTIDINE 20 MG TAB PO SCH (08:08)
[2023-04-02] MEDS: CETIRIZINE HCL 10 MG TABLET PO SCH (08:08)
[2023-04-02] MEDS: PANTOprazole 40 MG TAB PO SCH (08:10)
[2023-04-02] MEDS: DULoxetine HCL 60 MG CAP PO SCH (08:10)
[2023-04-02] MEDS: TAMSULOSIN HCL 0.4 MG CAP PO SCH (08:10)
[2023-04-02] MEDS: ATORVASTATIN 10 MG TAB PO SCH (08:11)
[2023-04-02] MEDS: FINASTERIDE 5 MG TAB PO SCH (08:11)
[2023-04-02] MEDS: GABAPENTIN 300 MG CAP PO SCH (08:11)
[2023-04-02] MEDS: allopurinoL 100 MG TAB PO SCH (08:12)
[2023-04-02] MEDS: NICOTINE 21 MG/24 HR TDSY TD SCH (08:13)
[2023-04-02] MEDS: dexAMETHasone 6 MG in SYRINGE 0 ML IV SCH (08:20)
--- NOTE | 2023-04-02 10:13 | Hospitalist Progress Note ---
Date of Service April 02, 2023 Assessment & Plan (1) S/P spinal surgery: (2) BPH with obstruction/lower urinary tract symptoms: (3) Neurogenic claudication due to lumbar spinal stenosis: (4) GERD (gastroesophageal reflux disease): (5) Depression: (6) HTN (hypertension): (7) Hyperlipidemia: (8) Tobacco use: Plan This is a 62yo M with a PMH of hypertension, history of CVA, tobacco use disorder, prediabetes, history of migraine headaches, depression, BPH and spinal stenosis of lumbar region who is s/p elective lumbar spinal surgery by Dr. Raman on 03/31 Lumbar spinal stenosis with neurogenic claudication s/p spinal surgery 03/31 POD #2 s/p removal of posterior instrumentation L4-S1, lumbar decompression and fusion L2-L5 by Dr. Raman Pain management, DVT ppx, activities per ortho HTN-BP stable, continue home amlodipine, alfuzosin BPH- Continue finasteride, alfuzosin Tobacco use disorder-continue nicotine patch, interested in cessation. He does have have nicotine patch at home Depression - Continue Cymbalta Leukocytosis-likely reactive due to steroid, improving. patient looks well, afebrile and no source of infection DVT Ppx: Per primary team Dispo: Per primary service. Patient is stable from hospitalist perspective. Admission and Anticipated Discharge Date Admission Date: March 31, 2023 Subjective Patient was seen and examined at bedside. He feels good and ready to go home. States has been ambulating around the james. Pain is controlled and he has not required much pain medicine. Voiding without issues. Passing gas no bowel movement yet. States he has nicotine patch at home that his PCP provided. No fever, chills, chest pain or shortness of breath, nausea or vomiting Physical Exam Physical Exam: General: Sitting comfortably in bed, not in distress, on room air HEENT: EOMI, NATI, MMM Chest: Clear breath sounds bilaterally, no wheezes or crackles CVS: Regular rate and rhythm, normal heart sounds, no murmur Abdomen: Soft, non tender, not distended, normal bowel sounds Neuro: Awake, alert, oriented, conversing well, non focal Extremities: No cyanosis, clubbing or edema MSK: Back dressing intact-ARIS drain with serosanguineous output Results & Data Results & Data Vital Signs (Past 12 Hours) Vital Signs Temp Pulse Resp BP Pulse Ox O2 Del Method 04/02/23 07:46 36.5 C 83 18 126/86 97 Room Air 04/02/23 03:20 36.5 C 76 18 112/59 L 97 Room Air 04/01/23 23:01 36.6 C 74 18 104/61 96 Room Air Laboratory Results Short CBC 04/02/23 Range/Units 06:47 WBC 16.61 H (4.8-10.8) K/ul Hgb 12.1 L (14.0-18.0) g/dl Hct 34.8 L (42.0-52.0) % Plt Count 239 (130-400) K/uL BMP 04/02/23 06:47 Sodium 137 Potassium 3.9 Chloride 104 Carbon Dioxide 28 BUN 23 Creatinine 0.92 Glucose 142 H Calcium 9.2 Medications Administered Current Inpatient Medications Acetaminophen (Acetaminophen 500 Mg Tab) 1,000 mg PO Q8H PRN PRN Reason: MILD Pain Scale 1,2,3 & Pre PT Stop: 04/30/23 13:29 Al Hydrox/Mg Hydrox/Simethicone (Aluminum/Magnesium Susp 30 Ml Udc) 30 ml PO Q6H PRN PRN Reason: Dyspepsia Stop: 04/30/23 13:29 Allopurinol ([facility]ol 100 Mg Tab) [facility] [place] Stop: 05/01/23 08:59 Last Admin: 04/02/23 08:12 Dose: 100 mg Amlodipine Besylate (Amlodipine Besylate 5 Mg Tab) 10 mg PO QAM [facility] Stop: 05/01/23 08:59 Last Admin: 04/02/23 08:08 Dose: 10 mg Aspirin (Aspirin 81 Mg Ectab) 81 mg PO QDD [facility] Stop: 04/30/23 16:29 Last Admin: 04/01/23 16:35 Dose: 81 mg Atorvastatin Calcium (Atorvastatin 10 Mg Tab) 10 mg PO QAM [facility] Stop: 05/01/23 08:59 Last Admin: 04/02/23 08:11 Dose: 10 mg Bisacodyl (Bisacodyl 10 Mg Supp) 10 mg IA DAILY PRN PRN Reason: Constipation Stop: 04/30/23 13:29 Cetirizine HCl (Cetirizine Hcl 10 Mg Tablet) 10 mg PO QAM [facility] Stop: 05/01/23 08:59 Last Admin: 04/02/23 08:08 Dose: 10 mg Diphenhydramine HCl (Diphenhydramine Capsule 25 Mg Cap) 25 mg PO Q6H PRN PRN Reason: itching Stop: 04/30/23 13:29 Duloxetine HCl (Duloxetine Hcl 60 Mg Cap) 60 mg PO QAM [facility] Stop: 05/01/23 08:59 Last Admin: 04/02/23 08:10 Dose: 60 mg Epinephrine HCl (Epinephrine Inj 1 Mg/Ml Amp) 0.3 mg IM UD PRN PRN Reason: anaphylaxis Stop: 04/30/23 13:55 Famotidine (Famotidine 20 Mg Tab) 20 mg PO BID [facility] Stop: 04/30/23 20:59 Last Admin: 04/02/23 08:08 Dose: 20 mg Famotidine (Famotidine 20 Mg Tab) 20 mg PO Q12H PRN PRN Reason: Dyspepsia Stop: 04/30/23 13:29 Finasteride ([facility]asteride 5 Mg Tab) [facility] [place] Stop: 05/01/23 08:59 Last Admin: 04/02/23 08:11 Dose: 5 mg Gabapentin (Gabapentin 300 Mg Cap) 600 mg PO TID [facility] Stop: 04/30/23 13:59 Last Admin: 04/02/23 08:11 Dose: 600 mg Hydromorphone HCl (Hydromorphone Inj 0.5 Mg/0.5 Ml Syr) 0.5 mg IV Q3H PRN PRN Reason: MODERATE Pain (Scale 4,5,6) & Pre PT Stop: 04/14/23 13:29 Hydromorphone HCl (Hydromorphone Inj 1 Mg/Ml Syringe) 1 mg IV Q3H PRN PRN Reason: SEVERE Pain (Scale 7,8,9,10) Stop: 04/14/23 13:29 Hydroxyzine HCl (Hydroxyzine Hcl 25 Mg Tab) 25 mg PO Q8H PRN PRN Reason: Anxiety Stop: 04/30/23 13:29 Promethazine HCl 12.5 mg/ (Sodium Chloride) 50.5 mls @ 202 mls/hr IV Q6H PRN PRN Reason: Nausea &/or Vomiting Stop: 04/30/23 13:29 Dexamethasone 6 mg/ Syringe 1.5 mls @ 1 mls/min IV DAILY [facility] Stop: 04/03/23 09:02 Last Admin: 04/02/23 08:20 Dose: 1 mls/min Influenza Virus Vaccine Quadrival (Do Not Administer Flu Vaccine) 1 each N/A PRN PRN PRN Reason: Notification Stop: 04/30/23 13:29 Lorazepam (Lorazepam 0.5 Mg Tab) 0.5 mg PO Q8H PRN PRN Reason: Sedation/Anxiety Stop: 04/30/23 13:29 Lorazepam (Lorazepam 2 Mg/1 Ml Vial) 0.5 mg IV Q8H PRN PRN Reason: Sedation/Anxiety Stop: 04/30/23 13:29 Magnesium Hydroxide (Magnesium Hydroxide Susp 30 Ml Udc) 30 ml PO Q24H PRN PRN Reason: Constipation Stop: 04/30/23 13:29 Metoclopramide HCl (Metoclopramide Hcl Inj 5 Mg/Ml 2 Ml Vial) 10 mg IV Q6H PRN PRN Reason: Nausea &/or Vomiting Stop: 04/30/23 13:29 Miscellaneous (Remove Nicoderm Patch) 1 each N/A DAILY@0859 [facility] Stop: 05/01/23 08:58 Last Admin: 04/02/23 08:12 Dose: 1 each Naloxone HCl (Naloxone Hcl 0.4 Mg/1 Ml Vial/Carp) 0.1 mg IV Q5M PRN PRN Reason: Oversedation/Resp depression Stop: 04/30/23 13:29 Nicotine (Nicotine 21 Mg/24 Hr Tdsy) 21 mg TD DAILY [facility] Stop: 05/01/23 08:59 Last Admin: 04/02/23 08:13 Dose: 21 mg Ondansetron HCl (Ondansetron Inj 2 Mg/Ml 2 Ml Vial) 4 mg IV Q6H PRN PRN Reason: Nausea &/or Vomiting Stop: 04/30/23 13:29 Ondansetron HCl (Ondansetron 4 Mg Od Tab) 4 mg PO Q6H PRN PRN Reason: Nausea Stop: 04/30/23 13:29 Oxycodone HCl (Oxycodone Hcl Ir 5 Mg Tab (Immediate Release)) 5 - 10 mg PO Q4H PRN PRN Reason: Pain & Pre PT Stop: 04/14/23 13:29 Last Admin: 04/01/23 00:50 Dose: 10 mg Pantoprazole Sodium (Pantoprazole 40 Mg Tab) 40 mg PO QAM [facility] Stop: 05/01/23 08:59 Last Admin: 04/02/23 08:10 Dose: 40 mg Pneumococcal Polyvalent Vaccine (Do Not Administer Pneumococcal Vaccine) 1 each N/A PRN PRN PRN Reason: Notification Stop: 04/30/23 13:29 Polyethylene Glycol (Polyethylene (Miralax) 17 Gm Pack) 17 gm PO Q6 [facility] Stop: 05/01/23 05:59 Last Admin: 04/02/23 06:34 Dose: 17 gm Senna/Docusate Sodium (Docusate Sodium/Senna 50/8.6mg Tab) 2 tab PO HS [facility] Stop: 04/30/23 20:59 Last Admin: 04/01/23 20:13 Dose: 2 tab Sodium Biphosphate/Sodium Phosphate (Sod Phosphate/Sod Biphosphate Enema 132 Ml Btl) 132 ml IA ONE PRN PRN Reason: Constipation Stop: 04/30/23 13:29 Tamsulosin HCl (Tamsulosin Hcl 0.4 Mg Cap) 0.4 mg PO DAILY [facility] Stop: 05/01/23 08:59 Last Admin: 04/02/23 08:10 Dose: 0.4 mg Tramadol HCl (Tramadol Hcl 50 Mg Tablet) 50 - 100 mg PO Q4H PRN PRN Reason: Moderate-Severe pain & Pre PT Stop: 04/30/23 13:29 Last Admin: 04/01/23 20:19 Dose: 50 mg
== END 2023-04-02 11:15 | disposition home or self-care (01) | DRG 455 ==
LOC: ASU 07:16 → 3N 11:56